=== PATIENT | male | born 1955 | race Caucasian/White ===

== ENCOUNTER 2019-08-29 14:07 | Emergency (ER) | payer MEDICARE, SELFPAY | END 2019-08-29 14:18 | disposition left against medical advice (07) | LOC: EXPBETH 14:12 | PROVIDERS: Emergency Provider Nurse Practitioner Family; PCP Family Medicine | DX: Z53.21 Procedure and treatment not carried out due to patient leaving prior to being seen by health care provider (principal) | CPT/HCPCS: 99199 ==

== ENCOUNTER 2020-09-26 12:33 | Outpatient (CLI) | payer MEDICARE, SELFPAY ==
--- NOTE | ~2020-09-26 | MR_ITS ---
EXAMINATION: MR brain/brain stem wo con DATE: 09/26/2020 15:22 INDICATION: Other amnesia. TECHNIQUE: Magnetic resonance imaging (MRI) of the brain and brainstem was performed without intraven ous contrast. Sequences included sagittal and axial T1-weighted FSE, axial diffusion-weighted FS EPI, axial T2*-weighted GRE, axial T2-weighted FLAIR Propeller, and axial T2-weighted Propeller. Apparent diffusion coefficient (ADC) maps were created. COMPARISON: None. FINDINGS: There is no intracranial hemorrhage, acute infarction, or abnormal intracranial mass lesion . The ventricles are normal in size. There is mucosal thickening in the paranasal sinuses. The orbits are normal. The mastoid air cells are normal. IMPRESSION: 1. Normal brain. Reviewed, dictated and finalized at location A. IMPRESSION: 1. Normal brain.
[2020-09-26 13:03] LABS: Hematocrit 42.1 % (42.0-52.0); Hemoglobin 14.2 g/dL (14.0-18.0); Mean Corpuscular HGB Conc 33.7 g/dl (32-36); Mean Corpuscular Volume 91.9 fl (80-100); Mean Platelet Volume 10.2 fl (7.4-10.4); Platelet Count Result 163 k/mm3 (150-375); Red Blood Count 4.58 M/mm3 (4.6-6.20); Red Cell Distribution Width 12.4 % (11.5-14.5); White Blood Count 4.7 K/mm3 (4.5-10.0)
[2020-09-26 13:21] LABS: Alanine Aminotransferase 25 U/L (4-50); Albumin Level 4.5 g/dL (3.5-5.1); Alkaline Phosphatase 80 U/L (38-126); Anion Gap 5 mmol/L (8-16); Aspartate Amino Transferase 34 U/L (17-59); Bilirubin,Total 0.8 mg/dL (0.2-1.3); Blood Urea Nitrogen 31 mg/dL (9-20); Calcium 9.9 mg/dL (8.4-10.2); Carbon Dioxide 36 mmol/L (22-30); Chloride 99 mmol/L (98-107); Estimated Glomerular Filt Rate > 60; Glucose 157 mg/dL (75-110); Potassium 4.2 mmol/L (3.4-5.0); Sodium 140 mmol/L (137-145)
--- NOTE | 2020-09-28 11:35 | WPDNEUROLOGY ---
Neurology EEG Report General Information Date of Study: 09/26/20 TEST EEG DIAGNOSIS memory loss CONDITION OF RECORDING awake drowsy and sleep EEG NUMBER [id number] CLINICAL HISTORY patient reported he has noted a decline in his memory for the last several months and seems to be getting worse. There is strong family history of dementia EEG DESCRIPTION basic resting occipital frequency consists of large amount of well-organized low voltage 11 to 13 hertz per 2nd alpha admixed with low-voltage 15 to 18 hertz per 2nd beta intermittent regular EKG artifact seen during wakefulness drowsiness and sleep. Low-voltage beta activity seen diffusely admixed with waxing and waning posterior alpha rhythm during drowsiness. Bilateral symmetrical sleep activity seen during sleep. Hyperventilation not done. Photic stimulation produced poor drive. Non paroxysmal. Nonfocal. Nonlateralizing. IMPRESSION No significant abnormalities noted
[2020-10-01 21:24] LABS: Albumin 4.1 g/dL (3.8-4.8); Alpha 1 Globulin 0.3 g/dL (0.2-0.3); Alpha 2 Globulin 0.8 g/dL (0.5-0.9); Beta 1 Globulin 0.4 g/dL (0.4-0.6); Gamma Globulin 0.8 g/dL (0.8-1.7); Protein, Total 6.8 g/dL (6.1-8.1)
== END 2020-09-26 12:34 | disposition home or self-care (01) ==
PROVIDERS: PCP Family Medicine; Visit Provider Psychiatry & Neurology Neurology
DX: R41.3 Other amnesia (principal); F03.90 Unspecified dementia, unspecified severity, without behavioral disturbance, psychotic disturbance, mood disturbance, and anxiety
CPT/HCPCS: 36415; 70551; 80053; 82607; 84155; 84165; 85027; 95816

== ENCOUNTER 2021-04-10 16:50 | Emergency (ER) | payer MEDICARE, SELFPAY ==
[2021-04-10 16:57] VITALS: BP 175/90; PULSE 65; RESP 18; TEMP 36.1; O2SAT 98
[2021-04-10 17:09] VITALS: BP 175/90; PULSE 65; RESP 18; TEMP 36.1; O2SAT 98
--- NOTE | 2021-04-10 17:18 | ED.EAR ---
HPI - Ear Problem General Chief complaint: Ear Stated complaint: tip of hearing aid in ear Time Seen by Provider: 04/10/21 17:04 Source: patient and RN notes reviewed Mode of arrival: ambulatory Limitations: no limitations History of Present Illness HPI Narrative: Patient presents today complaining that a piece of his hearing aid is caught in his right ear canal for the past 5 days. He has been flushing it with water and hydrogen peroxide and has not been able to get it out. He is able to visualize it with an instrument that he cleans his ears out with. Denies any current pain MD Complaint: foreign body Related Data Home Medications Medication Instructions Recorded Confirmed atorvastatin 80 mg tablet 80 mg PO DAILY 05/02/19 04/10/21 carvedilol 25 mg tablet 25 mg PO .daily with food tablet 05/02/19 04/10/21 isosorbide mononitrate 30 mg 30 mg PO DAILY 05/02/19 04/10/21 tablet,extended release 24 hr metformin 500 mg tablet 500 mg PO BID 05/02/19 04/10/21 losartan 25 mg tablet 25 mg PO DAILY 05/10/19 04/10/21 aspirin 81 mg tablet,delayed 81 mg PO DAILY 08/10/19 04/10/21 release ezetimibe 10 mg tablet 10 mg PO DAILY 07/15/20 04/10/21 ferrous sulfate 325 mg (65 mg 325 mg PO DAILY 07/15/20 04/10/21 iron) tablet Allergies Allergy/AdvReac Type Severity Reaction Status Date / Time No Known Allergies Allergy Verified 04/10/21 16:58 Review of Systems Review of Systems: CONSTITUTIONAL: Denies body aches, fever, chills, or sweats. EYES: Denies visual changes, redness, or discharge. ENT: Denies rhinorrhea, congestion, sore throat, or otalgia.+ Foreign body to right ear CARDIOVASCULAR: Denies chest pain, palpitations, or edema. RESPIRATORY: Denies cough or dyspnea. GASTROINTESTINAL: Denies abdominal pain, nausea, vomiting, or diarrhea. GENITOURINARY: Denies dysuria or hematuria. SKIN: Denies rash, itching, or wounds. MUSCULOSKELETAL: Denies back pain, joint pain, or myalgia. NEUROLOGIC: Denies headache, numbness, tingling, or weakness. PSYCH: Denies depression or anxiety. [facility] Past Medical History Medical History CAD (coronary artery disease) Chronic insomnia Essential hypertension Hypogonadism Obstructive sleep apnea syndrome in adult Surgical History Surgical History History of knee replacement S/P triple vessel bypass Family History Family History Father Family history of cardiovascular disease Mother Family history of cardiovascular disease Social History Social History Social History: former smoker Smoking packs per day: 1 Smoking cigarettes per day: 20.0 Years smoked: 10 Smoking pack-years: 10.00 Smoking status: Former smoker Tobacco type: cigarettes Second hand tobacco smoke exposure: No Smoking end date: 05/24/83 Alcohol intake: current Drinks per week: 5 Comments At time of signature, I have reviewed and agree with nursing past medical, surgical, social and family history unless otherwise noted. Please see nursing chart for further information. There is no relevant family history pertinent to the presenting complaint Exam Narrative: GENERAL: Well-appearing, well-nourished, and in no acute distress. HEAD: Normocephalic, atraumatic. EYES: EOMI. No redness or drainage. Conjunctivae normal. ENT: Mucous membranes pink and moist. Right ear: Black plastic foreign body completely occludes ear canal. It is deep in the ear canal, likely very close to the TM. NECK: Normal AROM. CHEST: No respiratory distress. EXTREMITIES: Normal range of motion. No edema. SKIN: Warm, dry, no rash. Capillary refill normal. Normal skin turgor. NEURO: No focal deficits. Alert and oriented x3. Gait steady. PSYCH: Normal affect. No signs of depress
== END 2021-04-10 17:25 | disposition home or self-care (01) ==
PROVIDERS: Emergency Provider Nurse Practitioner; PCP Family Medicine
DX: T16.1XXA Foreign body in right ear, initial encounter (principal); X58.XXXA Exposure to other specified factors, initial encounter; I25.10 Atherosclerotic heart disease of native coronary artery without angina pectoris; I10 Essential (primary) hypertension; G47.33 Obstructive sleep apnea (adult) (pediatric); Z79.82 Long term (current) use of aspirin; Z87.891 Personal history of nicotine dependence
CPT/HCPCS: 69200; 99212; G0463

== ENCOUNTER 2022-02-24 15:20 | Emergency (ER) | payer MEDICARE, SELFPAY ==
--- NOTE | ~2022-02-24 | XR_ITS ---
EXAMINATION: XR foot LT min 3V DATE: 02/24/2022 15:47 INDICATION: Left foot injury and pain. TECHNIQUE: 4 views of left foot were obtained. COMPARISON: None. FINDINGS: Bone alignment is normal. There is fusion of fifth middle and distal phalanges. There is a stellate fracture of the fusion mass. There is a nondisplaced stellate fracture of head and neck of f ifth proximal phalanx. There is severe osteoarthritis of first metatarsophalangeal joint and mild ost eoarthritis of talonavicular joint and some of the interphalangeal joints. There are enthesophytes at the posterior and plantar aspects of calcaneal tuberosity. IMPRESSION: 1. Nondisplaced stellate fractures of the fifth digit phalanges. 2. Polyarticular osteoarthritis. Reviewed, dictated and finalized at location A.
[2022-02-24 15:26] VITALS: BP 114/58; PULSE 64; RESP 14; TEMP 36.4; O2SAT 98
--- NOTE | 2022-02-24 15:37 | ED.LOWEXIN ---
HPI - Extremity Injury (Lower) General Chief Complaint: Extremity Injury, Lower Stated Complaint: Injury to left pinky toe Time Seen by Provider: 02/24/22 15:37 Source: patient Mode of arrival: ambulatory Limitations: no limitations History of Present Illness HPI Narrative: 66 y/o male presented for c/o left little toe pain after injury 3 days ago. States he dropped a piece of steel equipment on the toe. Endorses swelling and bruising to the site, and the pain now radiates across the top of the foot. Has not taken anything for pain. Denies numbness or tingling to the toe. Related Data Home Medications Medication Instructions Recorded Confirmed ferrous sulfate 325 mg (65 mg 325 mg PO DAILY 07/15/20 09/11/21 iron) tablet (Feosol) Allergies Allergy/AdvReac Type Severity Reaction Status Date / Time No Known Allergies Allergy Verified 02/24/22 15:36 Review of Systems Review of Systems: CONSTITUTIONAL: Denies body aches, fever, chills CARDIOVASCULAR: Denies chest pain, palpitations, or edema. RESPIRATORY: Denies cough or dyspnea. SKIN: Denies rash or wounds. MUSCULOSKELETAL: Reports left toe pain NEUROLOGIC: Denies headache, numbness, tingling, or weakness. All systems reviewed & are unremarkable except as noted in HPI and below PMFSH Past Medical History Medical History CAD (coronary artery disease) Chronic insomnia Essential hypertension Hypogonadism Obstructive sleep apnea syndrome in adult Surgical History Surgical History History of knee replacement S/P triple vessel bypass Family History Family History Father Family history of cardiovascular disease Mother Family history of cardiovascular disease Social History Social History Social History: former smoker Smoking packs per day: 1 Smoking cigarettes per day: 20.0 Years smoked: 10 Smoking pack-years: 10.00 Smoking status: Former smoker Tobacco type: cigarettes Second hand tobacco smoke exposure: No Smoking end date: 05/24/83 Alcohol intake: current Drinks per week: 5 Comments At time of signature, I have reviewed and agree with nursing past medical, surgical, social and family history unless otherwise noted. Please see nursing chart for further information. There is no relevant family history pertinent to the presenting complaint Exam Narrative: GENERAL: Well-appearing CHEST: Speaks in full sentences. No respiratory distress. HEART: Regular rate and rhythm. Normal and equal peripheral pulses. EXTREMITIES: Left 5th toe with moderate swelling and bruising; tenderness to palpation lateral aspect of proximal phalanx; no obvious deformity; foot has normal strength, sensation, and normal range of motion with subjective 5th toe pain with movement. Bruising noted across 2nd-5th toes at MTP sites. No open wounds or obvious deformity; pulse palpable and equal bilaterally, skin warm, dry, pink. Capillary refill less than 3 seconds. SKIN: Warm, dry, no rash. NEURO: Alert and oriented x3. PSYCH: Normal mood and affect Course Course Emergency Course: Patient is aware of diagnosis, understands and agrees to treatment plan. Anticipatory guidance given. Patient agrees to follow-up as directed and is aware of reasons to seek care at the emergency department. Portions of this record may have been created with voice recognition software Level of Care: Express Care Visit Vital Signs Vital signs: Vital Signs Temperature 97.6 F 02/24/22 15:26 Pulse Rate 64 02/24/22 15:26 Respiratory Rate 14 02/24/22 15:26 Blood Pressure 114/58 L 02/24/22 15:26 Pulse Oximetry 98 02/24/22 15:26 Oxygen Delivery Room Air 02/24/22 15:26 Temperature 97.6 F 02/24/22 15:38 Pulse Rate 64
[2022-02-24 15:38] VITALS: BP 114/58; PULSE 64; RESP 14; TEMP 36.4; O2SAT 98
== END 2022-02-24 16:18 | disposition home or self-care (01) ==
PROVIDERS: Emergency Provider Nurse Practitioner Family; PCP Family Medicine
DX: S92.515A Nondisplaced fracture of proximal phalanx of left lesser toe(s), initial encounter for closed fracture (principal); W20.8XXA Other cause of strike by thrown, projected or falling object, initial encounter; I25.10 Atherosclerotic heart disease of native coronary artery without angina pectoris; I10 Essential (primary) hypertension; G47.33 Obstructive sleep apnea (adult) (pediatric); Z87.891 Personal history of nicotine dependence
CPT/HCPCS: 73630; 99214; G0463

== ENCOUNTER 2023-12-13 08:08 | Outpatient (CLI) | payer OTHER, SELFPAY ==
[2023-12-13 18:47] LABS: Hematocrit 45.2 % (42.0-52.0); Hemoglobin 14.5 g/dL (14.0-18.0); Mean Corpuscular HGB Conc 32.1 g/dl (32-36); Mean Corpuscular Hemoglobin 29.9 pg (26-34); Mean Corpuscular Volume 93.2 fl (80-100); Mean Platelet Volume 10.6 fl (7.4-10.4); Platelet Count Result 199 k/mm3 (150-375); Red Blood Count 4.85 M/mm3 (4.6-6.20); Red Cell Distribution Width 14.5 % (11.5-14.5); White Blood Count 3.2 K/mm3 (4.5-10.0)
[2023-12-13 19:03] LABS: Alanine Aminotransferase 22 U/L (6-50); Alkaline Phosphatase 79 U/L (38-126); Anion Gap 9 mmol/L (4-12); Aspartate Amino Transferase 48 U/L (17-59); Bilirubin,Total 0.7 mg/dL (0.2-1.3); Blood Urea Nitrogen 25 mg/dL (9-20); Calcium 9.1 mg/dL (8.4-10.2); Carbon Dioxide 30 mmol/L (22-30); Chloride 98 mmol/L (98-107); Cholesterol 206 mg/dL (0-200); Estimated Glomerular Filt Rate > 60; Glucose 122 mg/dL (65-110); HDL Direct 39 mg/dL; Sodium 137 mmol/L (137-145); Triglycerides 171 mg/dL (<150)
[2023-12-13 19:14] LABS: LDL Cholesterol Direct 138 mg/dL
[2023-12-13 19:18] LABS: Hemoglobin A1C 7.1 % (<5.7)
[2023-12-13 19:31] LABS: Creatinine Urine 110.7 mg/dL
[2023-12-13 19:34] LABS: Prostate Specific Antigen 3.1 ng/mL (< OR = 4.0)
[2023-12-13 19:40] LABS: MALB Creatinine Ratio 112.3 mg/g (0-30); Microalbumin Urine Random 124.3 mg/L (0-16.7)
[2023-12-17 18:14] LABS: Testosterone Free 27.6 pg/mL (35.0-155.0); Testosterone Total 210 ng/dL (250-1100)
== END 2023-12-13 08:09 | disposition home or self-care (01) ==
PROVIDERS: PCP Nurse Practitioner Adult Health; Visit Provider Family Medicine
DX: Z12.5 Encounter for screening for malignant neoplasm of prostate (principal); I10 Essential (primary) hypertension; E11.9 Type 2 diabetes mellitus without complications; E29.1 Testicular hypofunction
CPT/HCPCS: 36415; 80053; 80061; 82043; 82565; 83036; 84153; 84402; 84403; 85027; G0103

== ENCOUNTER 2024-01-19 08:48 | Outpatient (CLI) | payer OTHER, SELFPAY ==
[2024-01-19 20:23] LABS: Albumin Level 4.2 g/dL (3.5-5.1); Anion Gap 9 mmol/L (4-12); Blood Urea Nitrogen 19 mg/dL (9-20); Calcium 9.1 mg/dL (8.4-10.2); Carbon Dioxide 32 mmol/L (22-30); Chloride 96 mmol/L (98-107); Estimated Glomerular Filt Rate 60; Glucose 112 mg/dL (65-110); Phosphorus 3.4 mg/dL (2.5-4.5); Potassium 4.2 mmol/L (3.4-5.0); Sodium 137 mmol/L (137-145)
== END 2024-01-19 08:49 | disposition home or self-care (01) ==
PROVIDERS: PCP Nurse Practitioner Adult Health; Visit Provider Nurse Practitioner Adult Health
DX: N28.9 Disorder of kidney and ureter, unspecified (principal)
CPT/HCPCS: 36415; 80069

== ENCOUNTER 2024-03-23 08:28 | Outpatient (CLI) | payer OTHER, SELFPAY ==
[2024-03-23 19:03] LABS: Alanine Aminotransferase 28 U/L (6-50); Albumin Level 4.5 g/dL (3.5-5.1); Alkaline Phosphatase 77 U/L (38-126); Anion Gap 10 mmol/L (4-12); Aspartate Amino Transferase 82 U/L (17-59); Bilirubin,Total 0.7 mg/dL (0.2-1.3); Blood Urea Nitrogen 21 mg/dL (9-20); Calcium 9.6 mg/dL (8.4-10.2); Carbon Dioxide 32 mmol/L (22-30); Chloride 100 mmol/L (98-107); Cholesterol 99 mg/dL (0-200); Estimated Glomerular Filt Rate > 60; Glucose 96 mg/dL (65-110); HDL Direct 34 mg/dL; Potassium 4.3 mmol/L (3.4-5.0); Sodium 142 mmol/L (137-145); Triglycerides 74 mg/dL (<150)
[2024-03-23 19:14] LABS: LDL Cholesterol Direct 45 mg/dL
[2024-03-23 19:26] LABS: Creatinine Urine 81.9 mg/dL
[2024-03-23 19:34] LABS: Prostate Specific Antigen 2.1 ng/mL (< OR = 4.0)
[2024-03-23 19:44] LABS: MALB Creatinine Ratio 293.8 mg/g (0-30); Microalbumin Urine Random 240.6 mg/L (0-16.7)
[2024-03-23 22:46] LABS: Hemoglobin A1C 6.1 % (<5.7)
[2024-03-30 19:38] LABS: Testosterone Free 146.3 pg/mL (35.0-155.0); Testosterone Total 986 ng/dL (250-1100)
== END 2024-03-23 08:29 | disposition home or self-care (01) ==
PROVIDERS: PCP Nurse Practitioner Adult Health; Visit Provider Nurse Practitioner Adult Health
DX: E11.9 Type 2 diabetes mellitus without complications (principal); R79.89 Other specified abnormal findings of blood chemistry; R41.3 Other amnesia; Z12.5 Encounter for screening for malignant neoplasm of prostate
CPT/HCPCS: 36415; 80053; 80061; 82043; 82565; 82607; 83036; 84153; 84402; 84403; G0103

== ENCOUNTER 2024-09-07 10:21 | Outpatient (CLI) | payer OTHER, SELFPAY ==
--- OUTSIDE RECORDS SUMMARY | 2024-09-07 11:16 | XMS_ITS | Clinical Summary ---
Author Organization [facility] Medical Office Building B Address [address] [place] [address] Care Team Providers Care Weigher Production Name Role Phone Dimitri Keith MD Primary Care Provider [phone] Caleb Mazariegos NP Unavailable [phone] Antwan Monroy MD Unavailable [phone] Allergies No known active allergies Medications omeprazole (PriLOSEC) 20 mg capsule Take 1 capsule (20 mg total) by mouth daily 7 Active ferrous sulfate 325 mg (65 mg of elemental iron) tablet Take 1 tablet (325 mg total) by mouth daily with breakfast 8 Active donepeziL (ARICEPT) 10 mg tablet Take 1 tablet (10 mg total) by mouth nightly Active doxepin (SINEquan) 10 mg capsule Take 1 capsule (10 mg total) by mouth Active memantine (NAMENDA) 10 mg tabletIndication s:Moderate to Severe Alzheimer's Type Dementia Take 1 tablet (10 mg total) by mouth 2 (two) times a day Active isosorbide mononitrate ER (IMDUR) 30 mg 24 hr tablet Take 1 tablet (30 mg total) by mouth daily Active aspirin 81 mg enteric coated tabletIndication s:prevention of thrombosis Take 1 tablet (81 mg total) by mouth 2 (two) times a day 60 tablet 4 Active Additional Information Patient taking differently:81 mg oralDaily, Indications: prevention of thrombosis, Reported on 01/12/2024 ascorbic acid (VITAMIN C) 500 mg tablet,chewable Take 1 tablet/chew tab (500 mg total) by mouth 2 (two) times a day 60 tablet/chew tab 4 Active Nexlizet 180-10 mg tablet Take 1 tablet by mouth daily 4 Active ergocalciferol (VITAMIN D) 50,000 unit capsule Take 1 capsule (50,000 Units total) by mouth once a week 4 Active clopidogreL (PLAVIX) 75 mg tablet Take 1 tablet (75 mg total) by mouth daily 4 Active ezetimibe (ZETIA) 10 mg tablet Take 1 tablet (10 mg total) by mouth daily 4 Active polyethylene glycol (MIRALAX) 17 gram/dose bulk powderIndication s:constipation Take 17 g by mouth daily as needed (constipation) 238 g 4 Active buPROPion XL (WELLBUTRIN XL) 150 mg 24 hr tablet Take 1 tablet (150 mg total) by mouth daily 4 Active tirzepatide (Mounjaro) 2.5 mg/0.5 mL pen injector Inject 0.5 mL (2.5 mg total) under the skin once a week Start Mounjaro 2.5mg weekly for 4 weeks, then increase to 5.0 mg weekly for 4 weeks it tolerated 2 mL 6 4 Active blood glucose diagnostic (glucose blood) strip Check blood sugar daily 100 each 5 4 Active methylPREDNISolo ne (Medrol, Noe,) 4 mg Dosepack Take as directed on package 1 packet 4 Active amLODIPine (NORVASC) 10 mg tablet Take 1 tablet (10 mg total) by mouth daily 4 Active atorvastatin (LIPITOR) 80 mg tablet Take 1 tablet (80 mg total) by mouth daily 4 Active citalopram (CeleXA) 40 mg tablet Take 1 tablet (40 mg total) by mouth daily 4 Active Multaq 400 mg tablet Multaq 400 mg tablet 4 Active testosterone 20.25 mg/1.25 gram (1.62 %) gel in metered-dose pump 20.25 MG TOPICALLY DAILY APPLY 1 PUMP AMOUNT OVER MAX AREA OF ONE UPPER ARM AND SHOULDER 5 Active eszopiclone (LUNESTA) 3 mg tablet TAKE 1 TABLET BY MOUTH EVERY DAY AT BEDTIME NEEDED FOR INSOMNIA 5 Active losartan (COZAAR) 50 mg tablet Take 1 tablet (50 mg total) by mouth 2 (two) times a day 5 Active metFORMIN (GLUCOPHAGE) 500 mg tablet TAKE 1 TABLET BY MOUTH TWICE A DAY WITH MORNING AND EVENING MEAL 4 Active Jardiance 25 mg tablet Take 1 tablet (25 mg total) by mouth daily 30 tablet 5 5 Active Hospital, Clinic, or Other Facility Administered Medication Ordered Dose Route Frequency Start Date End Date Status lidocaine (XYLOCAINE) 20 mg/mL (2 %) injection 3 mLIndications:Admi nistration of Local Anesthesia 3 mL One-Time Injection 08/16/2024 08/16/2024 Ended lidocaine (XYLOCAINE) 20 mg/mL (2 %) injection 3 mLIndications:Admi nistration of Local Anesthesia 3 mL One-Time Injection 08/16/2024 08/16/2024 Ended methylPREDNISolone acetate (DEPO-medrol) injection 80 mgIndications:Oste oarthritis of bilateral glenohumeral joints,Osteoarthri tis of AC (acromioclavicular ) joints, bilateral 80 mg intra-artic One-Time Injection 08/16/2024 08/16/2024 Ended methylPREDNISolone acetate (DEPO-medrol) injection 80 mgIndications:Oste oarthritis of bilateral glenohumeral joints,Osteoarthri tis of AC (acromioclavicular ) joints, bilateral 80 mg intra-artic One-Time Injection 08/16/2024 08/16/2024 Ended Active Problems Problem Noted Date Diagnosed Date Dyslipidemia 01/13/2024 Chest pain 01/12/2024 Elevated troponin 01/12/2024 S/P coronary artery stent placement 01/12/2024 Hx of CABG 01/12/2024 Increase in serum creatinine from prior measurem ent 01/12/2024 Primary osteoarthritis of right knee 08/05/2023 Personal history of colonic polyps 09/17/2022 Encounter for screening colonoscopy 09/17/2022 Foreign body of right ear 04/28/2021 Assessment & Plan (04/28/2021 8:47 AM DRY COLOR MIXER): Avoid ear cleaning techniques Avoid water to ears Continue Hearing aids Sensorineural hearing loss (SNHL) of both ears 1 06/29/2020 Assessment & Plan (04/28/2021 8:47 AM DRY COLOR MIXER): Continue Hearing aids Impotence due to erectile dysfunction 02/11/2016 Left shoulder pain 10/03/2015 History of sleeve gastrectomy 07/02/2015 Chronic coronary artery disease 04/30/2015 Sensorineural hearing loss 09/10/2014 Corneal abrasion 03/23/2014 Ptosis of eyelid 03/23/2013 Blurred vision 02/22/2013 Dermatochalasis 02/22/2013 Trace cataracts 02/22/2013 Obesity surgery status 04/29/2012 Achilles tendinitis of right lower extremity 06/2011 Type 2 diabetes mellitus 11/24/2011 Impingement syndrome of shoulder 12/03/2009 Depression 07/30/2009 LEA (obstructive sleep apnea) 07/30/2009 Obesity 07/25/2009 GERD (gastroesophageal reflux disease) 8 Hypertension 03/29/2008 CAD (coronary artery disease) 01/19/2008 Overview (05/28/2017): Overview: ? 2vd in 2000 on cath at [facility]. Normal stress echo 2008 CABG 03/2015 - scanned report in chart PCI SENIOR ACCOUNT CLERK to RCA 11/11/2015 Hyperlipemia 01/19/2008 Testicular hypogonadism 01/19/2008 Encounters Date Type Department Care Team Description 08/16/2024 8:30 AM CDT Office Visit [facility] Orthopedics and Sports Medicine [address] [place] [address] [address], [place] [address] Sukhjinder Kaufman PA Osteoarthritis of bilateral glenohumeral joints (Primary Dx); Osteoarthritis of AC (acromioclavicular) joints, bilateral 08/16/2024 7:52 AM CDT - 08/16/2024 11:59 PM CDT Hospital Encounter [facility] Orthopedics and Sports Medicine [address] [place] [address] [address] [place] [address] Discharge Disposition: Discharge to home or self care 08/14/2024 Telephone [facility] Orthopedics and Sports Medicine [address] [facility] [address] [place] [address] Kenyon Ayon MD 06/20/2024 10:30 AM DRY COLOR MIXER Office Visit [facility] Diabetes Endocrine Care at [address] [place] [address] Oren Peguero, DO Type 2 diabetes mellitus with other specified complication, without long-term current use of insulin (HCC) (Primary Dx); Hypertension associated with diabetes (HCC); Hyperlipidemia associated with type 2 diabetes mellitus (HCC) from Last 3 Months Surgical History Surgery Date Site/Laterality Comments CARDIAC SURGERY CORONARY ARTERY BYPASS GRAFT 2014 3 vessels JOINT REPLACEMENT Left TKA KNEE SURGERY 05/11/2017 left knee CARDIAC STENT PLACEMENT 3 stents Medical History Medical History Date Comments Hiatal hernia GERD (gastroesophageal reflux disease) Hypertension Hypercholesteremia Diabetes mellitus (HCC) Type 2 diabetes mellitus (HCC) Sleep apnea Family History Medical History Relation Name Comments Gout Other Heart disease Other Hypertension Other Relation Name Status Comments Other Social History Tobacco Use Types Packs/Day Years Used Date Smoking Tobacco: Former Cigarettes Q uit: 1967 Smokeless Tobacco: Never Tobacco Cessation:Counseling Given: Not Answered Alcohol Use Standard Drinks/Week Comments Yes 0 (1 standard drink = 0.6 oz pur e alcohol) OCCASIONAL [employer] Utilities Answer Date Recorded In the past 12 months has e electric, gas, oil, or water company threatened to shut off services in your home? No 01/13/2024 Social Connection and Isolat ion Panel [NHANES] Answer Date Recorded In a typical week, how many times do you talk on the phone with family, friends, or neighbors? More than three times a week 01/13/2024 How often do you get togethe r with friends or relatives? More than three times a week 01/13/2024 How often do you attend chur ch or amish services? More than 4 times per year 01/13/2024 Do you belong to any clubs o r organizations such as gnosticism groups, unions, fraternal or athletic groups, or school groups? Yes 01/13/2024 How often do you attend meet ings of the clubs or organizations you belong to? More than 4 times per year 01/13/2024 Are you , , di vorced, , never , or living with a partner? 01/13/2024 AUDIT-C Answer Date Recorded Q1: How often do you have a drink containing alc ohol? 2-3 times a week 08/10/2023 Q2: How many drinks containi ng alcohol do you have on a typical day when you are drinking? 1 or 2 08/10/2023 Q3: How often do you have si x or more drinks on one occasion? Never 08/10/2023 Overall Financial Resource Strain (CARDIA) Answe r Date Recorded How hard is it for you to pa y for the very basics like food, housing, medical care, and heating? Not hard at all 01/13/2024 Hunger Vital Sign Answer Date Recorded Within the past 12 months, y ou worried that your food would run out before you got the money to buy more. Never true 01/13/20 24 Within the past 12 months, t he food you bought just didn't last and you didn't have money to get more. Never true 01/13/2024 PRAPARE - Transportation Answer Date Re corded In the past 12 months, has l ack of transportation kept you from medical appointments or from getting medications? No 12/23 In the past 12 months, has l ack of transportation kept you from meetings, work, or from getting things needed for daily living? No 01/13/2024 Housing Stability Vital Sign Answer Martin e Recorded In the last 12 months, was t here a time when you were not able to pay the mortgage or rent on time? No 01/13/2024 In the past 12 months, how m any times have you moved where you were living? 0 01/13/2024 At any time in the past 12 m [facility], were you homeless or living in a senior care (including now)? No 01/13/2024 Personal Safety Answer Date Recorded Have you ever been in or are you currently in a harmful physical or emotional relationship or is someone making you feel afraid or unsafe? Denies 01/11/2024 Sex and Gender Information Value Date Recorded Sex Assigned at Not on file Legal Sex Male 4:37 PM DRY COLOR MIXER Gender Identity Not on file Sexual Orientation Straight 04/21/2021 7: 57 AM DRY COLOR MIXER Obstetrics History Last Filed Vital Signs Vital Sign Reading Time Taken Comments Blood Pressure 151/79 08/16/2024 8:34 AM CDT Pulse 64 08/16/2024 8:34 AM CDT Temperature 36.9 C (98.5 F) 01/14/2024 11:24 AM CDT Respiratory Rate 15 01/14/2024 3:00 PM CDT Oxygen Saturation 92% 01/14/2024 3:00 PM CDT Inhaled Oxygen Concentration - - Weight 96.6 kg (213 lb) 08/16/2024 8:34 AM CDT Height 175.3 cm (5' 9 ) 08/16/2024 8:34 AM CDT Body Mass Index 31.45 08/16/2024 8:34 AM CDT Plan of Treatment Health Maintenance Due Date Last Done Comments Depression Screening 1955 Hepatitis C Screening 1955 Hepatitis B Screening 1972 Well Visit 65+ 08/18/2019 Zoster Vaccine (2 of 3) 04/14/2021 02/17/2021, 03/20 Pneumococcal vaccine 65+ (2 of 2 - PCV) 02/17/2022 02/17/2021, 02/11/2011 Covid-19 Vaccine (2 - 2023-2 5 season) 2024 12/04/2020 Influenza Vaccine (#1) 2024 3, 02/23/2012, 02/11/2011 Dilated Eye Exam 06/23/2024 06/23/2023 Hemoglobin A1C 12/18/2024 06/20/2024, 082 07/2023, 05/03/2017 Lipid Panel 01/11/2025 01/12/2024, 07/3 05/2023, 07/05/2015, Additional history exists Fall Risk Assessment 01/13/2025 01/14/2024 Foot Exam 03/14/2025 03/14/2024 Albumin Creatinine Ratio, Urine 05/09/2025 , 12/22/2023 eGFR 05/09/2025 05/09/2024, 12/23, 01/13/2024, Additional history exists DTaP/Tdap/Td Vaccine (2 - Td or Tdap) 10/14/2025 10/15/2015, 10/22/2005 Colon Cancer Screening-Colonoscopy 09/25/2032 09/25/2022 Abdominal Aortic Aneurysm (A AA) Screen Completed 08/29/2019, 04/05/2014 Colon Cancer Screening-CT Colonography Discontinued 09/25/2022 Colon Cancer Screening-DNA Stool Discontinued 09/26/19 Colon Cancer Screening-FIT Discontinued 09/25/2022 Colon Cancer Screening-Sigmoidoscopy Discontinued 09/25/2022 Medical Devices Implanted Type Area Vacuum Tester Cans Device Identifier Shelf Expiration Date Model / Serial / Lot Cement Bone Smartset Gentamicin 40 Gm High Viscosity - [id number] Implanted:Qty: 1 on 05/11/2017 by Kenyon Ayon MD at [facility] Left: Knee [employer] 09/20/2018 [id number] / / [id number] Cement Bone Smartset Gentamicin 40 Gm High Viscosity - [id number] Implanted:Qty: 1 on 05/11/2017 by Kenyon Ayon MD at [facility] Left: Knee [employer] 10/21/2018 [id number] / / [id number] Stem Femoral Attune L50 Mm Od14 Mm Knee Cemented Revision Sterile - [id number] Implanted:Qty: 1 on 05/11/2017 by Kenyon Ayon MD at [facility] Left: Knee [employer] 03/23/2027 [id number] / / [id number] Bsplt Tibial Attune 7 Rev Cmnt Fix Brng Strl Knee System - [id number] Implanted:Qty: 1 on 05/11/2017 by Kenyon Ayon MD at [facility] Left: Knee [employer] 11/20/2026 [id number] / / [id number] Component Femoral Attune 7 Knee Left Cemented Posterior Stabilize Sterile - [id number] Implanted:Qty: 1 on 05/11/2017 by Kenyon Ayon MD at [facility] Left: Knee [employer] 01/21/2027 [id number] / / [id number] Dome Patellar Attune Aox H41 Mm Knee Cemented Medialize Sterile - [id number] Implanted:Qty: 1 on 05/11/2017 by Kenyon Ayon MD at [facility] Left: Knee [employer] 01/21/2022 [id number] / / [id number] Insert Tibial Attune Aox 7 H6 Mm Knee Posterior Stabilize Fix Bearing Sterile - [id number] Implanted:Qty: 1 on 05/11/2017 by Kenyon Ayon MD at [facility] Left: Knee [employer] 01/21/2022 [id number] / / [id number] [employer] Attune Fb Tib Base Sz 7 Por [id number] - [id number] Implanted:Qty: 1 on 08/10/2023 by Kenyon Ayon MD at [facility] Right: Knee [employer] [id number] 06/23/2033 [id number] / / [id number] [employer] Attune Cruciate Retain Cementless Knee Right 7 Component Femoral [id number] - [id number] Implanted:Qty: 1 on 08/10/2023 by Kenyon Ayon MD at [facility] Right: Knee [employer] [id number] 06/23/2033 [id number] / / [id number] [employer] Insert Tibial Knee Fixed Rm Posterior Stabilized Attune 6mm Size 7 Polyethylene [id number] - [id number] Implanted:Qty: 1 on 08/10/2023 by Kenyon Ayon MD at [facility] Right: Knee [employer] [id number] 12/21/2030 [id number] / / [id number] Medtronic Card Vasc Surgery 2.50 X 15mm Rios [employer] Rx Coronary Stent [id number] - [id number] Implanted:Qty: 1 on 01/13/2024 by Liam Mack MD at [facility] [employer] Card Vasc Surgery 10/07/2026 [id number] / / [id number] Procedures Procedure Name Priority Date/Time Associated Diagnosis Comments MT ARTHROCENTESIS ASPIR&/INJ MAJOR JT/BURSA W/O US Routine 08/16/2024 8:30 AM CDT 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, bilateral XR SHOULDER BILATERAL 2+ VIEWS Routine 08/16/2024 8:26 AM CDT Osteoarthritis of bilateral glenohumeral joints POCT HEMOGLOBIN A1C Routine 06/20/2024 1 0:30 AM DRY COLOR MIXER Type 2 diabetes mellitus with other specified complication, without long-term current use of insulin (HCC) EGFR Routine 05/09/2024 10:40 AM DRY COLOR MIXER ALBUMIN CREATININE RATIO, URINE Routine 05/09/2024 10:40 AM DRY COLOR MIXER LIPID PANEL Routine 01/12/2024 4:48 AM CDT DIABETIC EYE EXAM Routine 06/23/2023 COLONOSCOPY 09/25/2022 8:[address] CHEST ABDOMEN PELVIS W CONTRAST ED 08/29/2019 5:21 PM CDT from Last 3 Months or Most Recently Relevant to Health Maintenance Results * MT ARTHROCENTESIS ASPIR&/INJ MAJOR JT/BURSA W/O US (08/16/2024 8:30 AM CDT) Narrative Sukhjinder Kaufman PA - 08/16/2024 8:30 AM CDT Sukhjinder Kaufman PA 08/16/2024 9:33 AM Large Joint (Hip, Knee, Shoulder) Injection: bilateral glenohumeral Performed by: Sukhjinder Kaufman PA Authorized by: Sukhjinder Kaufman PA Large Joint Injection/Aspiration: Consent Given by: Patient Site marked: the procedure site was marked Timeout: prior to procedure the correct patient, procedure, and site was verified Verbal consent obtained: Yes Supporting Documentation: Indications: Pain Procedure Details: Location: Shoulder Site: Bilateral glenohumeral Prep: patient was prepped using a clean technique Needle Size: 22 G Approach: Posterior Ultrasound guided: No Fluroscopic guidance: No Medications Right Large Joint Injection: 80 mg methylPREDNISolone acetate 80 mg/mL; 3 mL lidocaine 20 mg/mL (2 %) Medications Left Large Joint Injection: 80 mg methylPREDNISolone acetate 80 mg/mL; 3 mL lidocaine 20 mg/mL (2 %) Patient tolerance: Patient tolerated the procedure well with no immediate complications Sukhjinder ESCOBAR IN CLINIC/BEDSIDE [facility] Final Result * XR Shoulder Bilateral 2 or More Views (08/16/2024 8:26 AM CDT) Anatomical Region Laterality Modality Upper Extremities, Shoulder Digi gracie Radiography Narrative 08/16/2024 9:28 AM CDT Views of the bilateral shoulders reviewed interpreted today. No evidence of fracture dislocation. Advanced osteoarthritic changes noted at bilateral glenohumeral joints with keli-eg-sbwf changes, subchondral sclerosis, osteophyte formation. Sukhjinder ESCOBAR IMG XR PROCEDURES Gertrude l Result * POCT hemoglobin A1c (06/20/2024 10:30 AM DRY COLOR MIXER) Hemoglobin A1C, POC 6.9 4.0 - 5.6 % Blood 06/20/2024 10:3 0 AM DRY COLOR MIXER Oren Peguero DO POINT OF CARE TEST ORDERABL ES Final Result * (ABNORMAL) eGFR (05/09/2024 10:40 AM DRY COLOR MIXER) eGFR 53(L) >=60 mL/min/1. 73 m2 Comment: Interpretive Data Reference Interval Normal >/= 90 mL/min/1.73m2 Mildly decreased* 60 - 89 mL/min/1.73m2 Mildly to moderately decreased 45 - 59 mL/min/1.73m2 Moderately to severely decreased 30 - 44 mL/min/1.73m2 Severely decreased 15 - 29 mL/min/1.73m2 Kidney Failure < 15 mL/min/1.73m2 *Relative to young adult level Estimated glomerular filtration rate is determined by the 2020 CKD-EPI equation recommended by the National Kidney Foundation (A Unifying Approach to GFR Estimation: Recommendations of the NKF-ASK Task Force on Reassessing the Inclusion of Race in Diagnosing Kidney Disease, JASN 2020). The CKD-EPI equation should not be used for patients with unstable renal function and has not been validated in children and those over 70. Current interpretive data was last reviewed 2021. Blood 05/09/2024 10:4 0 AM DRY COLOR MIXER 05/09/2024 9:03 PM DRY COLOR MIXER us Antwan Monroy MD LAB BLOOD ORDERABLES Final Resu lt Performing Organization Address [facility] de Phone Number STAN [address] [address] [facility] [place] [address] * (ABNORMAL) Albumin Creatinine Ratio, Urine (05/09/2024 10:40 AM DRY COLOR MIXER) Albumin Ur 130.3 mg/L Comment: Interpretive Data No reference range established. Current interpretive data was last revised 2018. Creatinine Ur 108.3 mg/dL STAN Comment: Interpretive Data No reference range established. Current interpretive data was last revised 2018. Albumin Creatinine Ratio, Ur 120(H) 1 - 29 mg/g STAN Urine 05/09/2024 10:4 0 AM DRY COLOR MIXER 05/09/2024 8:58 PM DRY COLOR MIXER us Antwan Monroy MD LAB URINE ORDERABLES Final Resu lt Performing Organization Address [facility] de Phone Number [facility] [address] [facility] [place] [address] * (ABNORMAL) Lipid panel (01/12/2024 4:48 AM CDT) Cholesterol 164 30 - 199 mg/dL Comment: Interpretive Data Ages < or = 19 years Acceptable: <170 mg/dL Borderline high: 170-199 mg/dL High: >or= 200 mg/dL Ages > or = 20 years Desirable: <200 mg/dL Borderline high: 200-239 mg/dL High: >or= 240 mg/dL Literature References: 1. Expert Panel on Integrated Guidelines for Cardiovascular Health and Risk Reduction in Children and Adolescents. Pediatrics 2011;128:S213 2. NCEP Expert Panel. Circulation 2004;110:227 Current Interpretive Data was last revised on 2018. Triglycerides 175(H) <=149 mg/dL STAN PATINO Comment: Interpretive Data Ages < or = 9 years Acceptable: <75 mg/dL Borderline high: 75-99 mg/dL High: >or= 100 mg/dL Ages 10 to 20 years Acceptable: <90 mg/dL Borderline high: 90-129 mg/dL High: >or= 130 mg/dL Ages > or = 20 years Desirable: <150 mg/dL Borderline high: 150-199 mg/dL High: 200-499 mg/dL Very high: >or= 499 mg/dL Literature References: 1. Expert Panel on Integrated Guidelines for Cardiovascular Health and Risk Reduction in Children and Adolescents. Pediatrics 2011;128:S213 2. NCEP Expert Panel. Circulation 2003;110:227 Current Interpretive Data was last revised on 2018. HDL 37(L) >=40 mg/dL STAN PATINO Comment: Interpretive Data Ages < or = 19 years Acceptable: >45 mg/dL Borderline low: 40-45 mg/dL Low: <40 mg/dL Ages > or = 20 years Desirable: >or= 60 mg/dL Low: <40 mg/dL Literature References: 1. Expert Panel on Integrated Guidelines for Cardiovascular Health and Risk Reduction in Children and Adolescents. Pediatrics 2011;128:S213 2. NCEP Expert Panel. Circulation 2004;110:227 Current Interpretive Data was last revised on 2018. LDL, calculated 92 <=129 mg/dL STAN PATINO Comment: Interpretive Data Ages < or = 19 years Acceptable: <110 mg/dL Borderline high: 110-129 mg/dL High: >or= 130 mg/dL Ages > or = 20 years Optimal: <100 mg/dL Near optimal: 100-129 mg/dL Borderline high: 130-159 mg/dL High: >160 mg/dL Literature References: 1. Expert Panel on Integrated Guidelines for Cardiovascular Health and Risk Reduction in Children and Adolescents. Pediatrics 2011;128:S213 2. NCEP Expert Panel. Circulation 2004;110:227 Current Interpretive Data was last revised on 2018. Non-HDL Cholesterol 127 mg/dL STAN PATINO Comment: Interpretive Data Ages < or = 19 years Acceptable: <120 mg/dL Borderline high: 120-144 mg/dL High: >145 mg/dL Ages > or = 20 years When triglycerides are >200 mg/dL, Non-HDL cholesterol is a secondary target of therapy with treatment goals that are 30 mg/dL greater than the LDL cholesterol target. Literature References: 1. Expert Panel on Integrated Guidelines for Cardiovascular Health and Risk Reduction in Children and Adolescents. Pediatrics 2011;128:S213 2. NCEP Expert Panel. Circulation 2004;110:227 Current Interpretive Data was last revised on 2018. Chol/HDL ratio 4 CERNER Blood 01/12/2024 4:48 AM CDT 01/12/2024 6:53 AM CDT Elliott Helton MD LAB BLOOD ORDERABLES F inal Result STAN [address] [facility] Department [place] [address] * Diabetic Eye Exam (06/23/2023) us Historical Provider HEALTH MAINTENANCE Final Result * COLONOSCOPY (09/25/2022 8:52 AM CDT) Anatomical Region Laterality Modality Other Narrative Procedure Note Deep Dawson MD - 09/25/2022 8:52 AM CDT [facility] Patient Name: Henrique Murray Procedure Date: 09/25/2022 8:52 AM Date of : 1955 Admit Type: Outpatient Age: 67 Gender: Male Attending MD: Deep Dawson M.D. Room: [facility] ENDOSCOPY ROOM 2 Note Status: Finalized Patient Profile: Refer to note in patient chart for documentation of history and physical. Procedure: Colonoscopy Indications: Screening for colorectal malignant neoplasm, Last colonoscopy: 2015 Referring MD: Dimitri Keith M.D. Providers: Deep Dawson M.D. Impression: - Hemorrhoids found on perianal exam. - Diverticulosis in the sigmoid colon. - The examination was otherwise normal. - No specimens collected. Recommendation: - Discharge patient to home. - Resume previous diet. - Continue present medications. - Repeat colonoscopy in 10 years for screening purposes. - Return to primary care physician as previously scheduled. Medicines: Propofol per Anesthesia Complications: No immediate complications. Estimated Blood Loss: Estimated blood loss: none. Procedure: Pre-Anesthesia Assessment: - This assessment was completed [Time ofAssessment] prior to the administration of sedation. The benefits, risks and alternatives of theprocedure and sedation were discussed and informed consentwas obtained. All questions were answered. Please referto the signed informed consent document in the medical record. The bowel preparation used was Miralax via split dose instruction. The bowel preparation usedwas bisacodyl tablets via split dose instruction. The scope was passed under direct vision. TheColonoscope [id number] was introduced through the anus and advanced to the the cecum, identified by appendiceal orifice and ileocecal valve. The colonoscopy was performed without difficulty. The patient tolerated the procedure well. The qualityof the bowel preparation was adequate to identifypolyps 6 mm and larger in size. The ileocecal valve, appendiceal orifice, and rectum werephotographed. Findings: Hemorrhoids were found on perianal exam. Multiple small and large-mouthed diverticula were found in thesigmoid colon. The exam was otherwise without abnormality. Electronically signed by Deep Dawson M.D. Deep Dawson M.D. 09/25/2022 9:41:44 AM Number of Addenda: 0 Note Initiated On: 09/25/2022 8:52 AM Procedure Code(s): --- Professional --- G0121, Colorectal cancer screening; colonoscopy on individual not meeting criteria for high risk --- Technical --- G0121, Colorectal cancer screening; colonoscopy on individual not meeting criteria for high risk Diagnosis Code(s): --- Professional --- K57.30, Diverticulosis of large intestine without perforation orabscess without bleeding K64.9, Unspecified hemorrhoids Z12.11, Encounter for screening for malignant neoplasm of colon --- Technical --- K57.30, Diverticulosis of large intestine without perforation orabscess without bleeding K64.9, Unspecified hemorrhoids Z12.11, Encounter for screening for malignant neoplasm of colon CPT copyright 2020 [employer]. All rights reserved. The codes documented in this report are preliminary and upon manufacturing engineering intern reviewmay be revised to meet current compliance requirements. Recognized by the [employer] for promoting quality in endoscopy Deep Dawson MD ENDOSCOPY PROCEDURES Final Re sult * CT Chest Abdomen Pelvis W Contrast (08/29/2019 5:21 PM CDT) Anatomical Region Laterality Modality Body N/A Computed Tomogra phy 08/29/2019 5:04 PM CDT Narrative 08/29/2019 6:23 PM CDT [facility] Imaging Result Name: HENRIQUE MURRAY Ordering Phys: CALEB JOHANNA Age: 64 Date of : 1955 Accession Number: [id number] Date of Service: 08/29/2019 Gender: M EXAM DESCRIPTION: CT CHEST ABDOMEN PELVIS W CONTRAST REASON FOR STUDY: Fell off ladder today approx 8 foot, right sided abd pain. Pain with deep inspirationDuration: today TECHNIQUE: CT scan of the chest, abdomen, and pelvis performed with intravenous and without oral contrast using helical scanning technique with dynamic intravenous contrast injection. Reconstructed coronal and sagittal MPR images reviewed. All images stored on PACS. Automated exposure control was used as a dose optimization technique for this examination. CONTRAST TYPE/DOSE: 100 of optiray 320 injected via rt hand IV COMPARISON: Chest CT 07/04/2015. No comparison abdomen pelvis CT. CHEST LUNGS: No suspicious pulmonary nodule. No consolidation. Trace areas of atelectasis. No pulmonary contusion or pulmonary laceration identified. PLEURA: No effusion. No pneumothorax. MEDIASTINUM/ACOSTA: Small hiatal hernia. Visualized portions of thyroid gland are unremarkable in appearance. No enlarged lymph nodes identified within the imaged supraclavicular regions. No mediastinal or hilar lymphadenopathy. HEART: Postsurgical changes of coronary artery bypass grafting noted. There is calcification of the coronary arteries. Heart size is normal. No pericardial effusion. VASCULATURE CHEST: There is calcified atherosclerosis of the thoracic aorta. No evidence of traumatic aortic injury on this exam. Mild calcified atherosclerosis of the thoracic aorta. Normal caliber main pulmonary artery. AXILLA: No adenopathy. CHEST WALL: Trace bilateral gynecomastia. No chest wall mass identified. HARDWARE/LINES/TUBES: Median sternotomy wires are noted. There is some residual incomplete midline fusion along the manubrium. Sternum appears healed. No compression deformity identified within the thoracic spine. There is multilevel degenerative disc disease with anterior osteophytes MUSCULOSKELETAL CHEST: Acute minimally displaced fracture posterior right 11th rib. Acute nondisplaced fracture posterior right 12th rib. ABDOMEN/PELVIS LIVER: Normal size. No suspicious lesion. No evidence of a traumatic liver injury. GALLBLADDER: There is cholelithiasis without CT evidence of acute cholecystitis. BILE DUCTS: No intrahepatic or extrahepatic ductal dilatation. SPLEEN: Small splenule in the left upper quadrant. No evidence of traumatic splenic injury. PANCREAS: No identified cystic or solid masses. No significant calcifications. No adjacent inflammation or peripancreatic fluid collections. Pancreatic duct not dilated. ADRENALS: Normal. KIDNEYS/URINARY TRACT: Moderate bilateral nonspecific perinephric stranding. No perinephric fluid collection or perinephric hematoma identified. These findings are symmetric. 6 cm left renal hilar cyst versus extrarenal pelvis. No caliectasis or hydroureter. Urinary bladder is decompressed limiting assessment. The prostate is moderately enlarged impressing upon the base of the urinary bladder. GI: Postsurgical changes are noted along the greater curvature of the stomach. Correlate with surgical history. No abnormal bowel wall thickening or evidence of a bowel obstruction. No evidence of pneumatosis. Normal appendix. There is colonic diverticulosis without evidence of acute diverticulitis. No abnormal colonic wall thickening identified. PERITONEUM: No free air identified. No free fluid. No lymphadenopathy. No mesenteric hematoma identified. No evidence of active vascular extravasation. RETROPERITONEUM: No mass or adenopathy. VASCULATURE ABDOMEN: No abdominal aortic aneurysm. There is calcified atherosclerosis of the abdominal aorta and common iliac arteries. No evidence of a traumatic vascular injury. MUSCULOSKELETAL ABDOMEN PELVIS: There is facet osteoarthritis in the lower lumbar spine with multilevel degenerative disc disease. No sacroiliac joint widening. No fracture identified within the lumbar spine. Small amount of subcutaneous swelling/stranding lateral to the right hip. Small linear lucency along the posterior right acetabulum is age indeterminate. Portions of this appear well corticated while the coronal images this is not definitely corticated along the medial margin as seen on image 70. The surrounding fascial planes do not demonstrate stranding or hematoma. There is bilateral at least mild hip osteoarthritis. IMPRESSION: 1. Minimally displaced acute fracture posterior right 11th rib. Nondisplaced acute fracture posterior right 12th rib. 2. Subtle linear lucency lateral aspect of the posterior right acetabulum, possible age-indeterminate nondisplaced fracture. This could be related to prior trauma. Please correlate with patient symptoms/point tenderness. If acute trauma clinically suspected or patient is symptomatic in this location, MRI is an option to further assess. 3. Left renal hilar cyst versus peripelvic cyst. This measures 6 cm. Nonspecific low-density perinephric stranding without perinephric hematoma identified. 4. Cholelithiasis. 5. Colonic diverticulosis without evidence of acute diverticulitis. 6. Moderate enlargement of the prostate gland. Correlate with PSA. 7. Small hiatal hernia. These findings were discussed with Dr. Caleb Herman by Dr. Abreu At 6:16 pm central standard time on 08/29/2019. THIS IS AN ELECTRONICALLY VERIFIED FINAL REPORT 08/29/2019 6:19 PM - Electronically signed by Shane Abreu : Report ID: [id number] Reading Location: [id number] Procedure Note Shane Abreu MD - 08/29/2019 [facility] Imaging Result Name: HENRIQUE MURRAY Ordering Phys: CALEB HERMAN Age: 64 Date of : 1955 Accession Number: [id number] Date of Service: 08/29/2019 Gender: M EXAM DESCRIPTION: CT CHEST ABDOMEN PELVIS W CONTRAST REASON FOR STUDY: Fell off ladder today approx 8 foot, right sided abdpain. Pain with deep inspirationDuration: today TECHNIQUE: CT scan of the chest, abdomen, and pelvis performed with intravenous and without oral contrast using helical scanning techniquewith dynamic intravenous contrast injection. Reconstructed coronal and sagittalMPR images reviewed. All images stored on PACS. Automated exposure control was used as a dose optimization technique forthis examination. CONTRAST TYPE/DOSE: 100 of optiray 320 injected via rt hand IV COMPARISON: Chest CT 07/04/2015. No comparison abdomen pelvis CT. CHEST LUNGS: No suspicious pulmonary nodule. No consolidation. Trace areasof atelectasis. No pulmonary contusion or pulmonary laceration identified. PLEURA: No effusion. No pneumothorax. MEDIASTINUM/ACOSTA: Small hiatal hernia. Visualized portions of thyroidgland are unremarkable in appearance. No enlarged lymph nodes identified withinthe imaged supraclavicular regions. No mediastinal or hilarlymphadenopathy. HEART: Postsurgical changes of coronary artery bypass grafting noted.There is calcification of the coronary arteries. Heart size is normal. No pericardial effusion. VASCULATURE CHEST: There is calcified atherosclerosis of the thoracicaorta. No evidence of traumatic aortic injury on this exam. Mild calcified atherosclerosis of the thoracic aorta. Normal caliber main pulmonaryartery. AXILLA: No adenopathy. CHEST WALL: Trace bilateral gynecomastia. No chest wall massidentified. HARDWARE/LINES/TUBES: Median sternotomy wires are noted. There is some residual incomplete midline fusion along the manubrium. Sternum appears healed. No compression deformity identified within the thoracic spine. There is multilevel degenerative disc disease with anterior osteophytes MUSCULOSKELETAL CHEST: Acute minimally displaced fracture posterior [id number] rib. Acute nondisplaced fracture posterior right 12th rib. ABDOMEN/PELVIS LIVER: Normal size. No suspicious lesion. No evidence of a traumaticliver injury. GALLBLADDER: There is cholelithiasis without CT evidence of acute cholecystitis. BILE DUCTS: No intrahepatic or extrahepatic ductal dilatation. SPLEEN: Small splenule in the left upper quadrant. No evidence oftraumatic splenic injury. PANCREAS: No identified cystic or solid masses. No significantcalcifications. No adjacent inflammation or peripancreatic fluid collections. Pancreaticduct not dilated. ADRENALS: Normal. KIDNEYS/URINARY TRACT: Moderate bilateral nonspecific perinephricstranding. No perinephric fluid collection or perinephric hematoma identified.These findings are symmetric. 6 cm left renal hilar cyst versus extrarenalpelvis. No caliectasis or hydroureter. Urinary bladder is decompressed limiting assessment. The prostate is moderately enlarged impressing upon the baseof the urinary bladder. GI: Postsurgical changes are noted along the greater curvature of thestomach. Correlate with surgical history. No abnormal bowel wall thickening or evidence of a bowel obstruction. No evidence of pneumatosis. Normal appendix. There is colonic diverticulosis without evidence of acute diverticulitis. No abnormal colonic wall thickening identified. PERITONEUM: No free air identified. No free fluid. No lymphadenopathy.No mesenteric hematoma identified. No evidence of active vascularextravasation. RETROPERITONEUM: No mass or adenopathy. VASCULATURE ABDOMEN: No abdominal aortic aneurysm. There is calcified atherosclerosis of the abdominal aorta and common iliac arteries. Noevidence of a traumatic vascular injury. MUSCULOSKELETAL ABDOMEN PELVIS: There is facet osteoarthritis in thelower lumbar spine with multilevel degenerative disc disease. No sacroiliacjoint widening. No fracture identified within the lumbar spine. Small amountof subcutaneous swelling/stranding lateral to the right hip. Small linear lucency along the posterior right acetabulum is age indeterminate.Portions of this appear well corticated while the coronal images this is notdefinitely corticated along the medial margin as seen on image 70. The surrounding fascial planes do not demonstrate stranding or hematoma. There isbilateral at least mild hip osteoarthritis. IMPRESSION: 1. Minimally displaced acute fracture posterior right 11th rib.Nondisplaced acute fracture posterior right 12th rib. 2. Subtle linear lucency lateral aspect of the posterior rightacetabulum, possible age-indeterminate nondisplaced fracture. This could be relatedto prior trauma. Please correlate with patient symptoms/point tenderness.If acute trauma clinically suspected or patient is symptomatic in thislocation, MRI is an option to further assess. 3. Left renal hilar cyst versus peripelvic cyst. This measures 6 cm. Nonspecific low-density perinephric stranding without perinephrichematoma identified. 4. Cholelithiasis. 5. Colonic diverticulosis without evidence of acute diverticulitis. 6. Moderate enlargement of the prostate gland. Correlate with PSA. 7. Small hiatal hernia. These findings were discussed with Dr. Caleb Herman by Dr. Abreu At6:16 pm central standard time on 08/29/2019. THIS IS AN ELECTRONICALLY VERIFIED FINAL REPORT 08/29/2019 6:19 PM - Electronically signed by Shane Abreu : Report ID: [id number] Reading Location: [id number] Caleb Herman MD IMG CT PROCEDURES Final Result from Last 3 Months or Most Recently Relevant to Health Maintenance Insurance [facility] Member Subscriber Plan / Payer (Ef fective 2022-Present) Name:Henrique Murray Relation to Subscriber:Self Name:Henrique Murray Payer ID:[id number] (NAIC) Type:MEDICARE RISK OTHER Address: [address] [facility] Advance Directives For more information, please contact: [phone] * Full Code (Latest Code Status on File) Date Activated Date Inactivated Comments 01/12/2024 1:23 AM 01/14/2024 7:31 PM * Full Code Date Activated Date Inactivated Comments 08/10/2023 5:53 PM 08/11/2023 5:20 PM * Full Code Date Activated Date Inactivated Comments 09/25/2022 8:52 AM 09/25/2022 2:25 PM * Full Code Date Activated Date Inactivated Comments 09/25/2022 8:52 AM 09/25/2022 8:52 AM * Full Code Date Activated Date Inactivated Comments 05/11/2017 5:03 PM 05/13/2017 8:01 PM Care Teams [employer] Relationship Specialty Start Date End Date Dimitri Keith MD PCP - General Family Practice 04/28/21 Caleb Mazariegos NP [address] [place] [address] [place] [address] Nurse Practitioner Orthopedic Surgery 08/11/23 Antwan Monroy MD [address] [place] [address] Consulting Physician Cardiology 01/14/24
--- OUTSIDE RECORDS SUMMARY | 2024-09-07 11:16 | XMS_ITS | Referral Summary ---
Author Organization [facility] Medical Office Building B Address [address] [place] [address] Care Team Providers Care Call Center Analyst Name Role Phone Dimitri Keith MD Primary Care Provider [phone] Caleb Mazariegos NP Unavailable [phone] Antwan Monroy MD Unavailable [phone] Encounters Date Type Department Care Team Description 08/16/2024 7:52 AM CDT - 08/16/2024 11:59 PM CDT Hospital Encounter [facility] Medical [facility] Orthopedics and Sports Medicine [address] [place] [address] [address], [place] [address] Discharge Disposition: Discharge to home or self care 08/16/2024 8:30 AM CDT Office Visit [facility] Orthopedics and Sports Medicine [address] [place] [address] [address], [place] [id number] Sukhjinder Kaufman PA Osteoarthritis of bilateral glenohumeral joints (Primary Dx); Osteoarthritis of AC (acromioclavicular) joints, bilateral 08/14/2024 Telephone [facility] Orthopedics and Sports Medicine [address] [place] [address] [address], [place] [address] Kenyon Ayon MD 06/20/2024 10:30 AM KILN CHARGER Office Visit [facility] Medical [facility] Diabetes Endocrine Care at [address] [place] [address] Oren Peguero, Type 2 diabetes mellitus with other specified complication, without long-term current use of insulin (HCC) (Primary Dx); Hypertension associated with diabetes (HCC); Hyperlipidemia associated with type 2 diabetes mellitus (HCC) from Last 3 Months Allergies No known active allergies Medications omeprazole [...] 04/28/2021 Assessment & Plan (04/28/2021 8:47 AM KILN CHARGER): Avoid ear cleaning techniques Avoid water to ears Continue Hearing aids Sensorineural hearing loss (SNHL) of both ears 1 06/29/2020 Assessment & Plan (04/28/2021 8:47 AM KILN CHARGER): Continue Hearing aids 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 2vd in 2000 on cath at [facility]. Normal stress echo 2009 CABG 03/2015 - scanned report in chart [facility]ORD[facility] to [facility] 11/11/2015 Hyperlipemia 01/19/2008 Testicular hypogonadism 01/19/2008 Social History Tobacco Use Types Packs/Day Years Used Date Smoking Tobacco: Former Cigarettes Q uit: 1967 Smokeless Tobacco: Never Tobacco Cessation:Counseling Given: Not Answered Alcohol Use Standard Drinks/Week Comments Yes 0 (1 standard drink = 0.6 oz pur e alcohol) OCCASIONAL C Utilities Answer Date Recorded In the past 12 months has [employer], gas, oil, or water [employer] threatened to shut off services in your [...] 01/13/2024 How often do you attend chur or adventism services? More than 4 times per year 01/13/2024 Do you belong to any clubs o r organizations such as voodoo groups, unions, fraternal or athletic groups, or [...] any time in the past 12 m [facility], were you homeless or living in a [place] health care facility (including now)? No 01/13/2024 Personal Safety Answer Date Recorded Have you ever been in or are you currently in a harmful physical or emotional relationship or is someone making you feel afraid or unsafe? Denies 01/11/2024 Sex and Gender Information Value Date Recorded Sex Assigned at Not on file Legal Sex Male 4:37 PM KILN CHARGER Gender Identity Not on file Sexual Orientation Straight 04/21/2021 7: 57 AM KILN CHARGER Last Filed Vital Signs Vital Sign Reading [...] 08/16/2024 8:34 AM CDT Plan of Treatment Not on file Medical Devices Implanted Type Area [facility] Worker Device Identifier Shelf Expiration Date Model / Serial / Lot Cement Bone Smartset Gentamicin 40 Gm High Viscosity - [id number] Implanted:Qty: 1 on 05/11/2017 by Kenyon Ayon MD at [facility] Left: Knee [employer] 09/20/2018 [id number] / / [id number] Cement Bone Smartset Gentamicin 40 Gm High Viscosity - [id number] Implanted:Qty: 1 on 05/11/2017 by Kenyon Ayon MD at [facility] Left: Knee [employer] 10/21/2018 [id number] / / [id number] Stem Femoral Attune L50 Mm Od14 Mm Knee Cemented Revision Sterile - [id number] Implanted:Qty: 1 on 05/11/2017 by Kenyon Ayon MD at [facility] Left: Knee [employer] 03/23/2027 [id number] / / [id number] Bsplt Tibial Attune 7 Rev Cmnt Fix Brng Strl Knee System - [id number] Implanted:Qty: 1 on 05/11/2017 by Kenyon Ayon MD at [facility] Left: Knee [employer] 11/20/2026 [id number] / / [id number] Component Femoral Attune 7 Knee Left Cemented Posterior Stabilize Sterile - [id number] Implanted:Qty: 1 on 05/11/2017 by Kenyon Ayon MD at [facility] Left: Knee [employer] 01/21/2027 [id number] / / [id number] Dome Patellar Attune Aox H41 Mm Knee Cemented Medialize Sterile - [id number] Implanted:Qty: 1 on 05/11/2017 by Kenyon Ayon MD at [facility] Left: Knee [employer] 01/21/2022 [id number] / / [id number] Insert Tibial Attune Aox 7 H6 Mm Knee Posterior Stabilize Fix Bearing Sterile - [id number] Implanted:Qty: 1 on 05/11/2017 by Kenyon Ayon MD at [facility] Left: Knee [employer] 01/21/2022 [id number] / / [id number] [employer] Attune Fb Tib Base Sz 7 Por [id number] - [id number] Implanted:Qty: 1 on 08/10/2023 by Kenyon Ayon MD at [facility] Right: Knee [employer] [id number] 06/23/2033 [id number] / / [id number] [employer] Attune Cruciate Retain Cementless Knee Right 7 Component Femoral [id number] - [id number] Implanted:Qty: 1 on 08/10/2023 by Kenyon Ayon MD at [facility] Right: Knee [employer] [id number] 06/23/2033 [id number] / / [id number] [employer] Insert Tibial Knee Fixed Rm Posterior Stabilized Attune 6mm Size 7 Polyethylene [id number] - [id number] Implanted:Qty: 1 on 08/10/2023 by Kenyon Ayon MD at [facility] Right: Knee [employer] [id number] 12/21/2030 [id number] / / [id number] Med[employer]onic Card Vasc Surgery 2.50 X 15mm [place] Rx Coronary Stent [id number] - [id number] Implanted:Qty: 1 on 01/13/2024 by Liam Mack MD at [facility] [employer] Card Vasc Surgery 10/07/2026 [id number] / / [id number] Procedures Procedure Name Priority Date/Time Associated Diagnosis Comments FL ARTHROCENTESIS ASPIR&/INJ MAJOR JT/BURSA W/O US Routine 08/16/2024 8:30 AM CDT 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, bilateral XR SHOULDER BILATERAL 2+ VIEWS Routine 08/16/2024 8:26 AM CDT Osteoarthritis of bilateral glenohumeral joints POCT HEMOGLOBIN A1C Routine 06/20/2024 1 0:30 AM KILN CHARGER Type 2 diabetes mellitus with other specified complication, without long-term current use of insulin (HCC) EGFR Routine 05/09/2024 10:40 AM KILN CHARGER ALBUMIN CREATININE RATIO, URINE Routine 05/09/2024 10:40 AM KILN CHARGER LIPID PANEL Routine 01/12/2024 4:48 AM CDT DIABETIC EYE EXAM Routine 06/23/2023 COLONOSCOPY 09/25/2022 8:[address] CHEST ABDOMEN PELVIS W CONTRAST ED 08/29/2019 5:21 PM CDT from Last 3 Months or Most Recently Relevant to Health Maintenance Results * FL ARTHROCENTESIS ASPIR&/INJ MAJOR JT/BURSA W/O US (08/16/2024 [...] changes noted at bilateral glenohumeral joints with byse-xm-zauq changes, subchondral sclerosis, osteophyte formation. Sukhjinder ESCOBAR IMG XR PROCEDURES Gertrude l Result * POCT hemoglobin A1c (06/20/2024 10:30 AM KILN CHARGER) Hemoglobin A1C, POC 6.9 4.0 - 5.6 % Blood 06/20/2024 10:3 0 AM KILN CHARGER Oren Peguero DO POINT OF CARE TEST ORDERABL ES Final Result * (ABNORMAL) eGFR (05/09/2024 10:40 AM KILN CHARGER) eGFR 53(L) >=60 mL/min/1. 73 m2 Comment: [...] reviewed 2021. Blood 05/09/2024 10:4 0 AM KILN CHARGER 05/09/2024 9:03 PM KILN CHARGER Antwan Monroy MD LAB BLOOD ORDERABLES Final Resu lt Performing Organization Address [facility] de Phone Number [facility] [address] [place] [address] * (ABNORMAL) Albumin Creatinine Ratio, Urine (05/09/2024 10:40 AM KILN CHARGER) Albumin Ur 130.3 mg/L Comment: Interpretive Data No reference range established. Current interpretive data was last revised 2018. Creatinine Ur 108.3 mg/dL [facility] Comment: Interpretive Data No reference range established. Current interpretive data was last revised 2018. Albumin Creatinine Ratio, Ur 120(H) 1 - 29 mg/g [facility] Urine 05/09/2024 10:4 0 AM KILN CHARGER 05/09/2024 8:58 PM KILN CHARGER Antwan Monroy MD LAB URINE ORDERABLES Final Resu lt Performing Organization Address [facility] de Phone Number [facility] [address] [address] [facility] [place] [address] * (ABNORMAL) Lipid panel (01/12/2024 4:48 AM [...] 2018. LDL, calculated 92 <=129 mg/dL [facility] Comment: Interpretive Data Ages < or = [...] last revised on 2018. Chol/HDL ratio 4 [facility] PATINO Blood 01/12/2024 4:48 AM CDT 01/12/2024 6:53 AM CDT Elliott Helton MD LAB BLOOD ORDERABLES F inal Result [facility] [address] [place] [address] * Diabetic Eye Exam (06/23/2023) Historical Provider HEALTH MAINTENANCE Final Result * COLONOSCOPY (09/25/2022 8:52 AM CDT) Anatomical Region Laterality Modality Other Narrative Procedure Note Deep Dawson MD - 09/25/2022 8:52 AM CDT [facility] Patient Name: Henrique Murray Procedure Date: 09/25/2022 8:52 AM Date of : 1955 Admit Type: Outpatient Age: 67 Gender: Male Attending MD: Deep Dawson M.D. Room: [facility] ENDOSCOPY ROOM 2 Note Status: Finalized Patient [...] scope was passed under direct vision. TheColonoscope [id number] was introduced through the anus and advanced [...] malignant neoplasm of colon CPT copyright 2020 [employer]. All rights reserved. The codes documented in this report are preliminary and upon certified medical coder reviewmay be revised to meet current compliance requirements. Recognized by the [employer] for promoting quality in endoscopy Deep Dawson MD ENDOSCOPY PROCEDURES Final Re sult * CT Chest Abdomen Pelvis W Contrast (08/29/2019 5:21 PM CDT) Anatomical Region Laterality Modality Body N/A Computed Tomogra phy 08/29/2019 5:04 PM CDT Narrative 08/29/2019 6:23 PM CDT [facility] Imaging Result Name: HENRIQUE MURRAY Ordering Phys: CALEB HERMAN Age: 64 Date of : 1955 Accession Number: [id number] Date of Service: 08/29/2019 Gender: M EXAM [...] signed by Shane Abreu : Report ID: [id number] Reading Location: [id number] Procedure Note Shane Abreu MD - 08/29/2019 [facility] Imaging Result Name: HENRIQUE MURRAY Ordering Phys: CALEB HERMAN Age: 64 Date of : 1955 Accession Number: [id number] Date of Service: 08/29/2019 Gender: M EXAM [...] MUSCULOSKELETAL CHEST: Acute minimally displaced fracture posterior [id number] rib. Acute nondisplaced fracture posterior right 12th [...] signed by Shane Abreu : Report ID: [id number] Reading Location: [place] [address] Caleb Herman MD IMG CT PROCEDURES Final Result from Last 3 Months or Most Recently Relevant to Health Maintenance Insurance [facility] Advance Directives For more information, please contact: [phone] * Full Code (Latest Code Status on [...] 5:03 PM 05/13/2017 8:01 PM Care Teams Call Center Analyst Relationship Specialty Start Date End Date Dimitri Keith MD PCP - General Family Practice 04/28/21 Caleb Mazariegos NP [address] [place] [address] [place] [address] Nurse Practitioner Orthopedic Surgery 08/11/23 Antwan Monroy MD [address] [place] [address] Consulting Physician Cardiology 01/14/24
--- OUTSIDE RECORDS SUMMARY | 2024-09-07 11:16 | XMS_ITS | CONTINUITY OF CARE DOCUMENT ---
Author Name jacqueline, jacqueline Address Unknown Organization [facility] Address [address] [facility] [address] [place] [address] Phone [phone] Care Team Providers Care Waste Minimization Technician Name Role Phone Eliana JEFFERSON, Doyle Unavailable Doyle Monroy MD Unavailable MONICA CAREY MD Unavailable [phone] PROBLEMS Condition Status Date Provider Notes Hypertriglyceridemia active Doyle Santos Tobacco use, quit active Doyle Monroy MD t oo remote to screen Aortic atherosclerosis active Doyle Monroy MD CAD active Doyle Monroy MD CAROTID PLAQUING, coudlnot affr x 2.5, p et neg 25 CABG active Doyle Monroy MD ori, one vein, free radial off vein 2014 Vitamin D deficiency active Doyle Santos Angina pectoris completed - Doyle Monroy MD COPD;MILD active Doyle Monroy MD Myocardial infarction;SEEN O N NUC 19 active Doyle Monroy MD Elevated LFT's and gs active Doyle Monroy MD Pulmonary hypertension active Doyle Monroy MD Tricuspid regurgitation, mild active Doyle Monroy MD Memory impairment active Doyle Monroy MD n eg b12 Enlarged prostate active Doyle Monroy MD Renal cyst active Doyle Monroy MD Hiatal hernia active Doyle Monroy MD Diverticulosis, colon active Doyle Monroy MD Gallstones completed - Doyle Monroy MD covid 19;2020;HAD VACCINE active Doyle kelly MD ARTHRITIS active Doyle Monroy MD Renal disease, chronic, mild active Doyle Monroy MD Microalbuminuria active Doyle Monroy MD HYPOGONADISM active Doyle Monroy MD Erectile dysfunction active Doyle Santos IRON DEFICIENCY;anemai active Doyle Monroy MD nml FOLAte and b12 Screening active Doyle Monroy MD Tachy waldo syndrome with AFIB ;nml tsh active Doyle Monroy MD Diastolic CHF active Doyle Monroy MD canno tg aford entresto Carotid artery disease completed 9 - Doyle Monroy MD Pericardial effusion;RESPLVE D 19 active Doyle Monroy MD NML TSH SLEEP APNEA; active Doyle Monroy MD ObesityLHAD SLEAVE active Doyle Monroy MD FAMILY HISTORY OF HEART DISEASE active Doyle Monroy MD Hyperlipidemia;lpa 193 and nml crp active Doyle Monroy MD Anxiety disorder active Doyle Monroy MD HTN essential active Doyle Monroy MD Diabetes mellitus active Doyle AVERY Family History of Hypertension: completed - Doyle Monroy MD ENCOUNTERS Date Type Provider Location Encounter Diag nosis - In-person encounter Office Visit Doyle [facility] MD [facility] Diabetes mellitusDiastolic CHFIRON DEFICIENCY;anemaiMicroalbumin uriaRenal disease, chronic, mildMemory impairmentTricuspid regurgitation, mildPulmonary hypertension - In-person encounter Office Visit Doyle Monroy MD [facility] Tachy waldo syndrome with AFIB ;nml tshGallstonesElevated LFT's and gs - In-person encounter Office Visit Doyle Monroy MD [facility] - In-person encounter Office Visit Doyle Monroy MD [facility] - In-person encounter Office Visit Doyle Monroy MD [facility] Diastolic CHF - In-person encounter Office Visit Doyle Monroy MD [facility] CADDiabetes mellitusDiastolic CHF - In-person encounter Office Visit Doyle Monroy MD [facility] - In-person encounter Office Visit Doyle Monroy MD [facility] CADcovid ;HAD VACCINEDiverticulosis, colonHiatal herniaRenal cystEnlarged prostate - In-person encounter Office Visit Doyle Monroy MD [facility] - In-person encounter Office Visit Doyle Monroy MD [facility] covid ;HAD VACCINE - In-person encounter Office Visit Doyle Monroy MD [facility] Pericardial effusion;RESPLVED 19Renal disease, chronic, mildCOPD;MILDARTHRITISMyocard ial infarction;SEEN ON NUC 19 - In-person encounter Office Visit Doyle Monroy MD [facility] Tachy waldo syndrome with AFIB ;nml tshIRON DEFICIENCY;anemai - In-person encounter Office Visit Doyle Monroy MD [facility] CADFamily History of Hypertension:ObesityLHAD SLEAVEPericardial effusion;RESPLVED 19Carotid artery diseaseDiastolic CHFAngina pectorisTachy waldo syndrome with AFIB ;nml tshScreeningIRON DEFICIENCY;anemaiErectile dysfunctionHYPOGONADISM - In-person encounter Office Visit Doyle Monroy MD [facility] Pericardial effusion;RESPLVED 19Vitamin D deficiencyDiastolic CHF - In-person encounter Office Visit Doyle Monroy MD [facility] Diabetes mellitusHTN essentialAnxiety disorderHyperlipidemia;lpa 193 and nml crpFAMILY HISTORY OF HEART DISEASECABGObesityLHAD SLEAVESLEEP APNEA; VITAL SIGNS Date Observation Value Provider Body Mass Index (Ratio) 32.57 kg/m2 Terry Monroy MD blood pressure, diastolic 69 mm[Hg] Ky khalida Tam blood pressure, systolic 133 mm[Hg] Kyl ia Tam respiratory rate E&M 12 /min K[facility]ia [facility] pulse rate 81 /min Kylia Tam oxygen saturation, oximetry 95 % Kya Tam weight E&M 220.6 [lb_av] Kylia Tam blood pressure, cuff size regular Ky khalida Tam height E&M 69 [in_i] Kylia Tam Body Mass Index (Ratio) 32.07 kg/m2 Terry Monroy MD blood pressure, diastolic 96 mm[Hg] Ky khalida Tam blood pressure, systolic 180 mm[Hg] Kyl ia Tam oxygen saturation, oximetry 100 % Kylia Tam pulse rate 68 /min Kylia Tam respiratory rate E&M 14 /min Kylia G raham weight E&M 217.2 [lb_av] Kylia Tam blood pressure, cuff size regular Ky khalida Tam height E&M 69 [in_i] Kylia Tam Body Mass Index (Ratio) 33.08 kg/m2 Terry Monroy MD blood pressure, diastolic 82 mm[Hg] Ka yla Ruple blood pressure, systolic 161 mm[Hg] Mecca la Ruанна oxygen saturation, oximetry 98 % [facility] 72 /min Rayne Ruанна weight E&M 224 [lb_av] [facility] height E&M 69 [in_i] [facility] Body Mass Index (Ratio) 33.22 kg/m2 Terry Monroy MD blood pressure, cuff size regular Ta bitrosibel [place] blood pressure, diastolic 82 mm[Hg] Ta bitha [place] blood pressure, systolic 130 mm[Hg] Tab itha [place] pulse rate 95 /min Melba [place] oxygen saturation, oximetry 98 % Melba Jordan weight E&M 225 [lb_av] Melba Jordan respiratory rate E&M 12 /min Melba Jordan height E&M 69 [in_i] Melba [place] Body Mass Index (Ratio) 33.52 kg/m2 Terry Monroy MD blood pressure, cuff size regular Ke rri Yoavuenenfeldjose martin blood pressure, diastolic 90 mm[Hg] Ke rri Gruenenfeld blood pressure, systolic 140 mm[Hg] Ker ri Yoavuenenfeldjose martin oxygen saturation, oximetry 96 % Ange Shardanenfleo respiratory rate E&M 12 /min Ange G ruenenfelder pulse rate 75 /min Ange Gruenenfe lder weight E&M 227 [lb_av] Ange Gruenenfe lder height E&M 69 [in_i] Ange Gruenenfe ld Body Mass Index (Ratio) 35.29 kg/m2 Terry Mnoroy MD pulse rate 56 /min Elena Mina blood pressure, diastolic 108 mm[Hg] An perfecto Enriquez blood pressure, systolic 199 mm[Hg] Any a oxygen saturation, oximetry 97 % Elena weight E&M 239 [lb_av] Elena blood pressure, cuff size large An perfecto height E&M 69 [in_i] Elena Body Mass Index (Ratio) 33.96 kg/m2 Terry Monroy MD blood pressure, diastolic 104 mm[Hg] Eloisa grove blood pressure, systolic 174 mm[Hg] Any a oxygen saturation, oximetry 97 % Elena pulse rate 79 /min Elena weight E&M 230 [lb_av] Elena blood pressure, cuff size large An perfecto height E&M 69 [in_i] Elena Mina Body Mass Index (Ratio) 34.11 kg/m2 Terry Monroy MD blood pressure, diastolic 85 mm[Hg] Li nkLogfatmata blood pressure, systolic 156 mm[Hg] Krystina kLogfatmata blood pressure, diastolic 85 mm[Hg] Sara maximino Lim blood pressure, systolic 156 mm[Hg] Ed shekhar Lim blood pressure, cuff size large Sara Lim oxygen saturation, oximetry 97 % Shannan Lim pulse rate 66 /min Shannan santos weight E&M 231 [lb_av] Shannan santos respiratory rate E&M 16 /min Maggie Lim height E&M 69 [in_i] Shannan santos Body Mass Index (Ratio) 33.96 kg/m2 Terry Monroy MD blood pressure, cuff size large Adam Swanson blood pressure, diastolic 80 mm[Hg] Adam Swanson blood pressure, systolic 140 mm[Hg] Try dungt Sky oxygen saturation, oximetry 97 % Jose Swanson respiratory rate E&M 18 /min Trykarthik Swanson pulse rate 64 /min Trykarthik Swanson weight E&M 230 [lb_av] Trykarthik Swanson height E&M 69 [in_i] Jose Swanson Body Mass Index (Ratio) 32.63 kg/m2 Terry Monroy MD pulse rate 80 /min [facility] blood pressure, diastolic 80 mm[Hg] Br ittany Block blood pressure, systolic 136 mm[Hg] Jeny ttany [facility] oxygen saturation, oximetry 98 % [facility] weight E&M 221 [lb_av] [facility] blood pressure, resting Yes [facility] respiratory rate E&M 16 /min [facility] height E&M 69 [in_i] [facility] Body Mass Index (Ratio) 33.08 kg/m2 Terry Monroy MD pulse rate 73 /min Betsy motta oxygen saturation, oximetry 98 % Betsy [place] respiratory rate E&M 16 /min Betsy [place] blood pressure, cuff size regular Cy gabino [place] blood pressure, diastolic 70 mm[Hg] Cy gabino [place] blood pressure, systolic 122 mm[Hg] Nazia martínez [place] weight E&M 224 [lb_av] Betsy Campbel l height E&M 69 [in_i] Betsy Campbel l Body Mass Index (Ratio) 34.70 kg/m2 Terry Monroy MD blood pressure, diastolic 70 mm[Hg] Ki lupe Dillon blood pressure, systolic 110 mm[Hg] Jose Dillon oxygen saturation, oximetry 98 % Livia Dillon respiratory rate E&M 16 /min [place] pulse rate 78 /min Livia weight E&M 235 [lb_av] [place] height E&M 69 [in_i] Livia Dillon Body Mass Index (Ratio) 35.29 kg/m2 Terry Monroy MD blood pressure, diastolic 68 mm[Hg] Er ica CarreonMeredith blood pressure, systolic 120 mm[Hg] Ana Maria ehsan Valorie blood pressure, resting Yes Dillon thibodeaux Valorie oxygen saturation, oximetry 99 % Cary Valorie pulse rate 59 /min Cary Danny Flores weight E&M 239 [lb_av] Cary CarreonShade Flores height E&M 69 [in_i] Cary Danny Flores blood pressure, diastolic 90 mm[Hg] Jose de la torrehenny Hammer blood pressure, systolic 140 mm[Hg] Abril katia Hammer pulse rate 72 /min JoseLuannekatia Hammer oxygen saturation, oximetry 98 % JoseLuannekatia Hammer respiratory rate E&M 18 /min Abrilkatia Hammer Body Mass Index (Ratio) 35.05 kg/m2 Chiara Hammer weight E&M 237.4 [lb_av] JoseLuannekatia Hammer blood pressure, diastolic 86 mm[Hg] Ca sara Luz blood pressure, systolic 146 mm[Hg] Can dace Natty blood pressure, diastolic 88 mm[Hg] Me mark Willie blood pressure, systolic 136 mm[Hg] Mariela kori Willie respiratory rate E&M 16 /min Octavia Willie pulse rate 86 /min Octavia Willie oxygen saturation, oximetry 98 % Octavia Willie Body Mass Index (Ratio) 33.37 kg/m2 Gay Tapia height E&M 69 [in_i] Octavia Tapia weight E&M 226.0 [lb_av] Octavia Tapia ALLERGIES No Known Drug Allergies RESULTS Date Observation Value Provider Reference Range Interpretation Location hepatitis C antibody, serum NON-REAC TIVE [facility] NON-REACTIVE Normal [place] [facility] [place] [address] [facility] [place] [address] Janine Perez MD hepatitis B core antibody, total NON-REAC TIVE [facility] NON-REACTIVE Normal [place] [facility] [place] [address] [address] [facility] [place] [address] Janine Perez MD hepatitis B surface antigen NON-REAC TIVE [facility] NON-REACTIVE Normal [place] [facility] [place] [address] [address] [facility] [address] Janine Perez MD hepatitis B surface antibody NON-REAC TIVE [facility] NON-REACTIVE Normal [place] [facility] [place] [address] [place] [address] Janine Perez MD hepatitis A antibody, total NON-REAC TIVE [facility] NON-REACTIVE Normal [place] [facility] [place] [address] [address] [facility] [address] Janine Perez MD microalbumin/creatin ine ratio, urine 131 ug/mg [facility] 1- High [place] [address] creatinine, random, urine 101.8 mg/dL [place] [address] microalbumin, random, urine 133.6 ug/mL [facility] [address] Estimated Glomerular Filtration Rate (calc) 64 mL/min/{ 1.73_m2} LinkLogic >=60 Normal [place] [address] cholesterol, non-HDL, total 167 mg/dL LinkLogic C, [place] [address] lipoprotein, beta, serum, point, quantitative, calculated 131 mg/dL [facility] <=129 High C, [place] [address] HDL CHOLESTEROL 45 mg/dL [facility]ic >=40 Normal C, [place] [address] triglyceride, serum, fasting 181 mg/dL [facility]ic <=149 High C, [place] [address] cholesterol, serum 212 mg/dL [facility] 30-199 High C, [place] [address] NT-pro BNP 259 LinkLogic <=300 Normal C, [place] [address] calcium, serum 9.8 mg/dL [facility] 8.5-10.3 Normal C, [place] [address] blood glucose, random 150 mg/dL [facility] 70-199 Normal , [place] [address] creatine, serum 1.22 mg/dL [facility] 0.80-1.30 Normal [place] [address] urea nitrogen, blood 25 mg/dL [facility] 6-25 Normal C, [place] [address] anion gap, serum 13 mmol/L [facility] 2-15 Normal C, [place] [address] carbon dioxide, venous blood 26 mmol/L [facility] 22-32 Normal C, [place] [address] chloride, serum 100 mmol/L [facility] 97-110 Normal , [place] [address] potassium, serum 4.7 MMOL/L [facility] 3.3-4.9 Normal C, [place] [address] sodium, serum 139 mmol/L [facility] 135-145 Normal C, [place] [address] international normalized ratio (INR) 1.03 [facility] 0.90-1.20 Normal C, [place] [address] prothrombin time (patient) 11.1 s [facility]Logic 9.7-13.0 Normal C, [place] [address] Absolute Basophils 0.0 K/CUMM [facility]Logic 0.0-0.1 Normal , [place] [address] Absolute Monocytes 0.4 K/CUMM [facility] 0.2-0.8 Normal , [place] [address] Absolute Lymphocytes 1.2 K/CUMM [facility] 0.8-3.3 Normal C, [place] [address] Absolute Neutrophils 2.3 K/CUMM [facility] 1.5-6.5 Normal , [place] [address] nucleated red blood cells as percent of blood leukocytes 0.00 K/CUMM [facility] 0.00-0.01 Normal red blood cell distribution width, size density 44.8 fL [facility] 35.7-48.1 Normal mean corpuscular hemoglobin concentration, RBC 33.4 G/DL [facility] 32.3-35.7 Normal mean corpuscular hemoglobin, RBC 29.9 pg [facility] 27.1-33.3 Normal mean corpuscular volume, RBC 89.5 fL [facility] 81.3-96.4 Normal erythrocyte count, whole blood 4.78 M/CUMM [facility] 4.30-5.80 Normal mean platelet volume 11.2 fL [facility] 9.1-12.3 Normal platelet count 181 10*3/uL [facility] 150-400 Normal hematocrit, blood 42.8 % [facility] 38.9-50.3 Normal hemoglobin, blood 14.3 g/dL [facility] 13.0-17.5 Normal C-reactive protein, by highly sensitive test 1.5 mg/L [facility] Normal NT-pro BNP 453 LinkLogic <125 High microalbumin/creatin ine ratio, urine 121 MCG/MG CREAT [facility] <30 High microalbumin/total urine volume 249 mg/L [facility] Units converted. See lab report for original value. Normal creatinine, random, urine 206 mg/dL [facility]ic 20-320 Normal cholesterol, non-HDL, total 156 MG/DL (CALC) Link[facility]ic <130 High cholesterol/HDL ratio, serum, percent 4.3 (calc) [facility]ic <5.0 Normal LDL cholesterol, serum 127 MG/DL (CALC) LinkLogic High triglyceride, serum, fasting 176 mg/dL [facility] <150 High HDL cholesterol, serum 47 mg/dL LinkLogic > OR = 40 Normal cholesterol, serum 203 mg/dL [facility]ic <200 High calcium, serum 9.3 mg/dL [facility] 8.6-10.3 Normal carbon dioxide, venous blood 28 mmol/L [facility] 20-32 Normal chloride, serum 101 mmol/L [facility] 98-110 Normal potassium, serum 4.4 mmol/L [facility] 3.5-5.3 Normal sodium, serum 140 mmol/L [facility] 135-146 Normal urea nitrogen/creatinine ratio, serum SEE NOTE: (calc) LinkLogic 6-22 creatinine, serum 1.15 mg/dL [facility] 0.70-1.35 Normal urea nitrogen, blood 18 mg/dL [facility] 7-25 Normal blood glucose, random 127 mg/dL [facility] 65-99 High pro brain natriuretic peptide 666 pg/mL Link[facility]ic 0-376 High ferritin, serum 113 ng/mL [facility] 30-400 iron saturation percent, serum 30 % [facility] 15-55 iron, serum 91 ug/dL [facility] 38-169 iron binding capacity, unsaturated 208 ug/dL [facility] [phone]/12/ 08 iron binding capacity, total 299 ug/dL [facility] 382-657 9222/12/ 08 lipoprotein, beta, serum, point, quantitative, calculated 63 mg/dL [facility] 0-99 HDL cholesterol, serum 57 mg/dL [facility] >39 triglyceride, serum, random 135 mg/dL [facility] 0-149 cholesterol, serum 143 mg/dL [facility] 189-397 3027/12/ 08 calcium, serum 10.0 mg/dL [facility] 8.6-10.2 carbon dioxide, venous blood 27 mmol/L [facility] 20-29 chloride, serum 99 mmol/L [facility] 96-106 potassium, serum 4.3 mmol/L [facility] 3.5-5.2 sodium, serum 142 mmol/L [facility] [phone]/12/ 08 urea nitrogen/creatinine ratio, serum 18 Link[facility]ic 10-24 eGFR if 103 mL/min/{ 1.73_m2} Link[facility]ic >59 eGFR if not 89 mL/min/{ 1.73_m2} [facility]ic >59 creatinine, serum 0.90 mg/dL [facility] 0.76-1.27 urea nitrogen, blood 16 mg/dL [facility] 8-27 blood glucose, random 101 mg/dL [facility] 65-99 High basophil count, absolute 0.0 x10E3/uL [facility]ic 0.0-0.2 Eosinophil Absolute Count 0.0 X10E3/UL [facility]ic 0.0-0.4 monocyte count, blood, automated 0.4 X10E3/UL [facility] 0.1-0.9 lymphocyte count, blood, automated 0.9 X10E3/UL [facility] 0.7-3.1 Absolute Neutrophils 2.8 X10E3/UL [facility] 1.4-7.0 basophils as percent of blood leukocytes 1 % [facility]ic Not Estab. eosinophils as percent of blood leukocytes 1 % [facility] Not Estab. monocytes as percent of blood leukocytes 9 % [facility] Not Estab. lymphocytes as percent of blood leukocytes 21 % [facility] Not Estab. neutrophils as percent of blood leukocytes 68 % [facility] Not Estab. platelet count 185 X10E3/UL [facility] [phone]/12/ 08 red blood cell distribution width 11.8 % [facility] 11.6-15.4 mean corpuscular hemoglobin concentration, RBC 34.4 G/DL [facility] 31.5-35.7 mean corpuscular hemoglobin, RBC 30.9 pg [facility] 26.6-33.0 mean corpuscular volume, RBC 90 fL [facility] 79-97 hematocrit, blood 42.5 % [facility] 37.5-51.0 hemoglobin, blood 14.6 g/dL [facility] 13.0-17.7 erythrocyte (RBC) count 4.73 X10E6/UL [facility] 4.14-5.80 leukocyte count, blood 4.1 X10E3/UL [facility] 3.4-10.8 pro brain natriuretic peptide 252 pg/mL [facility] 0-210 High pro brain natriuretic peptide 423 pg/mL [facility] 0-210 High microalbumin/creatin ine ratio, urine 31.0 MG/G CREAT [facility]ic 0.0-30.0 High microalbumin, random, urine 5.47 mg/dL [facility] Units converted. See lab report for original value. creatinine, random, urine 176.3 mg/dL [facility] Not Estab. ferritin, serum 16 ng/mL [facility] 30-400 Low B-12, serum 967 pg/mL [facility]ic 232-1245 folate, serum 16.0 ng/mL [facility] >3.0 iron saturation percent, serum 8 % [facility] 15-55 Critical low iron, serum 40 ug/dL [facility] 38-169 iron binding capacity, unsaturated 445 ug/dL [facility] 111-343 High iron binding capacity, total 485 ug/dL [facility] 250-450 High calcium, serum 9.9 mg/dL [facility] 8.6-10.2 carbon dioxide, venous blood 28 mmol/L [facility] 20-29 chloride, serum 97 mmol/L [facility] 96-106 potassium, serum 4.8 mmol/L [facility] 3.5-5.2 sodium, serum 145 mmol/L [facility] 134-144 High urea nitrogen/creatinine ratio, serum 18 [facility] 10-24 eGFR if 67 mL/min/{ 1.73_m2} [facility] >59 eGFR if not 58 mL/min/{ 1.73_m2} [facility]ic >59 Low creatinine, serum 1.30 mg/dL [facility] 0.76-1.27 High urea nitrogen, blood 24 mg/dL [facility] 8-27 blood glucose, random 156 mg/dL [facility] 65-99 High basophil count, absolute 0.0 x10E3/uL [facility] 0.0-0.2 Eosinophil Absolute Count 0.1 X10E3/UL [facility] 0.0-0.4 monocyte count, blood, automated 0.8 X10E3/UL [facility] 0.1-0.9 lymphocyte count, blood, automated 1.7 X10E3/UL [facility] 0.7-3.1 Absolute Neutrophils 3.3 X10E3/UL [facility] 1.4-7.0 basophils as percent of blood leukocytes 0 % [facility] Not Estab. eosinophils as percent of blood leukocytes 1 % [facility] Not Estab. monocytes as percent of blood leukocytes 13 % [facility] Not Estab. lymphocytes as percent of blood leukocytes 29 % [facility] Not Estab. neutrophils as percent of blood leukocytes 57 % [facility] Not Estab. platelet count 202 X10E3/UL [facility] [phone]/11/ 27 red blood cell distribution width 13.3 % [facility] 12.3-15.4 mean corpuscular hemoglobin concentration, RBC 32.2 G/DL [facility] 31.5-35.7 mean corpuscular hemoglobin, RBC 27.0 pg [facility] 26.6-33.0 mean corpuscular volume, RBC 84 fL [facility] 79-97 hematocrit, blood 42.3 % [facility] 37.5-51.0 hemoglobin, blood 13.6 g/dL [facility] 13.0-17.7 erythrocyte (RBC) count 5.03 X10E6/UL [facility] 4.14-5.80 leukocyte count, blood 5.8 X10E3/UL [facility] 3.4-10.8 troponin I 0.12 ng/mL [facility] < OR = 0.05 High D-dimer quantitative mcg/mL 1.06 MCG/ML FEU Link[facility] <0.50 High free thyroxine index 5.4 ??g/dL [facility] 4.4 - 11.4 triiodothyronine uptake 1.1 TBI [facility] 0.8 - 1.3 thyroxine, serum, total 5.9 ??G/DL [facility] 4.5 - 11.7 thyroid stimulating hormone, serum 1.690 ?IU/M L [facility] 0.270 - 4.200 red blood cell distribution width, size density 42.5 fL [facility] - immature granulocytes, percentage of total cells, blood 0.0 % [facility] nucleated red blood cells as percent of blood leukocytes 0.0 % [facility] - red blood cell (erythrocyte) count, per high power field 0.0 10*3/UL [facility] - eosinophils as percent of blood leukocytes 1.6 % [facility] - neutrophils as percent of blood leukocytes 57.7 % [facility] - Absolute Neutrophils 2.2 CELLS/UL [facility] 1.5 - 7.8 basophils as percent of blood leukocytes 0.5 % [facility] - Absolute Basophils 0.0 CELLS/UL [facility] 0.0 - 0.2 monocytes as percent of blood leukocytes 9.9 % [facility] - Absolute Monocytes 0.4 CELLS/UL [facility] 0.2 - 1.0 lymphocytes as percent of blood leukocytes 30.3 % [facility] Absolute Lymphocytes 1.1 CELLS/UL LinkLogic 0.9 - 3.9 mean platelet volume 11.9 (?) LinkLog - platelet count 185.0 THOUSAND /UL Link[facility] 100.0 - 400.0 mean corpuscular hemoglobin concentration, RBC 31.0 G/DL [facility] 31.0 - 38.0 mean corpuscular hemoglobin, RBC 25.9 pg [facility] 25.0 - 35.0 mean corpuscular volume, RBC 83.6 fL LinkLog 75.0 - 100.0 hematocrit, blood 44.8 % [facility] 35.0 - 55.0 hemoglobin, blood 13.9 g/dL [facility] 11.5 - 16.5 erythrocyte count, whole blood 5.4 MILLION/ UL [facility] 3.5 - 5.5 vitamin b12, serum 625.7 pg/mL [facility] 211.0 - 946.0 anion gap, serum 11.0 [facility] - albumin/globulin ratio, serum 3.2 g/dL [facility] 1.1 - 2.5 High globulin, serum 2.7 [facility] 2.3 - 3.8 urea nitrogen/creatinine ratio, serum 25.0 [facility] - Estimated Glomerular Filtration Rate (calc) 104.8 (?) [facility] 59.0 - chloride, serum 102.0 mmol/L [facility] 98.0 - 107.0 potassium, serum 4.8 mmol/L [facility] 3.5 - 5.1 sodium, serum 145.0 mmol/L [facility] 136.0 - 145.0 creatinine, serum 0.8 mg/dL [facility] 0.7 - 1.2 carbon dioxide, venous blood 32.0 mmol/L [facility] 23.0 - 31.0 High albumin, serum 5.0 g/dL [facility] 3.5 - 5.2 calcium, serum 9.7 mg/dL [facility] 8.6 - 10.2 aspartate aminotransferase (SGOT), serum 17.0 1/L [facility] 0.0 - 40.0 alkaline phosphatase, serum 72.0 1/L [facility] 40.0 - 130.0 alanine aminotransferase (SGPT), serum 10.0 1/L [facility] 0.0 - 41.0 protein, total, serum 7.7 g/dL [facility] 6.6 - 8.7 bilirubin, serum, total 0.4 mg/dL [facility] 0.0 - 1.2 urea nitrogen, blood 20.0 mg/dL [facility] 6.0 - 20.0 blood glucose, random 106.0 mg/dL LinkLog 74.0 - 99.0 High pro brain natriuretic peptide 886.9 pg/mL [facility] 0.0 - 125.0 High red blood cell distribution width, size density 38.0 fL [facility] - immature granulocytes, percentage of total cells, blood 0.2 % [facility] - nucleated red blood cells as percent of blood leukocytes 0.0 % [facility] - red blood cell (erythrocyte) count, per high power field 0.0 10*3/UL [facility] - eosinophils as percent of blood leukocytes 2.5 % [facility] - neutrophils as percent of blood leukocytes 59.1 % [facility] - Absolute Neutrophils 2.9 CELLS/UL [facility] 1.5 - 7.8 basophils as percent of blood leukocytes 0.6 % [facility] - Absolute Basophils 0.0 CELLS/UL [facility] 0.0 - 0.2 monocytes as percent of blood leukocytes 8.7 % [facility] - Absolute Monocytes 0.4 CELLS/UL [facility] 0.2 - 1.0 lymphocytes as percent of blood leukocytes 28.9 % [facility] - Absolute Lymphocytes 1.4 CELLS/UL [facility] 0.9 - 3.9 mean platelet volume 10.8 (?) [facility] - platelet count 378.0 THOUSAND /UL [facility] 100.0 - 400.0 mean corpuscular hemoglobin concentration, RBC 31.9 G/DL LinkLog 31.0 - 38.0 mean corpuscular hemoglobin, RBC 27.6 pg LinkLog 25.0 - 35.0 mean corpuscular volume, RBC 86.8 fL LinkLog 75.0 - 100.0 hematocrit, blood 36.1 % LinkLog 35.0 - 55.0 hemoglobin, blood 11.5 g/dL LinkLog 11.5 - 16.5 erythrocyte count, whole blood 4.2 MILLION/ UL [facility] 3.5 - 5.5 iron binding capacity, unsaturated 274.0 ??G/DL [facility] 112.0 - 347.0 ferritin, serum 311.1 ng/mL [facility] 30.0 - 400.0 iron binding capacity, total 307.0 (?) LinkLogic - iron, serum 33.0 ug/dL [facility] 31.0 - 144.0 HISTORY OF MEDICATION USE Medication Status Instructions Dates Provider Indications Com ments Jardiance 25 mg tablet active Doyle Monroy MD amlodipine 10 mg tablet completed - 08/18 Doyle Monroy MD Norvasc 10 mg tablet completed TAKE 1 TABLET BY MOUTH DAILY 06/29 - 08/18 Doyle Monroy MD Multaq 400 mg tablet active TAKE 1 TABLET BY MOUTH TWICE DAILY WITH THE MORNING AND EVENING MEAL 06/29 Doyle Monroy MD clopidogrel 75 mg tablet active Doyle Monroy MD omeprazole 20 mg capsule,delayed release(DR/EC) active Doyle Monroy MD citalopram 40 mg tablet active 05/25 Doyle Monroy MD losartan 100 mg tablet active TAKE 1 TABLET BY MOUTH DAILY Susanne Robbins NP memantine 10 mg tablet active 1 tablet by mouth twice a day Sushila Silva NP bupropion HCl 150 mg tablet sustained-releas e 12 hr completed 1 tablet by mouth once a day - 06/29 Doyle Monroy MD Plavix 75 mg tablet completed Take 1 tablet by mouth once daily 01/10 - 06/29 Doyle Monroy MD Nexlizet 180-10 mg tablet active Take 1 tablet by mouth once a day 12/21 Doyle Monroy MD losartan 50 mg tablet completed TAKE 1 TABLET BY MOUTH DAILY 09/08 - Susanne Robbins NP ergocalciferol (vitamin D2) 1,250 mcg (50,000 unit) capsule active TAKE 1 CAPSULE BY MOUTH ONCE PER WEEK 07/25 Damari Orozco donepezil 10 mg tablet active 1 tablet by mouth once a day Sushila Silva NP doxepin 10 mg/mL concentrate active Doyle Monroy MD losartan 100 mg tablet completed Take 1 tablet by mouth once a day 07/25 - 09/08 Elena Enriquez eszopiclone 3 mg tablet active Doyle Monroy MD Jardiance 10 mg tablet completed Take 1 tablet by mouth once a day 05/29 - 07/25 Doyle Monroy MD Kerendia 20 mg tablet completed 1 tablet by mouth once a day 05/29 - 07/25 Doyle Monroy MD Entresto 97-103 mg tablet completed TAKE 1 TABLET TWICE A DAY DIRECTED 05/29 - 07/25 Doyle Monroy MD ferrous sulfate 325 mg (65 mg iron) tablet active TAKE 1 TABLET BY MOUTH EVERY DAY Damari Orozco ergocalciferol (vitamin D2) unspecified unspecified completed - 07/25 Doyle Monroy MD cyanocobalamin (vitamin B-12) unspecified unspecified completed - 07/25 Doyle Monroy MD atorvastatin 80 mg tablet active TAKE 1 TABLET BY MOUTH EVERY DAY Doyle Monroy MD ezetimibe 10 mg tablet completed - 01/18 Sushila Silva NP testosterone 20.25 mg/1.25 gram (1.62 %) gel in metered-dose pump active Doyle Monroy MD FeroSul 325 mg (65 mg iron) tablet completed Take 1 tablet by mouth once a day 09/18 - Krystyna Robbins aspirin 81 mg tablet,delayed release (DR/EC) active TAKE 1 TABLET BY MOUTH EVERY DAY 08/19 Azar Cristina atorvastatin 80 mg tablet completed TAKE 1 TABLET BY MOUTH EVERY DAY - 08/08 Yodit Verdugo omeprazole 20 mg capsule,delayed release(DR/EC) completed Take 1 capsule by mouth once a day TAKE 1 CAPSULE BY MOUTH EVERY DAY - 08/03 Yodit Verdugo losartan 25 mg tablet completed TAKE 1 TABLET BY MOUTH EVERY DAY 07/02 - 05/29 Doyle Monroy MD Farxiga 10 mg tablet completed TAKE 1 TABLET BY MOUTH DAILY, REDUCES CARDIOVASCULAR AND HEART FAILURE HOSPITALIZATIONS 06/04 - 05/30 Rayne Fiore NP ferrous sulfate 325 mg (65 mg iron) tablet completed Take 1 tablet by mouth once a day 05/30 - 07/29 Ange Lopez metformin 500 mg tablet active TAKE 1 TABLET BY MOUTH TWICE A DAY 12/12 Ange Lopez Farxiga 10 mg tablet completed 1 tablet by mouth once a day 06/30 - 06/04 Doyle Monroy MD omeprazole 20 mg capsule,delayed release(DR/EC) completed Take 1 capsule by mouth once a day 02/18 - 07/29 Ange Lopez #90, 90 days supply, Prescribed by SINTIA SANDY, Filled 02/19/2020 citalopram 40 mg tablet completed Take 1 tablet by mouth once a day 02/20 - 01/18 Sushila Silva SERVICE SUPERINTENDENT #90, 90 days supply, Prescribed by SINTIA SANDY, Filled 02/21/2020 atorvastatin 80 mg tablet completed Take 1 tablet by mouth once a day 11/22 - 07/29 Ange Lopez #90, 90 days supply, Prescribed by DOYLE MONROY, Filled 02/22/2020 clonazepam 2 mg tablet completed Take 1 tablet by mouth every night as needed - 06/04 Rayne Fiore SERVICE SUPERINTENDENT #90, 90 days supply, Prescribed by SINTIA SANDY, Filled 03/19/2020 TRAZODONE HCL 50 MG TABS completed Take 1 tablet by mouth every night - 01/02 Doyle Monroy MD #30, 30 days supply, Prescribed by SINTIA SANDY, Filled 04/08/2020 losartan 25 mg tablet completed Take 1 tablet by mouth once a day 11/26 - 06/27 Freddy Villagran RN TESTOSTERONE CREAM completed - 01/02 Doyle Monroy MD aspirin 81 mg tablet,delayed release (DR/EC) completed 1 tablet by mouth once a day - 07/29 Ange Lopez CELEXA 20 MG ORAL TABLET completed DAILY - 06/30 Doyle Monroy MD Zetia 10 mg tablet completed 1 tablet once a day 02/20 - 01/02 Doyle Monroy MD AMBIEN 10 MG ORAL TABLET completed 2 at a time as needced for sleep 09/28 - 06/30 Yodit Gandhi ADIPEX-P 37.5 MG ORAL TABLET completed one tab by mouth daily 09/28 - Doyle Monroy MD XARELTO 2.5 MG TABLET completed TAKE ONE TABLET BY MOUTH TWICE A DAY 10/16 - 06/30 Yodit Gandhi isosorbide mononitrate 30 mg tablet extended release 24 hr completed Take 1 tablet by mouth once a day 08/14 - Susanne Robbins NP #90, 90 days supply, Prescribed by SINTIA SANDY, Filled 08/19/2018 NORTRIPTYLINE HCL 25 MG ORAL CAPSULE completed Take 1 tab daily 08/18 - Doyle Monroy MD #30, 30 days supply, Prescribed by SINTIA SANDY, Filled 09/10/2018 REVATIO 20 MG ORAL TABLET completed UP TO 5 AT A TIME FOR ED DO NOT TAKE WITH IN 3 DAYS OF ISOSORBIDE 06/18 - 09/28 Livia Dillon NALTREXONE HCL 50 MG ORAL TABLET completed ONE A DAY 06/18 - 09/28 Livia Dillon COZAAR 25 MG ORAL TABLET completed ONE TAB. DAILY 06/18 - 06/30 Doyle Monroy MD TESTOSTERONE CYPIONATE 100 MG/ML INTRAMUSCULAR SOLUTION completed 1ml weekly 06/18 - Doyle Monroy MD CITALOPRAM HYDROBROMIDE 40 MG ORAL TABLET completed ONE A DAY 06/18 - 09/28 Livia Dillon LIPITOR 80 MG ORAL TABLET completed ONE TAB. DAILY 06/18 - 06/30 Doyle Monroy MD NORVASC 10 MG ORAL TABLET completed ONE TAB. DAILY 06/18 - Doyle Monroy MD hydrochlorothiaz amandeep 25 mg tablet completed Take 1 tablet by mouth once a day 08/24 - 01/02 Doyle Monroy MD RANEXA 500 MG ORAL TABLET EXTENDED RELEASE 12 HOUR completed ONE TAB. TWICE DAILY for chronic angina 07/02 - 06/18 Cary Eugene QSYMIA 7.5-46 MG ORAL CAPSULE EXTENDED RELEASE 24 HOUR completed one tablet daily 07/02 - 06/18 Cary Eugene QSYMIA 3.75-23 MG ORAL CAPSULE EXTENDED RELEASE 24 HOUR completed one tablet daily 07/02 - 06/18 Cary Eugene VITAMIN D3 53005 UNIT ORAL TABLET completed TAKE ONE TAB BY MOUTH WEEKLY 06/17 - 06/30 Doyle Monroy MD ALTACE 10 MG ORAL CAPSULE completed ONE TAB. DAILY 06/15 - 06/18 Cary Eugene [facility] OMEPRAZOLE 20 MG ORAL TABLET DELAYED RELEASE completed once daily - 06/30 Doyle Monroy MD metformin 500 mg tablet completed TAKE ONE TABLET BY MOUTH TWICE A DAY 08/24 - 12/12 Cary Cole MENS MULTIVITAMIN PLUS ORAL TABLET completed once a day - 01/02 Doyle Monroy MD PRAVACHOL 40 MG ORAL TABLET completed once daily - 06/18 Cary Eugene OXYCODONE-ACETAM INOPHEN 5-325 MG ORAL TABLET completed one tablet four times a day - 12/12 Sophia Hammer ASPIR-81 81 MG ORAL TABLET DELAYED RELEASE completed once daily - Doyle SARAVIA TICAGRELOR 90MG BID/PLACEBO completed 06/11 - 06/18 Cary Eugene SOCIAL HISTORY Date Observation Value Provider personal history of marijuana use no Doyle Monroy MD drug use no Doyle Santos alcohol use, average drinks per day social Doyle Monroy MD alcohol use yes Doyle Conteha Corrina Santos smoking, year quit 1977 Doyle skinner MD number of years as a smoker 1979 a Doyle Monroy MD smoking, date started 1974 Doyle Monroy MD smoking history, tot al pack/year 3 Doyle Monroy MD smoking history, tot al pack/day 1 Doyle Monroy MD cigarette use yes Doyle Monroy MD smoking status Former smoker Doyle thibodeaux MD personal history of marijuana use no Doyle Monroy MD drug use no Doyle Serota Corrina Santos alcohol use, average drinks per day social Doyle Monroy MD alcohol use yes Doyle Santos smoking, year quit 1977 Doyle skinner MD number of years as a smoker 1979 a Doyle Monroy MD smoking, date started 1974 Doyle Monroy MD smoking history, tot al pack/year 3 Doyle Monroy MD smoking history, tot al pack/day 1 Doyle Monroy MD cigarette use yes Doyle Monroy MD smoking status Former smoker Doyle thibodeaux MD quit smoking, stage quit Doyle oh MD personal history of marijuana use no Susanne Nalluri SERVICE SUPERINTENDENT drug use no Susanne Nalluri SERVICE SUPERINTENDENT alcohol use, average drinks per day social Susanne Nalluri SERVICE SUPERINTENDENT alcohol use yes Susanne Nalluri SERVICE SUPERINTENDENT smoking, year quit 1977 Susanne N alluri SERVICE SUPERINTENDENT number of years as a smoker 1980 a Susanne Nalluri SERVICE SUPERINTENDENT smoking, date started 1974 Neelim a Nalluri SERVICE SUPERINTENDENT smoking history, tot al pack/year 3 Susanne Nalluri SERVICE SUPERINTENDENT smoking history, tot al pack/day 1 Susanne Nalluri SERVICE SUPERINTENDENT cigarette use yes Susanne Nallur i SERVICE SUPERINTENDENT smoking status Former smoker Susanne Maldonado uri SERVICE SUPERINTENDENT personal history of marijuana use no Sushila Kirklandri SERVICE SUPERINTENDENT drug use no Sushila Beattyreri SERVICE SUPERINTENDENT alcohol use, average drinks per day social Sushila Beattyreri SERVICE SUPERINTENDENT alcohol use yes Sushila Beattyreri SERVICE SUPERINTENDENT smoking, year quit 1977 Sushila Priest areri SERVICE SUPERINTENDENT smoking history, tot al pack/year 3 Sushila Beattyreri SERVICE SUPERINTENDENT smoking history, tot al pack/day 1 Sushila Beattyreri SERVICE SUPERINTENDENT cigarette use yes Sushila Beattyreri SERVICE SUPERINTENDENT smoking status Former smoker Sushila Kirkland ri SERVICE SUPERINTENDENT number of years as a smoker 1980 a Elena Mina smoking, date started 1974 Elena W haim smoking history, tot al pack/year 41 Elena Mina smoking history, tot al pack/day 1 Elenacarlos eduardo Enriquez cigarette use yes Elenacarlos eduardo Enriquez smoking status Former smoker Elenacarlos eduardo pollock social history E&M S moking History: Jaclyn beavers is a former smoker. oDyle Monroy MD social history reviewed E&M revi ewed - no changes required Doyle Monroy MD number of years as a smoker 1980 a Elena Mina smoking, date started 1974 Elena W illiams smoking history, tot al pack/year 41 Elenacarlos eduardo Enriquez smoking history, tot al pack/day 1 Elena Mina cigarette use yes Elena Mina smoking status Former smoker Elenacarlos eduardo pollock quit smoking, stage quit Doyle oh MD social history E&M S moking History: Jaclyn beavers is a former smoker. Doyle Monroy MD social history reviewed E&M revi ewed - no changes required Doyle Monroy MD number of years as a smoker 1980 a Shannan Lim smoking, date started 1975 Kang Mustafa smoking history, tot al pack/year 41 Shannan Lim smoking history, tot al pack/day 1 Shannan Lim cigarette use yes Shannan Reeedr nd smoking status Former smoker Shannan staton social history reviewed E&M revi ewed - no changes required Rayne Fiore SERVICE SUPERINTENDENT cigarette use yes Jose Edward s smoking status Former smoker Jose Radfordwa rds social history E&M S moking History: P atient is a former smoker. Doyle Monroy MD social history reviewed E&M revi ewed - no changes required Doyle Monroy MD number of years as a smoker 1980 a Yodit Block smoking, date started 1974 Lily segura Block smoking history, tot al pack/year 41 Yodit Block smoking history, tot al pack/day 1 Yodit Block cigarette use yes Yodit Block smoking status Former smoker Yodit Bruno ck social history E&M S moking History: P atient is a former smoker. Doyle Monroy MD social history reviewed E&M revi ewed - no changes required Doyle Monroy MD number of years as a smoker 1980 a Betsy Kent smoking, date started 1975 Raffy Kent smoking history, tot al pack/year 41 Betsy Kent smoking history, tot al pack/day 1 Betsy Kent cigarette use yes Betsy augustine smoking status Former smoker Betsy gibbons social history E&M S moking History: P atient is a former smoker. Doyle Monroy MD social history reviewed E&M revi ewed - no changes required Doyle Monroy MD number of grandchildren Doyle Monroy MD Livia Dillon number of years as a smoker 1980 a Livia Dillon smoking, date started 1974 Killmigdalia n Dillon smoking history, tot al pack/year 41 Livia Dillon smoking history, tot al pack/day 1 Livia Dillon cigarette use yes Livia Dillon smoking status Former smoker Livia Jackson am social history E&M S moking History: Jaclyn beavers is a former smoker. Doyle Monroy MD number of years as a smoker 1980 a Cary Carreon-Mark smoking, date started 1974 Cary Carreon-Makr smoking history, tot al pack/year 41 Cary Carreon-Mark smoking history, tot al pack/day 1 Cary Carreon-Mark cigarette use yes Cary Carreon -Mark smoking status Former smoker Cary Zaragoza on-Mark social history reviewed E&M revi ewed - no changes required Cary Carreon-Mark smoking history, tot al pack/year 41 Bipin Caraballo smoking history, tot al pack/year 41 Madelaine Machado RN social history reviewed E&M revi ewed - no changes required Doyle Monroy MD smoking status Former smoker Cecelia bruno smoking history, tot al pack/year 40 Madelaine Machado RN social history reviewed E&M revi ewed - no changes required Doyle Monroy MD number of years as a smoker 1980 a Octavia Willie smoking, date started 1974 Melboo a Willie smoking history, tot al pack/day 1 Octavia Willie cigarette use yes Octavia Willie smoking status Former smoker Octavia Tapia FUNCTIONAL STATUS Date Observation Value Provider HRA, CV Assess/Plan, Angina (inactive) Management Plan continue current therapy Doyle Monroy MD HRA, CV Assess/Plan, Angina (inactive) Management Plan continue current therapy Doyle Monroy MD HRA, CV Assess/Plan, Angina (inactive) Management Plan continue current therapy Susannezabrina Talaverakirstenri SERVICE SUPERINTENDENT HRA, CV Assess/Plan, Angina (inactive) Management Plan continue current therapy Sushila Beattyclariri SERVICE SUPERINTENDENT HRA, CV Assess/Plan, Angina (inactive) Management Plan schedule PCI Rayne Dobsonamaris SERVICE SUPERINTENDENT HRA, CV Assess/Plan, Angina (inactive) Management Plan continue current therapy Doyle Monroy MD HRA, CV Assess/Plan, Angina (inactive) Management Plan continue current therapy Doyle Monroy MD HRA, CV Assess/Plan, Angina (inactive) Management Plan continue current therapy Rayne Fiore SERVICE SUPERINTENDENT HRA, CV Assess/Plan, Angina (inactive) Management Plan continue current therapy Doyle Monroy MD HRA, CV Assess/Plan, Angina (inactive) Management Plan continue current therapy Doyle Monroy MD HRA, CV Assess/Plan, Angina (inactive) Management Plan continue current therapy Doyle Monroy MD HRA, CV Assess/Plan, Angina (inactive) Management Plan continue current therapy Doyle Monroy MD periodic limb movement index absent (0) Cecelia Luz FAMILY HISTORY Family Member Condition Father Family History of Co ronary Artery Disease: Father Family History of Hy pertension: Mother Family History of Co ronary Artery Disease: Mother Family History of Hy pertension: INSURANCE PROVIDERS Payer name Policy type / Coverage type [employer] party ID ESSENCE O Other [id number] ADVANCE DIRECTIVES Name Date DISCUSSED - NO DECISION MADE TREATMENT PLAN Date Name Performer [id number],S, Doyle thibodeaux MD [id number],S, N o angina. MOSTLY FIXED DEFECT WITH SOME REVERABILIYY nuc stress 2018. l eft main with nml lv, had cabg 2014, HAD STENTS AT [facility] AFTER, Doyle Monroy MD [id number],C, 6 Doyle Monroy MD [id number],B, Doyle thibodeaux MD [id number],S, Doyle thibodeaux MD [id number],S, 1 21 Doyle Monroy MD [id number],S, e f 55, pro 453 Doyle Monroy MD [id number],S,C HOL: 203 (02/26/2023) LDL: 127 MG/DL (CALC) (02/26/2023) HDL: 47 (02/26/2023) T (02/26/2023) C RP: 1.5 mg/L (02/26/2023) H is updated medication list for this problem includes: Atorvastatin 80 Mg Tablet (Atorvastatin) Ezetimibe 10 Mg Tablet (Ezetimibe) Doyle Monroy MD [id number],C, H is updated medication list for this problem includes: Atorvastatin 80 Mg Tablet (Atorvastatin) Ezetimibe 10 Mg Tablet (Ezetimibe) C HOL: 203 (02/26/2023) LDL: 127 MG/DL (CALC) (02/26/2023) HDL: 47 (02/26/2023) T (02/26/2023) C RP: 1.5 mg/L (02/26/2023) Doyle Monroy MD [id number],C,121 Doyle skinner MD [id number],C,ef 55, pro 45 3 Doyle Monroy MD [id number],C,480, ef 54 Zapata diogenes Monroy MD [id number],S,neg psa Miryam Monroy MD [id number],S, Doyle thibodeaux MD [id number],C,e fgr 69 n eg psa N EG VD WITH HIGH DD AND TSH neg ct pe Doyle Monroy MD [id number],S,6 Doyle grove MD [id number],B, Doyle thibodeaux MD [id number],B, u pt toda te on colon iron corrected Doyle Monroy MD [id number],B, Doyle thibodeaux MD [id number],S,4 80 p roBNP 666 Doyle Monroy MD [id number],S, m ild mr and tr Doyle Monroy MD [id number],S, Doyle thibodeaux MD [id number],C,2015 Rayne Fiore NP [id number],C,p roBNP 666 S tart farxiga. Rayne Fiore NP [id number],C, H is updated medication list for this problem includes: Atorvastatin 80 Mg Tablet (Atorvastatin) ..... Take 1 tablet by mouth once a day Zetia 10 Mg Tablet (Ezetimibe) ..... 1 tablet once a day Rayne Fiore NP [id number],C,N o angina. Start MOSTLY FIXED DEFECT WITH SOME REVERABILIYY nuc stress 2018. l eft main with nml lv, had cabg 2014, HAD STENTS AT [facility] AFTER, Rayne Fiore NP [id number],C, H is updated medication list for this problem includes: Aspirin 81 Mg Tablet,delayed Release (dr/ec) (Aspirin) ..... 1 tablet by mouth once a day Losartan 25 Mg Tablet (Losartan) ..... Take 1 tablet by mouth once a day Coreg 25 Mg Tablet (Carvedilol) ..... Once a day Hydrochlorothiazide 25 Mg Tablet (Hydrochlorothiazide) ..... Take 1 tablet by mouth once a day BP today: 140/80 P rior BP: 136/80 (04/29/2020) Rayne Fiore SERVICE SUPERINTENDENT [id number],C,No angina Mecca Cervantes SERVICE SUPERINTENDENT [id number],S, Rayne glez SERVICE SUPERINTENDENT [id number],C, m ild mr and tr Rayne Wong Macarena SERVICE SUPERINTENDENT Cardiology:120 2 93 Doyle Monroy MD Cardiology Doyle Monroy MD Cardiology: L VEP 17 pro 1200 e f 55 and pro 259 Doyle Monroy MD Cardiology:33 Doyle Monroy MD Cardiology Doyle Monroy MD Cardiology: 2 93 Doyle Monroy MD Cardiology:53 Doyle Monroy MD Cardiology: n eg psa N EG VD WITH HIGH DD neg ct pe Doyle Monroy MD Cardiology: n eg ct and neg hep panle Doyle Monroy MD Cardiology: I MA TO LAD SVG TO RCA AND RADIAL OFF SVG ALL OPEEN 24 2 015 Doyle Monroy MD Cardiology Doyle Monroy MD Cardiology: n eg psa Doyle Monroy MD Cardiology Doyle Monroy MD Cardiology Doyle Monroy MD Cardiology: 6 .1 Doyle Monroy MD Cardiology: A LL COMPLTE NOW he is s/p stenting of mid LAD with reduction of stenosis from 90% to less than 10% with a 2.5 x 22mm [employer] stent. The first diagonal branch was angioplastied with a 2.0 balloon due to stent usp. Successful angioplasty of the ostium of the left circumflex with reduction of stenosis from 80% down to less than 20%. Both these interventions were done under intravascular ultrasound guidance. R CA STENTED EARLYE THIS YEAR Doyle Monroy MD Cardiology:afib not showign up on kardiomole Doyle Mnoroy MD :neg ct and neg hep panle Doyle Monroy MD Cardiology Doyle Monroy MD Cardiology Doyle Monroy MD Cardiology:ORI TO LA D SVG TO RCA AND RADIAL OFF SVG ALL OPEEN 24 2 015 Doyle Monroy MD Cardiology: n eg psa N EG VD WITH HIGH DD neg ct pe Doyle Monroy MD Cardiology:neg lliver ct Doyle Monroy MD Cardiology:LVEP 17 p ro 1200 e f 55 and pro 259 His updated medication list for this problem includes: Plavix 75 Mg Tablet (Clopidogrel) ..... Take 1 tablet by mouth once daily Losartan 50 Mg Tablet (Losartan) ..... Take 1 tablet by mouth daily Aspirin 81 Mg Tablet,delayed Release (dr/ec) (Aspirin) ..... Take 1 tablet by mouth every day Coreg 25 Mg Tablet (Carvedilol) ..... Once a day Isosorbide Mononitrate 30 Mg Tablet Extended Release 24 Hr (Isosorbide mononitrate) ..... Take 1 tablet by mouth once a day Doyle Monroy MD Cardiology:ALL COMPL TE NOW he is s/p stenting of mid LAD with reduction of stenosis from 90% to less than 10% with a 2.5 x 22mm [employer] stent. The first diagonal branch was angioplastied with a 2.0 balloon due to stent usp. Successful angioplasty of the ostium of the left circumflex with reduction of stenosis from 80% down to less than 20%. Both these interventions were done under intravascular ultrasound guidance. R CA STENTED EARLYE THIS YEAR Doyle Monroy MD Cardiology: 6 .1 Doyle Monroy MD Cardiology: 2 93 Doyle Monroy MD Cardiology:SLOW DOWN TO 38, FAST 145 5 BEAT VT VS ARIB WITH ABERANCE Doyle Monroy MD Cardiology Doyle Monroy MD :6.1 Doyle Monroy MD :293 Doyle Monroy MD : c /o frequent lightheadedness. will get 30 days telesentry Susanne Talaveraluri SERVICE SUPERINTENDENT : 1 31 Susanne Talaveraluri SERVICE SUPERINTENDENT : e f 55 and pro 259 His updated medication list for this problem includes: Plavix 75 Mg Tablet (Clopidogrel) ..... Take 1 tablet by mouth once daily Losartan 50 Mg Tablet (Losartan) ..... Take 1 tablet by mouth daily Aspirin 81 Mg Tablet,delayed Release (dr/ec) (Aspirin) ..... Take 1 tablet by mouth every day Coreg 25 Mg Tablet (Carvedilol) ..... Once a day Isosorbide Mononitrate 30 Mg Tablet Extended Release 24 Hr (Isosorbide mononitrate) ..... Take 1 tablet by mouth once a day Susanne Talaveraluri SERVICE SUPERINTENDENT :On rx Susanne Talaveraluri SERVICE SUPERINTENDENT : T he patient is using CPAP on a regular basis. The patient has been benefiting from therapy and should continue use. Susannezabrina Talaveraluri SERVICE SUPERINTENDENT : H is updated medication list for this problem includes: Atorvastatin 80 Mg Tablet (Atorvastatin) ..... Take 1 tablet by mouth every day Nexlizet 180-10 Mg Tablet (Bempedoic acid-ezetimibe) ..... Take 1 tablet by mouth once a day Susanne Sadafluri SERVICE SUPERINTENDENT : B P today: 161/82 P rior BP: 130/82 (01/19/2024) Prior 10 Yr Risk Heart Disease: N/A (05/06/2015) Labs Reviewed: C reat: 1.15 (02/25/2023) C hol: 212 (12/22/2023) HDL: 47 (02/26/2023) LDL: 131 (12/22/2023) T (12/22/2023) Susanne Nalluri SERVICE SUPERINTENDENT :A1c 6.9 His updated medication list for this problem includes: Losartan 50 Mg Tablet (Losartan) ..... Take 1 tablet by mouth daily Aspirin 81 Mg Tablet,delayed Release (dr/ec) (Aspirin) ..... Take 1 tablet by mouth every day Metformin 500 Mg Tablet (Metformin) ..... Take 1 tablet by mouth twice a day Susanne Sadafmariana BOATENG : he is s/p stenting of mid LAD with reduction of stenosis from 90% to less than 10% with a 2.5 x 22mm [employer] stent. The first diagonal branch was angioplastied with a 2.0 balloon due to stent usp. Successful angioplasty of the ostium of the left circumflex with reduction of stenosis from 80% down to less than 20%. Both these interventions were done under intravascular ultrasound guidance. Susanne Robbins NP : H is updated medication list for this problem includes: Atorvastatin 80 Mg Tablet (Atorvastatin) ..... Take 1 tablet by mouth every day Nexlizet 180-10 Mg Tablet (Bempedoic acid-ezetimibe) ..... Take 1 tablet by mouth once a day Susanne Robbins NP Cardiology: c /o frequent lightheadedness. will get 30 days telesentry Sushila Silva NP Cardiology: a 1c 7.1 in 12/14 His updated medication list for this problem includes: Losartan 50 Mg Tablet (Losartan) ..... Take 1 tablet by mouth daily Aspirin 81 Mg Tablet,delayed Release (dr/ec) (Aspirin) ..... Take 1 tablet by mouth every day Metformin 500 Mg Tablet (Metformin) ..... Take 1 tablet by mouth twice a day Sushila Silva NP Cardiology: 2 015 Sushila Silva NP Cardiology: s /p PTCA of posterolateral branch of the right coronary artery done with to 0 and 2 5 balloon. Two 5 x 15 on extent deployed across the lesion which was reduced to less than 10%. I FR of distal right coronary artery is 0.99 A bout 80% stenosis noted in the mid LAD proximal to SMYTH insertion 6 0-70% stenosis noted in the ostium of the circumflex less severe than noted on diagnostic angiogram B ecause of renal insufficiency will undergo PCI of the LAD and circumflex on 02/01/[address] Jayme Silva NP Cardiology: B P today: 130/82 P rior BP: 140/90 (12/21/2023) His updated medication list for this problem includes: Losartan 50 Mg Tablet (Losartan) ..... Take 1 tablet by mouth daily Aspirin 81 Mg Tablet,delayed Release (dr/ec) (Aspirin) ..... Take 1 tablet by mouth every day Coreg 25 Mg Tablet (Carvedilol) ..... Once a day Sushila Silva NP Cardiology: e f 55 and pro 259 His updated medication list for this problem includes: Plavix 75 Mg Tablet (Clopidogrel) ..... Take 1 tablet by mouth once daily Losartan 50 Mg Tablet (Losartan) ..... Take 1 tablet by mouth daily Aspirin 81 Mg Tablet,delayed Release (dr/ec) (Aspirin) ..... Take 1 tablet by mouth every day Coreg 25 Mg Tablet (Carvedilol) ..... Once a day Isosorbide Mononitrate 30 Mg Tablet Extended Release 24 Hr (Isosorbide mononitrate) ..... Take 1 tablet by mouth once a day Sushila Silva NP :80% rplv and 80% os teal cx and 85% , mild lad needs stent to gvie comple p os nuc and angion Doyle Monroy MD :ef 55 and pro 259 Doyle Monroy MD :131 Doyle Monroy MD Cardiology radial of f svg pulis ori, no root or rneanl: a 1c 7.1 in 12/14 Rayne Fiore NP Cardiology radial of f svg pulis ori, no root or rneanl:Today 140/90 P rior BP: 199/108 (07/26/2023) Prior 10 Yr Risk Heart Disease: N/A (05/06/2015) Labs Reviewed: C reat: 1.15 (02/25/2023) C hol: 203 (02/26/2023) HDL: 47 (02/26/2023) LDL: 127 MG/DL (CALC) (02/26/2023) T (02/26/2023) His updated medication list for this problem includes: Losartan 50 Mg Tablet (Losartan) ..... Take 1 tablet by mouth daily Aspirin 81 Mg Tablet,delayed Release (dr/ec) (Aspirin) ..... Take 1 tablet by mouth every day Coreg 25 Mg Tablet (Carvedilol) ..... Once a day Rayne Fiore SERVICE SUPERINTENDENT Cardiology radial of f svg pulis ori, no root or rneanl: J moncho 2023 R eturns for complaints pain in chest, tightness in throat and jaw with radiation to left arm. reports symptoms similar to right before his bypass. Pain relieved after chewing up aspirin. He is scheduled for lab work and cardiac cath next week. Echo 02/13 lvef 55%, mod lvh, diastolic dysfunction, mild lae, S tress pet 06/16 Global left ventricular function is normal Left Ventricular Ejection Fraction at stress is 52 %. Left Ventricular Ejection Fraction at rest is 44 %. TID: 1.19.Abnormal imaging in the apical region with a mild perfusion defect, which is small in size and appears fixed, with some reversibility. L abs 12/13/23 cbc ok, uacr 112, Cr. 1.10, K 5.0, lfts ok, testosterone low, ldl 138, a1c 7.1 Rayne Fiore NP Cardiology Doyle Monroy MD Cardiology: H is updated medication list for this problem includes: Losartan 100 Mg Tablet (Losartan) ..... Take 1 tablet by mouth once a day Aspirin 81 Mg Tablet,delayed Release (dr/ec) (Aspirin) ..... Take 1 tablet by mouth every day Coreg 25 Mg Tablet (Carvedilol) ..... Once a day BP today: 199/108 P rior BP: 174/104 (03/29/2023) Prior 10 Yr Risk Heart Disease: N/A (05/06/2015) Labs Reviewed: C reat: 1.15 (02/25/2023) C hol: 203 (02/26/2023) HDL: 47 (02/26/2023) LDL: 127 MG/DL (CALC) (02/26/2023) T (02/26/2023) Doyle Monroy MD Cardiology Doyle Monroy MD Cardiology Doyle Monroy MD Cardiology Doyle Monroy MD Cardiology Doyle Monroy MD Cardiology Doyle Monroy MD Cardiology Doyle Monroy MD Cardiology: e f 55, pro 453 Doyle Monroy MD Cardiology: 6 Doyle Monroy MD Cardiology:small fix ed defect with some reversigliety h ad [facility] bypaa Doyle Monroy MD Cardiology: 2 015 Doyle Monroy MD Cardiology Doyle Monroy MD Cardiology: N o angina. MOSTLY FIXED DEFECT WITH SOME REVERABILIYY nuc stress 2018. l eft main with nml lv, had cabg 2014, HAD STENTS AT [facility] AFTER, Doyle Monroy MD Cardiology: 6 Doyle Monroy MD Cardiology Doyle Monroy MD Cardiology Doyle Monroy MD Cardiology: 1 21 Doyle Monroy MD Cardiology: e f 55, pro 453 Doyle Monroy MD Cardiology:CHOL: 203 (02/26/2023) LDL: 127 MG/DL (CALC) (02/26/2023) HDL: 47 (02/26/2023) T (02/26/2023) C RP: 1.5 mg/L (02/26/2023) H is updated medication list for this problem includes: Atorvastatin 80 Mg Tablet (Atorvastatin) Ezetimibe 10 Mg Tablet (Ezetimibe) Doyle Monroy MD Cardiology: H is updated medication list for this problem includes: Atorvastatin 80 Mg Tablet (Atorvastatin) Ezetimibe 10 Mg Tablet (Ezetimibe) C HOL: 203 (02/26/2023) LDL: 127 MG/DL (CALC) (02/26/2023) HDL: 47 (02/26/2023) T (02/26/2023) C RP: 1.5 mg/L (02/26/2023) Doyle Monroy MD :121 Doyle Monroy MD :ef 55, pro 453 Doyle Monroy MD :480, ef 55 Doyle Monroy MD Cardiology:neg psa Doyle Monroy MD Cardiology Doyle Monroy MD Cardiology:efgr 70 n eg psa N EG VD WITH HIGH DD AND TSH neg ct pe Doyle Monroy MD Cardiology:6 Doyle Monroy MD Cardiology Doyle Monroy MD Cardiology: u pt toda te on colon iron corrected Doyle Monroy MD Cardiology Doyle Monroy MD Cardiology:480 p roBNP 666 Doyle Monroy MD Cardiology: m ild mr and tr Doyle Monroy MD Cardiology Doyle Monroy MD Cardiology-seen with SERVICE SUPERINTENDENT:2014 Mecca Cervantes NP Cardiology-seen with SERVICE SUPERINTENDENT:proBNP 666 S tart farxiga. Rayne Fiore NP Cardiology-seen with SERVICE SUPERINTENDENT: H is updated medication list for this problem includes: Atorvastatin 80 Mg Tablet (Atorvastatin) ..... Take 1 tablet by mouth once a day Zetia 10 Mg Tablet (Ezetimibe) ..... 1 tablet once a day Rayne Fiore NP Cardiology-seen with SERVICE SUPERINTENDENT:No angina. Start farxi MOSTLY FIXED DEFECT WITH SOME REVERABILIYY nuc stress 2018. l eft main with nml lv, had cabg 2014, HAD STENTS AT [facility] AFTER, Rayne Fiore NP Cardiology-seen with SERVICE SUPERINTENDENT: H is updated medication list for this problem includes: Aspirin 81 Mg Tablet,delayed Release (dr/ec) (Aspirin) ..... 1 tablet by mouth once a day Losartan 25 Mg Tablet (Losartan) ..... Take 1 tablet by mouth once a day Coreg 25 Mg Tablet (Carvedilol) ..... Once a day Hydrochlorothiazide 25 Mg Tablet (Hydrochlorothiazide) ..... Take 1 tablet by mouth once a day BP today: 140/80 P rior BP: 136/80 (04/29/2020) Rayne Wong Macarena SERVICE SUPERINTENDENT Cardiology-seen with SERVICE SUPERINTENDENT:No wesley thibodeaux Rayne Wong Macarena SERVICE SUPERINTENDENT Cardiology-seen with SERVICE SUPERINTENDENT Rayne C Macarena SERVICE SUPERINTENDENT Cardiology-seen with SERVICE SUPERINTENDENT: m ild mr and tr Rayne Fiore SERVICE SUPERINTENDENT :mild mr and tr Doyle Monroy MD :640 Doyle Monroy MD :upt toda te on colon iron corre cted Doyle Monroy MD Doyle Monroy MD Cardiology;fpt pendi ng: H is updated medication list for this problem includes: Losartan Potassium 25 Mg Tab (Losartan potassium) ..... Take 1 tablet by mouth every day Aspirin Adult Low Dose 81 Mg Oral Tablet Delayed Release (Aspirin) ..... One tab by mouth daily Cozaar 25 Mg Oral Tablet (Losartan potassium) ..... One tab. daily Hydrochlorothiazide 25 Mg Tab (Hydrochlorothiazide) ..... Take one tablet by mouth once daily Coreg 25 Mg Oral Tablet (Carvedilol) ..... One a day BP today: 136/80 P rior BP: 122/70 (05/23/2019) Prior 10 Yr Risk Heart Disease: N/A (05/06/2015) Labs Reviewed: C reat: 1.30 (04/19/2018) Doyle Monroy MD Cardiology;fpt pending Doyle skinner MD Cardiology;fpt pending Doyle skinner MD Cardiology;fpt pending Doyle skinner MD Cardiology;fpt pendi ng: u pt tod date oon colon, cannot afford infusins Doyle Monroy MD Cardiology;fpt pendi ng: M OSTL FIXED DEFECT WITH SOME REVERABILIYY l eft main with nml lv, had cabg, HAD STENTS AT [facility] AFTER, Doyle Monroy MD Cardiology;fpt pendin.1 Miryam Monroy MD Cardiology;fpt pending Doyle skinner MD Cardiology;fpt pending Doyle skinner MD Cardiology;fpt pending:slowest 4 4 an dhighes 114 Doyle Monroy MD Cardiology follow up Doyle grove MD Cardiology follow up : u pt tod date oon colon, cannot afford infusins Doyle Monroy MD Cardiology follow up Doyle grove MD Cardiology follow up :DEOS NOT W ANT MEDS Doyle Monroy MD Cardiology follow up :MILD MR AN D TR Doyle Monroy MD Cardiology follow up :MOSTL FIXED DEFECT WITH SOME REVERABILIYY l eft main with nml lv, had cabg, HAD STENTS AT [facility] AFTER, Doyle Monroy MD Cardiology follow up Doyle grove MD Cardiology follow up Doyle grove MD Cardiology follow up Doyle grove MD Cardiology follow up :7.3 Doyle Monroy MD Cardiology follow up Doyle grove MD Cardiology:naltrexone did not wo rk Doyle Monroy MD Cardiology:neg psa N EG VD WITH HIGH DD AND NML B12 AND TSH Doyle Monroy MD Cardiology:The patie nt is using CPAP on a regular basis. The patient has been benefiting from therapy and should continue use. Doyle Monroy MD Cardiology: l eft main with nml lv, had cabg, HAD STENTS AT [facility] AFTER, Doyle Monroy MD Cardiology:upt tod d ate oon colon, cannot afford infusins Doyle Monroy MD Cardiology:31 Doyle Monroy MD Cardiology Doyle Monroy MD Cardiology:4xx Doyle Monroy MD Cardiology: H is updated medication list for this problem includes: Isosorbide Mononitrate Er 30 Mg Oral Tablet Extended Release 24 Hour (Isosorbide mononitrate) ..... Take 1 tab once daiky Norvasc 10 Mg Oral Tablet (Amlodipine besylate) ..... One tab. daily Coreg 25 Mg Oral Tablet (Carvedilol) ..... One tab. twice daily Aspir-81 81 Mg Oral Tablet Delayed Release (Aspirin) ..... Once daily Doyle Monroy MD Cardiology:mod in 16 Doyle grove MD Cardiology Doyle Monroy MD Cardiology: T he following medications were removed from the medication list: Ranexa 500 Mg Oral Tablet Extended Release 12 Hour (Ranolazine) ..... One tab. twice daily for chronic angina Altace 10 Mg Oral Capsule (Ramipril) ..... One tab. daily His updated medication list for this problem includes: Norvasc 10 Mg Oral Tablet (Amlodipine besylate) ..... One tab. daily Coreg 25 Mg Oral Tablet (Carvedilol) ..... One tab. twice daily Aspir-81 81 Mg Oral Tablet Delayed Release (Aspirin) ..... Once daily H gb: 13.9 (07/02/2015) HCT: 44.8 (07/02/2015) Platelets: 185.0 THOUSAND/UL (07/02/2015) B UN: 20.0 (07/02/2015) Creat: 0.8 (07/02/2015) Na+: 145.0 (07/02/2015) K+: 4.8 (07/02/2015) Cl: 102.0 (07/02/2015) Anion Gap: 11.0 (07/02/2015) Calcium: 9.7 (07/02/2015) TSH: 1.690 ?IU/ML (07/02/2015) T4 (total): 5.9 ??G/DL (07/02/2015) Doyle Monroy MD Cardiology: T he following medications were removed from the medication list: Ranexa 500 Mg Oral Tablet Extended Release 12 Hour (Ranolazine) ..... One tab. twice daily for chronic angina Altace 10 Mg Oral Capsule (Ramipril) ..... One tab. daily His updated medication list for this problem includes: Cozaar 25 Mg Oral Tablet (Losartan potassium) ..... One tab. daily Norvasc 10 Mg Oral Tablet (Amlodipine besylate) ..... One tab. daily Hydrochlorothiazide 25 Mg Oral Tablet (Hydrochlorothiazide) ..... Take one tab daily Coreg 25 Mg Oral Tablet (Carvedilol) ..... One tab. twice daily Aspir-81 81 Mg Oral Tablet Delayed Release (Aspirin) ..... Once daily Doyle Monroy MD Cardiology:will rx Doyle Monroy MD Cardiology:a1c in 6s Doyle grove MD Cardiology Doyle Monroy MD Cardiology:NEG VD WITH HIGH DD A ND NML B12 AND TSH Doyle Monroy MD Cardiology: l eft main with nml lv, had cabg, HAD STENTS AT [facility] AFTER, 4 MONTSH AFTER NEG NUC Doyle Monroy MD Cardiology: T he following medications were removed from the medication list: Altace 10 Mg Oral Capsule (Ramipril) ..... One tab. daily His updated medication list for this problem includes: Cozaar 25 Mg Oral Tablet (Losartan potassium) ..... One tab. daily Norvasc 10 Mg Oral Tablet (Amlodipine besylate) ..... One tab. daily Hydrochlorothiazide 25 Mg Oral Tablet (Hydrochlorothiazide) ..... Take one tab daily Coreg 25 Mg Oral Tablet (Carvedilol) ..... One tab. twice daily Aspir-81 81 Mg Oral Tablet Delayed Release (Aspirin) ..... Once daily BP today: 120/68 P rior BP: 140/90 (07/02/2015) Prior 10 Yr Risk Heart Disease: N/A (05/06/2015) Labs Reviewed: C reat: 0.8 (07/02/2015) Doyle Monroy MD Cardiology: T he following medications were removed from the medication list: Pravachol 40 Mg Oral Tablet (Pravastatin sodium) ..... Once daily His updated medication list for this problem includes: Lipitor 80 Mg Oral Tablet (Atorvastatin calcium) ..... One tab. daily Doyle Monroy MD Cardiology: o n rx H INSOMNIA TOO Doyle Monroy MD Cardiology:WILL TRY RANEXA AND T HEN ECP Doyle Monroy MD Cardiology:WILL SNELL MAY JUST BE D ECONSTONING Doyle Monroy MD Cardiology:WILL TRY DIET PILL Zapata diogenes Monroy MD Cardiology:NO TIME FOR REHAB Tony Monroy MD Cardiology:140/90 will increase rx Doyle Monroy MD Cardiology:Conclusio ns: 1 . Mild plaque with less than 50% stenosis of the internal carotid arteries bilaterally. 2 . Vertebral flow is antegrade bilaterally. Doyle Monroy MD Cardiology:Conclusio ns: 1 . Moderate pericardial effusion. Effusion is located : anteriorly. 2 . There is non-specific thickening of the mitral valve leaflets. Mild mitral valve regurgitation. 3. There is non-specific thickening of the tricuspid valve. There is mild tricuspid regurgitation. IVC is n ormal in size with normal respiratory response. Unable to adequately assess the RVSP. 4. Normal left ventricular systolic function. Normal left ventricular size. Normal left ventricular wall t hickness. There is E to A wave reversal consistent with impaired LV relaxation. Left ventricular e jection fraction is estimated at 60 %. 5 . Normal right ventricular size. Normal right ventricular systolic function. 6 . There is mild enlargement of the left atrium. Doyle Monroy MD Cardiology:will try diet pill la Buchanan MD Cardiology:on rx Doyle Santos Cardiology:left main with nml lv , had cabg Doyle Monroy MD Cardiology:ldl 90 on rx Doyle oh MD Cardiology Doyle Monroy MD Cardiology:6.2, will strat arline H boaz Monroy MD Date Name myocardial blood valery w (PET) Stress Cardiac PET-C T CXR- PA/Lat Kidney Ultrasound BASIC METABOLIC PANE L W/EGFR PROBNP, N TERMINAL RPR (MONITOR) W/REFL TITER Renal Artery Duplex Complete Echo Monitor - Telemetry (Mobile Cardiac) HEPATITIS PANEL Renal Artery Duplex Monitor - Telemetry (Mobile Cardiac) Complete Echo HEPATITIS PANEL Monitor - Telemetry (Mobile Cardiac) PROBNP, N TERMINAL Microalb/Creatinine Urine, Random PROTHROMBIN TIME WIT H INR LIPID PANEL CBC (INCLUDES DIFF/P LT) BASIC METABOLIC PANE L W/EGFR PROTHROMBIN TIME WIT H INR LIPID PANEL CBC (INCLUDES DIFF/P LT) BASIC METABOLIC PANE L W/EGFR PROBNP, N TERMINAL Microalb/Creatinine Urine, Random Holter Monitor 24 Hr Complete Echo Stress Cardiac PET-C T ZOLL HFMS (HrtFailrM ngmtSys) Microalb/Creatinine Urine, Random LIPID PANEL Lipoprotein (a) CRP, high sensitivit y PROBNP, N TERMINAL BASIC METABOLIC PANE L W/EGFR BASIC METABOLIC PANE L W/EGFR PROBNP, N TERMINAL Stress Cardiac PET-C T CRP, high sensitivit y LIPID PANEL Lipoprotein (a) Microalb/Creatinine Urine, Random Complete Echo Holter Monitor 24 Hr PROBNP, N TERMINAL Complete Echo BASIC METABOLIC PANE L W/EGFR IRON AND TOTAL IRON BINDING CAPACITY FERRITIN CBC (INCLUDES DIFF/P LT) Vitamin D, 25-Hydrox y COVID19 High Affinit y Antibodies (LC) LIPID PANEL Holter Monitor 24 Hr DLCO - 54978 FRC - 59500 FVC - 18215 HEMOGLOBIN A1c PROBNP, N TERMINAL Stress Regadenoson HEMOGLOBIN A1c PROBNP, N TERMINAL Complete Echo DLCO - 41362 FRC - 39617 FVC - 80641 Holter Monitor 24 Hr Sleep Study Home URINALYSIS, RANDOM, MICROALB/CREATININE Holter Monitor 24 Hr FOLATE, SERUM VITAMIN B12 IRON AND TOTAL IRON BINDING CAPACITY FERRITIN CBC (INCLUDES DIFF/P LT) Complete Echo Vitamin D, 25-Hydrox y DLCO - 92093 FRC - 19643 FVC - 27578 PROBNP, N TERMINAL BASIC METABOLIC PANE L W/EGFR D-DIMER, QUANTITATIV E STR - Nuclear TROPONIN I VITAMIN B12 CBC (INCLUDES DIFF/P LT) COMPREHENSIVE METABO LIC PANEL W/EGFR PROBNP, N TERMINAL DLCO - 87237 FRC - 96240 FVC - 50656 X-Ray, Chest, PA & L ateral THYROID PANEL WITH T SH, 3RD GENERATION STR - Routine CBC (INCLUDES DIFF/P LT) FERRITIN IRON AND TOTAL IRON BINDING CAPACITY Complete Echo Carotid Duplex Bilat eral VITAMIN D, 25-HYDROX Y, LC/MS/MS HISTORY OF PROCEDURES Procedure Date Procedure Name Provider Procedure Notes S tatus Complex e/m visit add on Doyle Monroy MD [08/25/2024 - sarah beth] APPROVED completed Complex e/m visit add on Doyle Monroy MD completed EKG Doyle Monroy MD complete d Holter, 24 or 48 Doyle Monroy MD co mpleted FVC / MVV with bronchodilator - 33506 Doyle Monroy MD completed FRC - 69045 Doyle Monroy MD complet ed SpO2 w/o 6min walk/titration Doyle Monroy MD completed DLCO - 12521 Doyle Monroy MD comple paola EKG Doyle Monroy MD complete d Regadenoson, 4 units Doyle Monroy MD completed Cardiolite, 2 units Doyle Monroy MD completed SPECT Images Doyle Monroy MD comple paola Stress EKG Doyle Monroy MD complete d FVC / MVV with bronchodilator - 49825 Doyle Monroy MD completed FRC - 04578 Doyle Monroy MD complet ed SpO2 w/o 6min walk/titration Doyle Monroy MD completed DLCO - 03761 Doyle Monroy MD comple paola EKG Doyle Monroy MD complete d Stress EKG Igor Ruiz MD complet ed Regadenoson, 4 units Igor Ruiz MD completed Cardiolite, 2 units Igor Ruiz MD completed SPECT Images Igor Ruiz MD compl eted EKG Doyle Monroy MD complete d SNOMED-CT: [id number] Current Medications Documented Doyle Monroy MD completed Stress EKG Igor Ruiz MD complet ed SNOMED-CT: [id number] Physical Exam, Performed: Pulse Exam of Foot Doyle Monroy MD completed SNOMED-CT: [id number] Current Medications Documented Doyle Monroy MD completed
--- OUTSIDE RECORDS SUMMARY | 2024-09-07 11:16 | XMS_ITS | Continuity of Care Document ---
Author Organization [facility]. If a dditional information is needed, contact Health Information Management at [phone] Address [address] [place] [address] Phone Care Team Providers Care Cryptozoologist Name Role Phone Unavailable Unavailable Unavailable Unavailable Unavailable Unavailable Problems Pain of knee region Onset:28-Jun-2023 Mina Wong MD Allergies and Adverse Reactions No Known Drug Allergies(Frederic rgy) Onset: 28-Jun-2023 Social History Smoking Status Never smoked tobacco Recorded: 28-Jun-2023
--- OUTSIDE RECORDS SUMMARY | 2024-09-07 11:16 | XMS_ITS | Clinical Summary ---
Author Organization [facility] Address [address] [place] [address] Care Team Providers Care Heating Technician Name Role Phone Abdullahi Wilson MD Primary Care Provider [phone] Source Comments [facility],non-owned Affiliates and Associated Physician Practices is amultiple site organization consisting of ambulatory clinics and hospital sitesin [place], [place], [place] and [place]. This disclosure is being madepursuant to the Care Everywhere program and may not contain all information available regarding this patient. Last updated 18.[facility] Allergies No known active allergies Medications * This document contains information received from the source organization and may not represent a complete record from that organization. * Be aware that medications may not be up to date on this document. Alwaysverify current medications with the patient. aspirin (ASPIRIN) 81 MG tablet Take 81 mg by mouth every morning Active carvedilol (COREG) 25 MG tablet Take 12.5 mg by mouth 2 times daily with morning and evening meal 7 Active citalopram (CELEXA) 40 MG tablet Take 40 mg by mouth once daily 7 Active hydroCHLOROthiaz amandeep (HYDRODIURIL) 25 MG tablet Take 25 mg by mouth once daily Active traZODone (DESYREL) 50 MG tablet Take 0.5-2 tablets by mouth nightly as needed for Insomnia 60 tablet 1 8 Active metFORMIN (GLUCOPHAGE) 1000 MG tablet Take 1 tablet by mouth 2 times daily with morning and evening meal 180 tablet 8 Active atorvastatin (LIPITOR) 80 MG tablet Take 1 tablet by mouth at bedtime 90 tablet 8 Active omeprazole (PRILOSEC) 20 MG capsule Take 1 capsule by mouth once daily 90 capsule 8 Active amLODIPine (NORVASC) 5 MG tablet Take 1 tablet by mouth once daily 90 tablet 3 8 Active isosorbide mononitrate CR 24hr (IMDUR) 30 MG tablet Take 1 tablet by mouth once daily 90 tablet 3 8 Active polyethylene glycol (GOLYTELY) 236 G solution Drink 1/2 of prep at 6pm the night before test. Finish the prep 6 hours before test. 1 bottles 8 Active Social History Tobacco Use Types Packs/Day Years Used Date Smoking Tobacco: Never Assessed Sex and Gender Information Value Date Recorded Sex Assigned at Not on file Legal Sex Male 6:03 AM MOVING PICTURE PRODUCER Gender Identity Not on file Sexual Orientation Not on file Last Filed Vital Signs Vital Sign Reading Time Taken Comments Blood Pressure 134/76 05/25/2017 3:25 PM MOVING PICTURE PRODUCER Pulse 75 05/25/2017 3:25 PM MOVING PICTURE PRODUCER Temperature 36.5 C (97.7 F) 05/25/2017 3:25 PM MOVING PICTURE [employer]ODUCER Respiratory Rate 24 07/24/2016 11:36 AM MOVING PICTURE PRODUCER Oxygen Saturation 96% 05/25/2017 3:25 PM MOVING PICTURE PRODUCER Inhaled Oxygen Concentration - - Weight 99.2 kg (218 lb 9.6 oz) 05/25/2017 3:25 P M [employer]OVING [employer]URE [employer]UCER Height 175.3 cm (5' 9 ) 05/03/2017 1:17 PM MOVING PICTURE [employer]ODUCER Body Mass Index 32.28 05/03/2017 1:17 PM MOVING PICTURE PRODUCER Plan of Treatment Health Maintenance Due Date Last Done Comments COLOGUARD (AGES 45-75) - COLON CA SCREENING 1954 COLON MONITORING 1954 COLONOSCOPY - COLON CA SCREENING 1954 CT COLONOGRAPHY - COLON CA SCREENING 1954 Colorectal Cancer Screening 1954 FIT - COLON CA SCREENING 1954 FLEX SIG - COLON CA SCREENING 1954 DTAP/TDAP/TD VACCINES (1 - Tdap) 1973 PNEUMOCOCCAL VACCINE 50+ (1 of 1 - PCV) 2004 ZOSTER VACCINE (1 of 2) 2004 DIABETES-SERUM CREATININE 07/24/20172016, 07/23/2016, 07/22/2016, Additional history exists DIABETES-FOOT EXAM WITH MONOFILAMENT 08/23/2017 DIABETES-HGB A1C 08/23/2017 07/22/2016, 02/2016, 10/15/2015, Additional history exists COVID-19 VACCINE (2023- season) 2024 DEPRESSION SCREENING 05/24/2024 DIABETES - URINE PROTEIN SCREENING 05/24/2024 11/02/2013 INFLUENZA VACCINE (Season Ended) 2025 02/21/2013, 02/23/2012 Respiratory Syncytial Virus (RSV) Vaccine Pt: or over 60 yrs (1 - 1-dose 75+ series) 2029 HEPATITIS C SCREENING Completed 09/15/2011 HEPATITIS B VACCINE Aged Out No longe r eligible based on patient's age to complete this topic HIB VACCINE Aged Out No longer eligi ble based on patient's age to complete this topic HPV VACCINE Aged Out No longer eligi ble based on patient's age to complete this topic MENINGOCOCCAL (Group B) VACCINE SHARED DECISION-MAKING Aged Out No longer eligible based on patient's age to complete this topic MENINGOCOCCAL GROUPS A/C/Y/W VACCINE Aged Out No longer eligible based on patient's age to complete this topic Procedures Procedure Name Priority Date/Time Associated Diagnosis Comments BASIC METABOLIC PANEL (CALCIUM TOTAL) Routine 07/24/2016 6:19 AM MOVING PICTURE PRODUCER HEMOGLOBIN A1C Routine 07/22/2016 8:54 PM MOVING PICTURE PRODUCER MICROALB/CREAT RATIO URINE RANDOM PANEL Timed 11/02/2013 8:17 AM CDT HEPATITIS SCREEN ACUTE Routine 09/15/2011 7:54 AM CDT from Last 3 Months or Most Recently Relevant to Health Maintenance Results * (ABNORMAL) BASIC METABOLIC PANEL (CALCIUM TOTAL) (07/24/2016 6:19 AM MOVING PICTURE PRODUCER) BUN 15 7 - 26 mg/dL [facility] Creatinine 1.1 0.6 - 1.2 mg/dL [facility] Sodium 139 136 - 145 mmol/L [facility] Potassium 4.5 3.5 - 4.5 mmol/L [facility] Chloride 98 98 - 107 mmol/L [facility] CO2 28 22 - 29 mmol/L [facility] Glucose 141(H) 70 - 115 mg/dL [facility] Calcium 9.2 8.4 - 10.2 mg/dL [facility] Anion Gap 18 8 - 18 [facility] BUN/Creatinine Ratio 14 7 - 23 [facility] Osmolality Calculated 291 270 - 300 mOsm/kg [facility] eGFR >60 >60 mL/min/1.7 3 m2 [facility] Blood specimen (specimen) BLOOD SPECIMEN / Unknown 07/24/2016 6:19 AM MOVING PICTURE [employer]ODUCER 07/24/2016 6:46 AM MOVING PICTURE PRODUCER us Historical Provider LAB - CHEMISTRY ORDERABLE S Final Result Performing Organization Address City/State/[facility] Co de Phone Number [address] [phone] * (ABNORMAL) HEMOGLOBIN A1C (07/22/2016 8:54 PM MOVING PICTURE PRODUCER) Hemoglobin A1c 7.0(H) 4.4 - 6.3 % [facility] Estimated Average Glucose 154 mg/dL [facility] Comment: HbA1c Interpretation: Treatment target values recommended by ADA and other clinical organizations should be used to evaluate metabolic control in patients. Treatment Target Values: Normal : < 5.7% Pre-diabetes: 5.7-6.4% Diabetes: Equal to or greater than 6.5% Reference: [place] [employer] Standards of Care in Diabetes -2014 In patients 70 years and older consider HbA1c target range of 7.0-7.5% Reference: Diabetes Mellitus in Older People: Position Statement on behalf of the International Association of Gerontology and Geriatrics (IAGG), the Diabetes Working Alliance Party for Older People (EDWPOP), and the International Task Force of Experts in Diabetes. Juan Ness et al. J [place] [employer]. 2012 Test results diagnostic of diabetes should be repeated for confirmation. The Tosoh G8 assay for the measurement of HbA1c is a National Glycohemoglobin Standardization Program (NGSP)certified method. Results for patients with HbE disease should be interpreted with caution as this hemoglobinopathy has been shown to interfere with the Tosoh G8 assay. Blood specimen (specimen) BLOOD SPECIMEN / Unknown 07/22/2016 8:54 PM MOVING PICTURE PRODUCER 07/22/2016 8:59 PM MOVING PICTURE PRODUCER Radha Parkinson MD LAB - CHEMISTRY ORDERABLE S Final Result [address] [phone] * MICROALB/CREAT RATIO URINE RANDOM PANEL (11/02/2013 8:17 AM CDT) Pathologist [facility] Albumin Random Urine 22.0 Not Established mcg/mL [facility] Creatinine Urine 167 Not Established mg/dL [facility] Urine Albumin/Creati nine Ratio 13 <30 mg/g [facility] Urine specimen (specimen) URINE / Unknown 11/02/2013 8:17 AM CDT 11/02/2013 9:46 AM CDT Abdullahi Wilson MD LAB - URINE CHEMISTRY ORDERA BLES Final Result Performing Organization Address City/[facility] Co de Phone Number [address] [phone] * HEPATITIS SCREEN ACUTE (09/15/2011 7:54 AM CDT) Pathologist [facility] Hepatitis A Virus Antibody IgM NEGATIVE NEGATIVE [facility] Hepatitis C Antibody NEGATIVE NEGATIVE [facility] Comment: Anti-HCV screen indicates no serologic evidence of past or current infection with Hepatitis C Virus. Patients with unexplained liver disease who are immunocompromised or suspected of having acute Hepatitis C infection may benefit from Nucleic Acid Test (EDGARD) for Hepatitis C Viral RNA to confirm Hepatitis C status. Hepatitis B Virus Surface Antigen NONREACTIVE NONREACTIVE [facility] Hepatitis B Core Virus Antibody IgM NEGATIVE NEGATIVE [facility] 09/15/2011 7:54 AM CDT 09/15/2011 9:24 AM CDT us Historical Provider LAB - CHEMISTRY ORDERABLE S Final Result [facility] [address] [place] [address] from Last 3 Months or Most Recently Relevant to Health Maintenance Insurance [employer] Care Teams Heating Technician Relationship Specialty Start Date End Date Abdullahi Wilson MD PCP - General 10/25/17
[2024-09-07 19:10] LABS: Anion Gap 9 mmol/L (4-12); Blood Urea Nitrogen 22 mg/dL (9-20); Calcium 9.3 mg/dL (8.4-10.2); Carbon Dioxide 29 mmol/L (22-30); Chloride 101 mmol/L (98-107); Estimated Glomerular Filt Rate > 60; Glucose 133 mg/dL (65-110); Sodium 139 mmol/L (137-145)
[2024-09-07 19:15] LABS: NT Pro B Type Natriuretic Pept 625 pg/mL (19.9-100)
[2024-09-07 20:55] LABS: Syphilis IgG/IgM Antibody Negative (Negative)
== END 2024-09-07 10:22 | disposition home or self-care (01) ==
PROVIDERS: PCP Nurse Practitioner Adult Health; Visit Provider Internal Medicine Cardiovascular Disease
DX: D64.9 Anemia, unspecified (principal); E78.1 Pure hyperglyceridemia; J11.1 Influenza due to unidentified influenza virus with other respiratory manifestations; K44.9 Diaphragmatic hernia without obstruction or gangrene; K57.30 Diverticulosis of large intestine without perforation or abscess without bleeding; N18.2 Chronic kidney disease, stage 2 (mild); N28.1 Cyst of kidney, acquired; N40.0 Benign prostatic hyperplasia without lower urinary tract symptoms; R41.3 Other amnesia; R79.89 Other specified abnormal findings of blood chemistry; I50.32 Chronic diastolic (congestive) heart failure; Z11.3 Encounter for screening for infections with a predominantly sexual mode of transmission
CPT/HCPCS: 36415; 80048; 83880; 86593

== ENCOUNTER 2025-03-14 10:59 | Outpatient (CLI) | payer OTHER, SELFPAY ==
[2025-03-14 18:38] LABS: Iron 87 ug/dL (49-181)
[2025-03-14 18:49] LABS: Percent Iron Saturation 28 % (20-50)
[2025-03-14 19:05] LABS: Add Urine Microscopic? YES; Appearance Urine Clear (Clear); Glucose Urine UA 3+ mg/dL (Negative); Leukocyte Esterase Ur Negative LEU/UL (Negative); Nitrate Urine Negative (Negative); Non Pathogenic Casts 0-2; Specific Grav Ur 1.029 (1.001-1.035)
[2025-03-14 19:09] LABS: Prostate Specific Antigen 2.4 ng/mL (< OR = 4.0)
[2025-03-14 19:14] LABS: Ferritin 61.50 ng/mL (11.1-264)
== END 2025-03-14 11:00 | disposition home or self-care (01) ==
LOC: ANHBWCLAB 11:01
PROVIDERS: PCP Nurse Practitioner Adult Health; Visit Provider Physician Assistant
DX: Z12.5 Encounter for screening for malignant neoplasm of prostate (principal); R39.9 Unspecified symptoms and signs involving the genitourinary system; D64.9 Anemia, unspecified
CPT/HCPCS: 36415; 81001; 82728; 83540; 83550; 84153; G0103

== ENCOUNTER 2025-04-04 09:28 | Outpatient (CLI) | payer OTHER, SELFPAY ==
--- OUTSIDE RECORDS SUMMARY | 2025-04-04 10:26 | XMS_ITS | Clinical Summary ---
Author Organization [facility] Medical Office Building B Address [address] [place] [address] Care Team Providers Care Changeover Operator Name Role Phone Dimitri Keith MD Primary Care Provider [phone] Caleb Mazariegos NP Unavailable [phone] Antwan Monroy MD Unavailable [phone] Allergies No known active allergies Medications [...] by mouth Active memantine (NAMENDA) 10 mg tabletIndicatio ns:Moderate to Severe Alzheimer's Type Dementia Take 1 tablet (10 mg total) by mouth 2 (two) times a day Active aspirin 81 mg enteric coated tabletIndicatio ns:prevention of thrombosis Take 1 tablet (81 mg total) by mouth 2 (two) times a day 60 tablet 4 Active ascorbic acid (VITAMIN C) 500 mg tablet,chewable [...] Active polyethylene glycol (MIRALAX) 17 gram/dose bulk powderIndicatio ns:constipation Take 17 g by mouth daily as needed (constipation) 238 g 4 Active blood glucose diagnostic (glucose blood) strip Check blood sugar daily 100 each 5 4 Active atorvastatin (LIPITOR) 80 mg tablet [...] 2 (two) times a day 5 Active naltrexone (DEPADE) 50 mg tablet Take 1 tablet (50 mg total) by mouth daily Active semaglutide (OZEMPIC) 0.25 mg or 0.5 mg (2 mg/3 mL) pen injector injection Inject 0.25 mg under the skin once a week 3 mL 4 5 Active Jardiance 25 mg tablet TAKE 1 TABLET (25 MG TOTAL) BY MOUTH DAILY. 30 tablet 5 5 Active citalopram (CeleXA) 40 mg tablet 1 tablet (40 mg total) daily 2 Active rOPINIRole (REQUIP) 1 mg tablet Take 1 tablet (1 mg total) by mouth nightly 5 Active Active Problems Problem Noted Date Diagnosed Date Dyslipidemia 01/13/2024 Chest pain 01/12/2024 Elevated troponin 01/12/2024 S/P coronary artery stent placement 01/12/2024 Hx of CABG 01/12/2024 Increase in serum creatinine from prior measurem ent 01/12/2024 Primary osteoarthritis of right knee 08/05/2023 Personal history of colonic polyps 09/17/2022 Encounter for screening colonoscopy 09/17/2022 Foreign body of right ear 04/28/2021 Assessment & Plan (04/28/2021 8:47 AM PRACTICE MANAGEMENT CONSULTANT): Avoid ear cleaning techniques Avoid water to ears Continue Hearing aids Sensorineural hearing loss (SNHL) of both ears 1 06/29/2020 Assessment & Plan (04/28/2021 8:47 AM PRACTICE MANAGEMENT CONSULTANT): Continue Hearing aids 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 2vd in 2000 on cath at [facility]. Normal stress echo 2009 CABG 03/2015 - scanned report in chart PCI FURNACE COMBUSTION ANALYST to RCA 11/11/2015 Hyperlipemia 01/19/2008 Testicular hypogonadism 01/19/2008 Encounters Date Type Department Care Team Description 03/07/2025 2:25 PM CDT - 03/07/2025 11:59 PM CDT Hospital Encounter [facility] [address] [place] [address] A, [address] [place] [address] Tone Singh MD Chronic left shoulder pain (Primary Dx) Discharge Disposition: Discharge to home or self care 02/21/2025 Telephone [facility] Bld[facility] A, [address] [place] [address] Tone Singh MD 01/24/2025 Orders Only [facility] [address] [place] [id number] Sukhjinder Kaufman PA Primary osteoarthritis of right shoulder (Primary Dx); Primary osteoarthritis of left shoulder; Osteoarthritis of bilateral glenohumeral joints; Osteoarthritis of AC (acromioclavicular) joints, bilateral from Last 3 Months Surgical History Surgery Date Site/Laterality Comments CARDIAC SURGERY CORONARY ARTERY BYPASS GRAFT 2014 3 vessels JOINT REPLACEMENT Left TKA KNEE SURGERY 05/11/2017 left knee CARDIAC STENT PLACEMENT 3 stents Medical History Medical History Date Comments Hiatal hernia GERD (gastroesophageal reflux disease) Hypertension Hypercholesteremia Diabetes mellitus Type 2 diabetes mellitus Sleep apnea Family History Medical History Relation Name Comments Gout Other Heart disease Other Hypertension Other Relation Name Status Comments Other Social History Tobacco Use Types Packs/Day Years Used Date Smoking Tobacco: Former Cigarettes Q uit: 1967 Smokeless Tobacco: Never Tobacco Cessation:Counseling Given: Not Answered Alcohol Use Standard Drinks/Week Comments Yes 0 (1 standard drink = 0.6 oz pur e alcohol) OCCASIONAL [facility] Utilities Answer Date Recorded In the past 12 months has [employer], gas, oil, or water [employer] threatened to shut off services in your home? No 01/13/2024 Social Connection and Isolation Panel Answer Date Recorded In a typical week, how many times do you talk on the phone with family, friends, or neighbors? More than three times a week 01/13/2024 How often do you get togethe r with friends or relatives? More than three times a week 01/13/2024 How often do you attend chur ch or congregational services? More than 4 times per year 01/13/2024 Do you belong to any clubs o r organizations such as sabianism groups, unions, fraternal or athletic groups, or [...] and heating? Not hard at all 01/13/2024 PHQ-2 Answer Date Recorded PHQ-2 Total Score (If total score is 3 or more points, staff should administer the PHQ-9) 0 03/07/2025 Hunger Vital Sign Answer Date Recorded Within [...] things needed for daily living? No 01/13/2024 PHQ-9 Answer Date Recorded PHQ-9 Total Score 4 03/07/2025 Housing Stability Vital Sign Answer Martin e Recorded In the last 12 months, was t here a time when you were not able to pay the mortgage or rent on time? No 01/13/2024 In the past 12 months, how m any times have you moved where you were living? 0 01/13/2024 At any time in the past 12 m [facility], were you homeless or living in a [facility] (including now)? No 01/13/2024 Personal Safety Answer Date Recorded Have you ever been in or are you currently in a harmful physical or emotional relationship or is someone making you feel afraid or unsafe? Denies 01/11/2024 Sex and Gender Information Value Date Recorded Sex Assigned at Not on file Legal Sex Male 4:37 PM PRACTICE MANAGEMENT CONSULTANT Gender Identity Not on file Sexual Orientation Straight 04/21/2021 7: 57 AM PRACTICE MANAGEMENT CONSULTANT Last Filed Vital Signs Vital Sign Reading Time Taken Comments Blood Pressure 158/91 03/07/2025 2:53 PM CDT Pulse 60 03/07/2025 2:53 PM CDT Temperature 36.9 C (98.5 F) 01/14/2024 11:24 AM CDT Respiratory Rate 16 03/07/2025 2:53 PM CDT Oxygen Saturation 95% 03/07/2025 2:53 PM CDT Inhaled Oxygen Concentration - - Weight 91.5 kg (201 lb 11.2 oz) 025 10:46 AM CDT Height 175.3 cm (5' 9) 12/19/2024 10:4 6 AM CDT Body Mass Index 29.79 12/19/2024 10:46 AM CDT Plan of Treatment Health Maintenance Due Date Last Done Comments Hepatitis C Screening 1955 Hepatitis B Screening 1972 Well Visit 65+ 08/18/2019 Zoster Vaccine (2 of 3) 04/14/2021 02/17/2021, 03/20 Pneumococcal vaccine 65+ (2 of 2 - PCV) 02/17/2022 02/17/2021, 02/11/2011 Dilated Eye Exam 06/23/2024 06/23/2023 Lipid Panel 01/11/2025 01/12/2024, 11/23, 07/05/2015, Additional history exists Fall Risk Assessment 01/13/2025 01/14/2024 Covid-19 Vaccine (2 - 2024-2 6 season) 2025 12/04/2020 Influenza Vaccine (#1) 2025 3, 02/23/2012, 02/11/2011 Foot Exam 03/14/2025 03/14/2024 Albumin Creatinine Ratio, Urine 05/09/2025 4, 12/22/2023 eGFR 05/09/2025 05/09/2024, 12/23, 01/13/2024, Additional history exists Hemoglobin A1C 06/21/2025 12/19/2024, 04/2 01/2025, 06/20/2024, Additional history exists DTaP/Tdap/Td Vaccine (2 - Td or Tdap) 10/14/2025 10/15/2015, 10/22/2005 Depression Screening 03/07/2026 03/07/2025, 03/07/20 25 Colon Cancer Screening-Colonoscopy 09/25/2032 09/25/2022 Abdominal Aortic Aneurysm (A AA) Screen Completed 08/29/2019, 04/05/2014 Colon Cancer Screening-CT Colonography Discontinued 09/25/2022 Colon Cancer Screening-DNA Stool Discontinued 09/26/19 23 Colon Cancer Screening-FIT Discontinued 09/25/2022 Colon Cancer Screening-Sigmoidoscopy Discontinued 09/25/2022 Medical Devices Implanted Type Area Picking Table Worker Device Identifier Shelf Expiration Date Model / Serial / Lot Cement Bone Smartset Gentamicin 40 Gm High Viscosity - [id number] Implanted:Qty: 1 on 05/11/2017 by Kenyon Ayon MD at [facility] Left: Knee [employer] 09/20/2018 [id number] / / [id number] Cement Bone Smartset Gentamicin 40 Gm High Viscosity - [id number] Implanted:Qty: 1 on 05/11/2017 by Kenyon Ayon MD at [facility] Left: Knee [employer] 10/21/2018 [id number] / / [id number] Stem Femoral Attune L50 Mm Od14 Mm Knee Cemented Revision Sterile - [id number] Implanted:Qty: 1 on 05/11/2017 by Kenyon Ayon MD at [facility] Left: Knee [employer] 03/23/2027 [id number] / / [id number] Bsplt Tibial Attune 7 Rev Cmnt Fix Brng Strl Knee System - [id number] Implanted:Qty: 1 on 05/11/2017 by Kenyon Ayon MD at [facility] Left: Knee [employer] 11/20/2026 [id number] / / [id number] Component Femoral Attune 7 Knee Left Cemented Posterior Stabilize Sterile - [id number] Implanted:Qty: 1 on 05/11/2017 by Kenyon Ayon MD at [facility] Left: Knee [employer] 01/21/2027 [id number] / / [id number] Dome Patellar Attune Aox H41 Mm Knee Cemented Medialize Sterile - [id number] Implanted:Qty: 1 on 05/11/2017 by Kenyon Ayon MD at [facility] Left: Knee [employer] 01/21/2022 [id number] / / [id number] Insert Tibial Attune Aox 7 H6 Mm Knee Posterior Stabilize Fix Bearing Sterile - [id number] Implanted:Qty: 1 on 05/11/2017 by Kenyon Ayon MD at [facility] Left: Knee [employer] 01/21/2022 [id number] / / [id number] [employer] Attune Fb Tib Base Sz 7 Por [id number] - [id number] Implanted:Qty: 1 on 08/10/2023 by Kenyon Ayon MD at [facility] Right: Knee [employer] [id number] 06/23/2033 [id number] / / [id number] [employer] Attune Cruciate Retain Cementless Knee Right 7 Component Femoral [id number] - [id number] Implanted:Qty: 1 on 08/10/2023 by Kenyon Ayon MD at [facility] Right: Knee [employer] [id number] 06/23/2033 [id number] / / [id number] [employer] Insert Tibial Knee Fixed Rm Posterior Stabilized Attune 6mm Size 7 Polyethylene [id number] - [id number] Implanted:Qty: 1 on 08/10/2023 by Kenyon Ayon MD at [facility] Right: Knee [employer] [id number] 12/21/2030 [id number] / / [id number] Medtronic Card Vasc Surgery 2.50 X 15mm [place] Rx Coronary Stent [id number] - [id number] Implanted:Qty: 1 on 01/13/2024 by Liam Mack MD at [facility] Med[employer]onic Card Vasc Surgery 10/07/2026 [id number] / / [id number] Procedures Procedure Name Priority Date/Time Associated Diagnosis Comments POCT HEMOGLOBIN A1C Routine 12/19/2024 1 1:09 AM CDT Type 2 diabetes mellitus with other specified complication, without long-term current use of insulin (HCC) EGFR Routine 05/09/2024 10:40 AM PRACTICE MANAGEMENT CONSULTANT ALBUMIN CREATININE RATIO, URINE Routine 05/09/2024 10:40 AM PRACTICE MANAGEMENT CONSULTANT LIPID PANEL Routine 01/12/2024 4:48 AM CDT DIABETIC EYE EXAM Routine 06/23/2023 COLONOSCOPY 09/25/2022 8:[address] CHEST ABDOMEN PELVIS W CONTRAST ED 08/29/2019 5:21 PM CDT from Last 3 Months or Most Recently Relevant to Health Maintenance Results * (ABNORMAL) POCT hemoglobin A1c (12/19/2024 11:09 AM CDT) Hemoglobin A1C, POC 6.6(A) 4.0 - 5.6 % Blood 12/19/2024 11:0 9 AM CDT Oren Peguero DO POINT OF CARE TEST ORDERABL ES Final Result * (ABNORMAL) eGFR (05/09/2024 10:40 AM PRACTICE MANAGEMENT CONSULTANT) eGFR 53(L) >=60 mL/min/1. 73 m2 Comment: [...] reviewed 2021. Blood 05/09/2024 10:4 0 AM PRACTICE MANAGEMENT CONSULTANT 05/09/2024 9:03 PM PRACTICE MANAGEMENT CONSULTANT us Antwan Monroy MD LAB BLOOD ORDERABLES Final Resu lt Performing Organization Address [facility] de Phone Number STAN [address] [address] [employer] [place] [address] * (ABNORMAL) Albumin Creatinine Ratio, Urine (05/09/2024 10:40 AM PRACTICE MANAGEMENT CONSULTANT) Albumin Ur 130.3 mg/L Comment: Interpretive Data No reference range established. Current interpretive data was last revised 2018. Creatinine Ur 108.3 mg/dL STAN Comment: Interpretive Data No reference range established. Current interpretive data was last revised 2018. Albumin Creatinine Ratio, Ur 120(H) 1 - 29 mg/g STAN Urine 05/09/2024 10:4 0 AM PRACTICE MANAGEMENT CONSULTANT 05/09/2024 8:58 PM PRACTICE MANAGEMENT CONSULTANT us Antwan Monroy MD LAB URINE ORDERABLES Final Resu lt Performing Organization Address [facility] de Phone Number STAN [address] [address] [place] [address] * (ABNORMAL) Lipid panel (01/12/2024 4:48 AM [...] last revised on 2018. Chol/HDL ratio 4 CERMARCELA Blood 01/12/2024 4:48 AM CDT 01/12/2024 6:53 AM CDT Elliott Helton MD LAB BLOOD ORDERABLES F inal Result STAN [address] [facility] Department [place] [address] * Diabetic Eye Exam (06/23/2023) us Historical Provider HEALTH MAINTENANCE Final Result * COLONOSCOPY (09/25/2022 8:52 AM CDT) Anatomical Region Laterality Modality Other Narrative Procedure Note Deep Dawson MD - 09/25/2022 8:52 AM CDT [facility] Patient Name: Henrique Murray Procedure Date: 09/25/2022 8:52 AM Date of : 1955 Admit Type: Outpatient Age: 67 Gender: Male Attending MD: Deep Dawson M.D. Room: [facility] ENDOSCOPY ROOM 2 Note Status: Finalized Patient [...] scope was passed under direct vision. TheColonoscope [id number] was introduced through the anus and advanced [...] malignant neoplasm of colon CPT copyright 2020 [employer]. All rights reserved. The codes documented in this report are preliminary and upon senior java programmer reviewmay be revised to meet current compliance requirements. Recognized by the [employer] for promoting quality in endoscopy Deep Dawson MD ENDOSCOPY PROCEDURES Final Re sult * CT Chest Abdomen Pelvis W Contrast (08/29/2019 5:21 PM CDT) Anatomical Region Laterality Modality Body N/A Computed Tomogra phy 08/29/2019 5:04 PM CDT Narrative 08/29/2019 6:23 PM CDT [facility] Imaging Result Name: HENRIQUE MURRAY Ordering Phys: CALEB EPSTEIN Age: 64 Date of : 1955 Accession Number: [id number] Date of Service: 08/29/2019 Gender: M EXAM [...] These findings were discussed with Dr. Caleb Epstein by Dr. Abreu At 6:16 pm central standard time on 08/29/2019. THIS IS AN ELECTRONICALLY VERIFIED FINAL REPORT 08/29/2019 6:19 PM - Electronically signed by Shane Abreu : Report ID: [id number] Reading Location: [id number] Procedure Note Shane Abreu MD - 08/29/2019 [facility] Imaging Result Name: HENRIQUE MURRAY Ordering Phys: CALEB EPSTEIN Age: 64 Date of : 1955 Accession Number: [id number] Date of Service: 08/29/2019 Gender: M EXAM [...] MUSCULOSKELETAL CHEST: Acute minimally displaced fracture posterior [id number] rib. Acute nondisplaced fracture posterior right 12th [...] These findings were discussed with Dr. Caleb Epstein by Dr. Abreu At6:16 pm central standard time on 08/29/2019. THIS IS AN ELECTRONICALLY VERIFIED FINAL REPORT 08/29/2019 6:19 PM - Electronically signed by Shane Abreu : Report ID: [id number] Reading Location: [id number] Caleb Epstein MD IMG CT PROCEDURES Final Result from Last 3 Months or Most Recently Relevant to Health Maintenance Insurance [id number] [place] [address] [facility] Member Subscriber Plan / Payer (Ef fective 2022-Present) Name:Henrique Murray Relation to Subscriber:Self Name:Henrique Murray Payer ID:[id number] (NAIC) Type:MEDICARE RISK OTHER Address: [address] [facility] Advance Directives For more information, please contact: [phone] * Full Code (Latest Code Status on [...] 5:03 PM 05/13/2017 8:01 PM Care Teams Changeover Operator Relationship Specialty Start Date End Date Dimitri Keith MD PCP - General Family Practice 04/28/21 Caleb Mazariegos NP [address] [place] [address] [address] [place] [id number] Nurse Practitioner Orthopedic Surgery 08/11/23 Antwan Monroy MD [address] [facility] [address] [place] [address] Consulting Physician Cardiology 01/14/24
--- OUTSIDE RECORDS SUMMARY | 2025-04-04 10:26 | XMS_ITS | Clinical Summary ---
Author Organization [facility] [employer] Address [address] [place] [address] Care Team Providers Care Summer Intern Name Role Phone Abdullahi Wilson MD Primary Care Provider [phone] Source Comments [facility] [employer],non-owned Affiliates and Associated Physician Practices is amultiple site organization consisting of ambulatory clinics and hospital sitesin [place], [place], [place] and [place]. This disclosure is being madepursuant to the Care Everywhere program and may not contain all information available regarding this patient. Last updated 18.[facility] [employer] Allergies No known active allergies Medications * [...] on file Legal Sex Male 6:03 AM SKIP LOCATOR Gender Identity Not on file Sexual Orientation Not on file Last Filed Vital Signs Vital Sign Reading Time Taken Comments Blood Pressure 134/76 05/25/2017 3:25 PM SKIP LOCATOR Pulse 75 05/25/2017 3:25 PM SKIP LOCATOR Temperature 36.5 C (97.7 F) 05/25/2017 3:25 PM SKIP LOCATOR Respiratory Rate 24 07/24/2016 11:36 AM SKIP LOCATOR Oxygen Saturation 96% 05/25/2017 3:25 PM SKIP LOCATOR Inhaled Oxygen Concentration - - Weight 99.2 kg (218 lb 9.6 oz) 05/25/2017 3:25 P M SKIP LOCATOR Height 175.3 cm (5' 9) 05/03/2017 1:17 PM SKIP LOCATOR Body Mass Index 32.28 05/03/2017 1:17 PM SKIP LOCATOR Plan of Treatment Health Maintenance Due Date [...] 08/23/2017 07/22/2016, 02/2016, 10/15/2015, Additional history exists DEPRESSION SCREENING 05/24/2024 DIABETES - URINE PROTEIN SCREENING 05/24/2024 11/02/2013 COVID-19 VACCINE ( season) 2025 INFLUENZA VACCINE (#1) 2025 02/21/2013, 2011 Respiratory Syncytial Virus (RSV) Vaccine Pt: or [...] PANEL (CALCIUM TOTAL) Routine 07/24/2016 6:19 AM SKIP LOCATOR HEMOGLOBIN A1C Routine 07/22/2016 8:54 PM SKIP LOCATOR MICROALB/CREAT RATIO URINE RANDOM PANEL Timed 11/02/2013 8:17 AM CDT HEPATITIS SCREEN ACUTE Routine 09/15/2011 7:54 AM CDT from Last 3 Months or Most Recently Relevant to Health Maintenance Results * (ABNORMAL) BASIC METABOLIC PANEL (CALCIUM TOTAL) (07/24/2016 6:19 AM SKIP LOCATOR) BUN 15 7 - 26 mg/dL [facility] Creatinine 1.1 0.6 - 1.2 mg/dL [facility] Sodium 139 136 - 145 mmol/L [facility] Potassium 4.5 3.5 - 4.5 mmol/L [facility] Chloride 98 98 - 107 mmol/L [facility] CO2 28 22 - 29 mmol/L [facility] Glucose 141(H) 70 - 115 mg/dL [facility] Calcium 9.2 8.4 - 10.2 mg/dL [facility] Anion Gap 18 8 - 18 [facility] BUN/Creatinine Ratio 14 7 - 23 [facility] Osmolality Calculated 291 270 - 300 mOsm/kg [facility] eGFR >60 >60 mL/min/1.7 3 m2 [facility] Blood specimen (specimen) BLOOD SPECIMEN / Unknown 07/24/2016 6:19 AM SKIP LOCATOR 07/24/2016 6:46 AM SKIP LOCATOR us Historical Provider LAB - CHEMISTRY ORDERABLE S Final Result Performing Organization Address City/State/[facility] Co de Phone Number [address] [phone] * (ABNORMAL) HEMOGLOBIN A1C (07/22/2016 8:54 PM SKIP LOCATOR) Hemoglobin A1c 7.0(H) 4.4 - 6.3 % [facility] Estimated Average Glucose 154 mg/dL [facility] Comment: HbA1c Interpretation: Treatment target values recommended by ADA and other clinical organizations should be used to evaluate metabolic control in patients. Treatment Target Values: Normal : < 5.7% Pre-diabetes: 5.7-6.4% Diabetes: Equal to or greater than 6.5% Reference: [place] [employer] Standards of Care in Diabetes -2014 In patients 70 years and older consider HbA1c target range of 7.0-7.5% Reference: Diabetes Mellitus in Older People: Position Statement on behalf of the International Association of Gerontology and Geriatrics (IAGG), the Diabetes Working Democrat for Older People (EDWPOP), and the International Task Force of Experts in Diabetes. Juan Ness et al. J [place] [employer]. 2012 Test results diagnostic [...] BLOOD SPECIMEN / Unknown 07/22/2016 8:54 PM SKIP LOCATOR 07/22/2016 8:59 PM SKIP LOCATOR Radha Parkinson MD LAB - CHEMISTRY ORDERABLE S Final Result [address] [phone] * MICROALB/CREAT RATIO URINE RANDOM PANEL (11/02/2013 8:17 AM CDT) Pathologist [facility] Albumin Random Urine 22.0 Not Established mcg/mL [facility] Creatinine Urine 167 Not Established mg/dL [facility] Urine Albumin/Creati nine Ratio 13 <30 mg/g [facility] Urine specimen (specimen) URINE / Unknown 11/02/2013 8:17 AM CDT 11/02/2013 9:46 AM CDT Abdullahi Wilson MD LAB - URINE CHEMISTRY ORDERA BLES Final Result Performing Organization Address City/[facility] Co de Phone Number [address] [phone] * HEPATITIS SCREEN ACUTE (09/15/2011 7:54 AM CDT) Pathologist [facility] Hepatitis A Virus Antibody IgM NEGATIVE NEGATIVE [facility] Hepatitis C Antibody NEGATIVE NEGATIVE [facility] Comment: Anti-HCV screen indicates no serologic evidence of past or current infection with Hepatitis C Virus. Patients with unexplained liver disease who are immunocompromised or suspected of having acute Hepatitis C infection may benefit from Nucleic Acid Test (EDGARD) for Hepatitis C Viral RNA to confirm Hepatitis C status. Hepatitis B Virus Surface Antigen NONREACTIVE NONREACTIVE [facility] Hepatitis B Core Virus Antibody IgM NEGATIVE NEGATIVE [facility] 09/15/2011 7:54 AM CDT 09/15/2011 9:24 AM CDT us Historical Provider LAB - CHEMISTRY ORDERABLE S Final Result [facility] [address] [place] [address] from Last 3 Months or Most Recently Relevant to Health Maintenance Insurance [employer] Care Teams Summer Intern Relationship Specialty Start Date End Date Abdullahi Wilson MD PCP - General 10/25/17
--- NOTE | 2025-04-30 18:27 | WPDSLEEPSTUD ---
Sleep Study Date of Study: 04/04/25 Ordering Provider: CLEMENTINE Storm Interpreting Physician: Pearl Lucero MD Sleep Study Type: CPAP Titration Height: 1.75 m Weight: 91.172 kg Body Mass Index: 29.7 Neck Circumference (inches): 16 [place]: 3 Reason for Sleep Study The patient has lost over 100 lb since his last sleep study, went to [facility] for gastric sleeve surgery. He is now being re-titrated. Sleep History Henrique Murray is a 69-year-old man with known obstructive sleep apnea, had a gastric bypass with 100 lb weight loss 12 years ago. He is having more problems with sleep, and is having a repeat titration. He developed insomnia over the last 5+ years and his legs are causing more problems with his sleep. He has had difficulty falling asleep and staying asleep for 25 years and is getting worse. He has arthritis, several knee replacements, screws and plate in the right ankle and finch 1976. Hypertension, coronary artery disease with history of CABG and 8 stents, diabetes mellitus, acid reflux. He never awakens from sleep feeling short of breath. He never wakes at night with heartburn, belching or coughing.??He never snores, never snores loudly enough that others complain. He frequently has trouble sleeping when he has a cold. He never wakes up gasping for breath during the night. He rarely has breathing problems at night observed by others. He never sweats excessively at night. He rarely notices his heart pounding or beating irregularly during the night. He rarely falls asleep during the day. He falls asleep involuntarily, never falls asleep while driving. He never experiences loss of muscle tone with strong emotion. He never has daytime difficulty at work due to excessive sleepiness. He never feels paralyzed on waking or falling asleep. He never experiences vivid dreams upon waking or falling asleep. He never feels afraid of going to sleep. He never has nightmares. He occasionally recalls his dreams. He constantly has thoughts racing through his mind. He never feels sad or depressed. He never feels anxiety. He constantly notices parts of his body jerk. He constantly kicks during the night. He constantly feels crawling or aching feelings in his legs. He rarely feels leg pain at night. He never has morning jaw pain, occasionally grinds his teeth at night. He constantly feels bothered by pain during the day, occasionally is awakened by pain during the night. He occasionally wakes up feeling stiff in the morning, and he occasionally wakes feeling sore or achy. He occasionally awakens with pain in his neck, spine, or joints. Normal bedtime is 10:00 p.m., falling asleep within 1-6 hours, waking between 4 and 5 times at night, staying awake for 30 minutes but sometimes may stay awake for several hours before waking for the day. He often wakes at 3:00 a.m.. He may try changing position during the night to return to sleep. He maintains the same schedule on weekends. He estimates getting between 4 and 7 hours of sleep. He does not generally take naps in a short nap lasting 10-15 minutes is not refreshing. He is usually drowsy for 2 hours after waking. He feels better in the afternoon compared to other times of day. Habits:??Tobacco: None Caffeine: 1 coffee, 1 soda daily Alcohol: 2 beers daily Recreational substances: none PMFSH Past Medical History Medical History (Updated 05/01/25 @ 13:39 by Pearl Lucero MD) GERD (gastroesophageal reflux disease) Controlled type 2 diabetes mellitus without complication Hypogonadism Essential hypertension Chronic insomnia CAD (coronary artery disease) Obstructive sleep apnea syndrome in adult Surgical History Surgical History S/P triple vessel bypass History of knee replacement Family History Family History Father Family history of cardiovascular disease Mother Family history of cardiovascular disease Social History Social History Social History: former smoker Smoking packs per day: 1 Smoking cigarettes per day: 20.0 Years smoked: 10 Smoking pack-years: 10.00 Smoking status: Former smoker Tobacco type: cigarettes Second hand tobacco smoke exposure: No Smoking end date: 05/24/83 Alcohol intake: current Drinks per week: 5 Lack of Transportation: No Lack of Food: Never True Current Housing: I Have Housing Concerned About Future Housing: No Difficulty Paying Gas/Electric Bills: No Difficulty Paying for Meds: No Currently Unemployed: No Education: Associate Degree Difficulty w/ Childcare or Family Care: No Living arrangements: with family Medications Home Medications ?Medication ?Instructions ?Recorded ?Confirmed ?Type atorvastatin 80 mg tablet 80 mg PO DAILY #90 tabs 09/08/22 04/10/25 Rx carvedilol 12.5 mg tablet 12.5 mg PO QHS #90 tabs 09/11/22 04/10/25 Rx isosorbide mononitrate 30 mg See Rx Instructions .Route 02/01/24 04/10/25 Rx tablet,extended release 24 hr .COMPLEX #90 tabs bupropion HCl 150 mg tablet,12 hr See Rx Instructions .Route 02/02/24 04/10/25 Rx sustained-release .COMPLEX #90 tabs doxepin 10 mg/mL oral concentrate See Rx Instructions .Route 06/19/24 04/10/25 Rx .COMPLEX #120 mL diclofenac sodium 75 mg See Rx Instructions .Route 07/10/24 04/10/25 Rx tablet,delayed release .COMPLEX #60 tabs losartan 50 mg tablet See Rx Instructions .Route 07/25/24 04/10/25 Rx .COMPLEX #180 tabs citalopram 40 mg tablet 40 mg PO DAILY #90 tabs 08/09/24 04/10/25 Rx testosterone 20.25 mg topical DAILY #75 grams 08/14/24 04/10/25 Rx semaglutide 0.25 mg or 0.5 mg (2 0.25 mg subcut WEEKLY 09/20/24 04/10/25 History mg/3 mL) subcutaneous pen injector ([employer]) eszopiclone 3 mg tablet 3 mg PO QHS PRN insomnia #90 tabs 01/29/25 04/10/25 Rx aspirin 81 mg tablet,delayed See Rx Instructions .Route 02/20/25 04/10/25 Rx release .COMPLEX #90 tabs donepezil 10 mg tablet See Rx Instructions .Route 02/26/25 04/10/25 Rx .COMPLEX #90 tabs ropinirole 1 mg tablet See Rx Instructions .Route 03/19/25 04/10/25 Rx .COMPLEX #90 tabs memantine 10 mg tablet (Namenda) 10 mg PO BID #180 tabs 04/24/25 Rx omeprazole 20 mg capsule,delayed See Rx Instructions .Route 04/24/25 Rx release .COMPLEX #90 caps Sleep Procedure A full CPAP polysomnogram using the [employer] multi-channel system recorded the standard physiologic parameters including EEG, EOG, submentalis EMG, anterior tibialis EMG, EKG, body position, nasal and oral airflow using nasal pressure sensor and thermistor. Respiratory parameters of chest and abdominal movements were recorded with Respiratory Inductance Plethysmography belts. Oxygen saturation was recorded by pulse oximetry. Video monitoring was also performed. Sleep stages, periodic limb movements, and EEG arousals were scored in 30 second epochs according to the criteria of the AASM Scoring Manual. The Apnea-Hypopnea Index was calculated using [facility] guidelines for definition of hypopnea while scoring respiratory events. The patient requested bedtime of midnight but the tech told him this was not possible due to the need to get started with the study. Took a Lunesta 2 mg at the beginning of the study. The patient was started on CPAP using a medium ResMed AirFit N 30 I nasal mask and heated humidity with initial pressure CPAP 5 cm, titrated in increments of 1-2 cm up to a maximum of CPAP 14 cm. At CPAP 10 cm, he spent 56.5 minutes in bed, 6 minutes awake, 50.5 minutes in non-REM, no time in REM, sleep efficiency 89.4% and a residual apnea-hypopnea index 1.2. The lowest saturation was 92%. He had REM at pressures below CPAP 10. At higher pressures he had increasing central apneas with increasing AHI so pressures above 10 cm are not acceptable. He had excessive limb movements throughout the entire night. Sleep Architecture The total recording time was 530.1 minutes. The total sleep time was 489.0 minutes. Sleep latency was 8.2 minutes. REM latency was 250.0 minutes. Sleep efficiency was 92.2%. The patient had 35 awakenings for an awakening index of 4.3. Wake after Sleep Onset time was 32.5 minutes. The patient spent 42.0 minutes, 8.6% of total sleep time in Stage N1. The patient spent 331.0 minutes, 67.7% in Stage N2. The patient spent no time in Stage N3. The patient spent 116.0 minutes, 23.7% in Stage REM. Respiratory Analysis The patient had 17 hypopneas, no obstructive apneas, 1 mixed apnea, and 21 central apneas for an overall Apnea Hypopnea Index of 4.8 events per hour. The REM Apnea Hypopnea Index was 8.3. The NREM Apnea Hypopnea Index was 3.7. The patient had a Central Apnea Hypopnea Index of 2.6 due to excessive pressure at the end of the night. There were no Respiratory Effort Related Arousals. The Respiratory Disturbance Index is 8.1 events per hour. There was minimal Holger-Royal Respirations at the end of the titration when he was on CPAP 14 cm with treatment-emergent central apneas.. Arousals There were 201 total arousals for an arousal index of 24.7. There were 56 spontaneous arousals for an index of 6.9. There were 7 arousals due to respiratory events for an index of 0.9. There were 120 arousals due to periodic limb movements for an index of 14.7. There were 23 arousals due to isolated limb movements for an index of 2.8. Periodic Limb Movements The patient had 47 isolated limb movements with an index of 5.8. The patient had 880 periodic limb movements with index of 108.0. Patient had a total of 927 limb movements with a total limb movement index of 113.7. Oximetry Data The patient had an average oxygen saturation of 92.4% in sleep with a minimum oxygen saturation of 87% and a maximum oxygen saturation of 98%. The patient had 34 oxygen desaturations that were 4% or greater resulting in an Oxygen Desaturation Index of 4.2. The patient spent 0.8 minutes, 0.1% of total sleep time with an oxygen saturation below 88%. Snoring Profile During titration, snoring was mild, eliminated at pressures at 8 cm water pressure and above. Cardiac Profile The EKG showed normal sinus rhythm. The patient had an average pulse rate of 63 bpm with a minimum pulse rate of 50 bpm and a maximum pulse rate of 85 bpm. No arrhythmias noted. EEG Profile Unremarkable, no evidence of seizures. Assessment and Plan Assessment and Plan (1) Obstructive sleep apnea syndrome in adult: Code(s): G47.33 - Obstructive sleep apnea (adult) (pediatric) Status: Acute Assessment and Plan: This full night CPAP titration on 04/04/2025 shows an optimal pressure of CPAP 10 cm. At CPAP 10 cm, he spent 56.5 minutes in bed, 6 minutes awake, 50.5 minutes in non-REM, no time in REM, sleep efficiency 89.4% and a residual apnea-hypopnea index 1.2. The lowest saturation was 92%. He had REM at pressures below CPAP 10, including supine REM. At higher pressures above 10 cm, he had treatment emergent central apneas. At the end of the study on CPAP 14 he had Holger-Royal respiration. This was due to over treatment with treatment emergent central apneas. The patient should be prescribed this ResMed equipment as well as tubing, filters and reservoir. This should be used with all episodes of sleep. Compliance should be reviewed within 31-90 days of starting therapy for usage greater than 4 hours per night greater than 70% of the nights. The patient should be asked about symptoms such as excessive daytime sleepiness, quality of sleep, decreased nocturia, increased mental functioning such as memory, mood, and concentration. He had some brief episodes of bruxism, and these were identified on several epochs including Epoch 486, 487, and 687. 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 Treating sleep apnea can reduce bruxism however he has been on treatment and has been compliant with treatment. If he has clinical evidence of enamel damage, he may benefit from additional therapy such as a mouth guard. (2) PLMD (periodic limb movement disorder): Code(s): G47.61 - Periodic limb movement disorder Status: Acute Assessment and Plan: He has a new diagnosis of periodic limb movement disorder. He had excessive limb movements throughout the entire night and meets criteria for periodic limb movement disorder he does have clinical complaints with uncomfortable feelings in his legs at night and constant kicking at night.. His total limb movement index for the night was 113.7. His periodic limb movement arousal index is 14.7, elevated. His ferritin level is 61.5 on Mar 14, 2025. He is close to an ideal ferritin level of 75 ng/mL or greater. There are nonpharmacologic methods to treat limb movements including daily exercise, stretching calf muscles before bed, avoiding excessive amounts of caffeine and alcohol, vitamin B supplementation, magnesium lotion massaged into legs before bed, and use of a weighted blanket. Pharmacologic therapy is very effective for restless legs syndrome and limb movements during sleep and may include [id number] voltage-gated calcium channel ligands such as gabapentin which is preferable to dopaminergic agents which can have augmentation. Data The data obtained during this sleep study is adequate for interpretation. Certification This sleep study has been reviewed by a board certified sleep medicine physician.
[2025-05-01 13:58] VITALS: BMI 29.7
== END 2025-04-05 07:44 | disposition home or self-care (01) ==
PROVIDERS: PCP Nurse Practitioner Adult Health; Visit Provider Physician Assistant
DX: G47.33 Obstructive sleep apnea (adult) (pediatric) (principal); G47.00 Insomnia, unspecified; G47.61 Periodic limb movement disorder; I10 Essential (primary) hypertension; I25.9 Chronic ischemic heart disease, unspecified
CPT/HCPCS: 95811

== ENCOUNTER 2025-04-10 09:46 | Outpatient (CLI) | payer OTHER, SELFPAY ==
--- OUTSIDE RECORDS SUMMARY | 2025-04-10 17:22 | XMS_ITS | Encounter Summary ---
Author Organization [facility] Healthcare Address [address] [place] [address] Care Team Providers Care Language Tutor Name Role Phone Dimitri Keith MD Primary Care Provider [phone] Caleb Mazariegos NP Unavailable [phone] Antwan Monroy MD Unavailable [phone] Encounter Details Date Type Department Care Team (Late st Contact Info) Description 04/09/2025 Telephone [facility] [address] [place] [address] A, Vincent. [address] [place] [address] Octavia Gee RN Social History Tobacco Use Types Packs/Day Years Used Date Smoking Tobacco: Former Cigarettes Q uit: 1968 Smokeless Tobacco: Never Alcohol Use Standard Drinks/Week Comments Yes 0 (1 standard drink = 0.6 oz pur e alcohol) OCCASIONAL [facility] Utilities Answer Date Recorded In the past 12 months has [employer], gas, oil, or water [employer] threatened to shut off services in your [...] week 01/13/2024 How often do you attend [facility] or alevism services? More than 4 times per year 01/13/2024 Do you belong to any clubs o r organizations such as taoism groups, unions, fraternal or athletic groups, or [...] any time in the past 12 m [facility], were you homeless or living in a half-way (including now)? No 01/13/2024 Personal Safety Answer Date Recorded Have you ever been in or are you currently in a harmful physical or emotional relationship or is someone making you feel afraid or unsafe? Denies 01/11/2024 Sex and Gender Information Value Date Recorded Sex Assigned at Not on file Legal Sex Male 4:37 PM HEALTH SERVICES MANAGER Gender Identity Not on file Sexual Orientation Straight 04/21/2021 7: 57 AM HEALTH SERVICES MANAGER documented as of this encounter Miscellaneous Notes * Telephone Encounter - Octavia Gee RN - 04/09/2025 10:09 AM HEALTH SERVICES MANAGER POST-PROCEDURE TELEPHONE ENCOUNTER Procedure: left shoulder block Medication used: 0.5% bupivacaine PRE PROCEDURE PAIN SCORE: 5 POST PROCEDURE PAIN SCORE: 1 What activities did you do to test your pain during the 2-3 hours following the block that would normally cause your pain? Use of arm/raising and lifting Percentage improvement in pain after the diagnostic medial branch block: 100% Patient reports: significant improvement in pain and level of function after the injection PLAN Proceed with radiofrequency ablation Information reinforced Caller agreeable to plan of care? Yes TH SERVICES MANAGER documented in this encounter Plan of Treatment Not on file documented as of this encounter Visit Diagnoses Not on filedocumented in this encounter Care Teams Language Tutor Relationship Specialty Start Date End Date Dimitri Keith MD PCP - General Family Practice 04/28/21 Caleb Mazariegos NP [address] [place] [address] [place] [address] Nurse Practitioner Orthopedic Surgery 08/11/23 Antwan Monroy MD [address] [place] [address] [place] [address] Consulting Physician Cardiology 01/14/24 documented as of this encounter
--- OUTSIDE RECORDS SUMMARY | 2025-04-10 17:22 | XMS_ITS | Clinical Summary ---
Author Organization [facility] [employer] Address [address] [facility] [place] [address] Care Team Providers Care [employer] Operations [employer] Training Name Role Phone Abdullahi Wilson MD Primary Care Provider [phone] Source Comments [facility] [employer],non-owned Affiliates and Associated Physician Practices is amultiple site organization consisting of ambulatory clinics and hospital sitesin [place], [place], [place] and [place]. This disclosure is being madepursuant to the Care Everywhere program and may not contain all information available regarding this patient. Last updated 18.[employer] Allergies No known active allergies Medications * [...] on file Legal Sex Male 6:03 AM FIELD MARKETING ASSOCIATE Gender Identity Not on file Sexual Orientation Not on file Last Filed Vital Signs Vital Sign Reading Time Taken Comments Blood Pressure 134/76 05/25/2017 3:25 PM FIELD MARKETING ASSOCIATE Pulse 75 05/25/2017 3:25 PM FIELD MARKETING ASSOCIATE Temperature 36.5 C (97.7 F) 05/25/2017 3:25 PM FIELD MARKETING ASSOCIATE Respiratory Rate 24 07/24/2016 11:36 AM FIELD MARKETING ASSOCIATE Oxygen Saturation 96% 05/25/2017 3:25 PM FIELD MARKETING ASSOCIATE Inhaled Oxygen Concentration - - Weight 99.2 kg (218 lb 9.6 oz) 05/25/2017 3:25 P M FIELD MARKETING ASSOCIATE Height 175.3 cm (5' 9) 05/03/2017 1:17 PM FIELD MARKETING ASSOCIATE Body Mass Index 32.28 05/03/2017 1:17 PM FIELD MARKETING ASSOCIATE Plan of Treatment Health Maintenance Due Date [...] PROTEIN SCREENING 05/24/2024 11/02/2013 COVID-19 VACCINE ( - season) 2025 INFLUENZA VACCINE (#1) 2025 02/21/2013, [...] PANEL (CALCIUM TOTAL) Routine 07/24/2016 6:19 AM FIELD MARKETING ASSOCIATE HEMOGLOBIN A1C Routine 07/22/2016 8:54 PM FIELD MARKETING ASSOCIATE MICROALB/CREAT RATIO URINE RANDOM PANEL Timed 11/02/2013 8:17 AM CDT HEPATITIS SCREEN ACUTE Routine 09/15/2011 7:54 AM CDT from Last 3 Months or Most Recently Relevant to Health Maintenance Results * (ABNORMAL) BASIC METABOLIC PANEL (CALCIUM TOTAL) (07/24/2016 6:19 AM FIELD MARKETING ASSOCIATE) BUN 15 7 - 26 mg/dL [facility] Creatinine 1.1 0.6 - 1.2 mg/dL [facility] Sodium 139 136 - 145 mmol/L [facility] Potassium 4.5 3.5 - 4.5 mmol/L [facility] Chloride 98 98 - 107 mmol/L [facility] CO2 28 22 - 29 mmol/L [facility] Glucose 141(H) 70 - 115 mg/dL [facility] Calcium 9.2 8.4 - 10.2 mg/dL [facility] Anion Gap 18 8 - 18 [facility] BUN/Creatinine Ratio 14 7 - 23 [facility] Osmolality Calculated 291 270 - 300 mOsm/kg [facility] eGFR >60 >60 mL/min/1.7 3 m2 [facility] Blood specimen (specimen) BLOOD SPECIMEN / Unknown 07/24/2016 6:19 AM FIELD MARKETING ASSOCIATE 07/24/2016 6:46 AM FIELD MARKETING ASSOCIATE us Historical Provider LAB - CHEMISTRY ORDERABLE S Final Result Performing Organization Address City/State/[facility] Co de Phone Number [address] [phone] * (ABNORMAL) HEMOGLOBIN A1C (07/22/2016 8:54 PM FIELD MARKETING ASSOCIATE) Hemoglobin A1c 7.0(H) 4.4 - 6.3 % [facility] Estimated Average Glucose 154 mg/dL [facility] Comment: HbA1c Interpretation: Treatment target values recommended by ADA and other clinical organizations should be used to evaluate metabolic control in patients. Treatment Target Values: Normal : < 5.7% Pre-diabetes: 5.7-6.4% Diabetes: Equal to or greater than 6.5% Reference: [place] [employer] Standards of Care in Diabetes -2014 In patients 70 years and older consider HbA1c target range of 7.0-7.5% Reference: Diabetes Mellitus in Older People: Position Statement on behalf of the International Association of Gerontology and Geriatrics (IAGG), the Diabetes Working Republican for Older People (EDWPOP), and the International Task Force of Experts in Diabetes. Juan Ness et al. J [place] [employer]. 2012 Test results diagnostic [...] BLOOD SPECIMEN / Unknown 07/22/2016 8:54 PM FIELD MARKETING ASSOCIATE 07/22/2016 8:59 PM FIELD MARKETING ASSOCIATE Radha Parkinson MD LAB - CHEMISTRY ORDERABLE S Final Result [address] [phone] * MICROALB/CREAT RATIO URINE RANDOM PANEL (11/02/2013 8:17 AM CDT) Pathologist [facility] Albumin Random Urine 22.0 Not Established mcg/mL [facility] Creatinine Urine 167 Not Established mg/dL [facility] Urine Albumin/Creati nine Ratio 13 <30 mg/g [facility] Urine specimen (specimen) URINE / Unknown 11/02/2013 8:17 AM CDT 11/02/2013 9:46 AM CDT Abdullahi Wilson MD LAB - URINE CHEMISTRY ORDERA BLES Final Result Performing Organization Address City/[facility] Co de Phone Number [address] [phone] * HEPATITIS SCREEN ACUTE (09/15/2011 7:54 AM CDT) Pathologist [facility] Hepatitis A Virus Antibody IgM NEGATIVE NEGATIVE [facility] Hepatitis C Antibody NEGATIVE NEGATIVE [facility] Comment: Anti-HCV screen indicates no serologic evidence of past or current infection with Hepatitis C Virus. Patients with unexplained liver disease who are immunocompromised or suspected of having acute Hepatitis C infection may benefit from Nucleic Acid Test (EDGARD) for Hepatitis C Viral RNA to confirm Hepatitis C status. Hepatitis B Virus Surface Antigen NONREACTIVE NONREACTIVE [facility] Hepatitis B Core Virus Antibody IgM NEGATIVE NEGATIVE [facility] 09/15/2011 7:54 AM CDT 09/15/2011 9:24 AM CDT us Historical Provider LAB - CHEMISTRY ORDERABLE S Final Result [facility] [address] [place] [address] from Last 3 Months or Most Recently Relevant to Health Maintenance Insurance ANTHEM Care Teams Chemical Operations And Training Relationship Specialty Start Date End Date Abdullahi Wilson MD PCP - General 10/25/17
[2025-04-10 18:47] LABS: Alanine Aminotransferase 20 U/L (6-50); Albumin Level 4.4 g/dL (3.5-5.1); Alkaline Phosphatase 100 U/L (38-126); Anion Gap 6 mmol/L (4-12); Aspartate Amino Transferase 64 U/L (17-59); Bilirubin,Total 0.9 mg/dL (0.2-1.3); Blood Urea Nitrogen 23 mg/dL (9-20); Calcium 9.5 mg/dL (8.4-10.2); Carbon Dioxide 31 mmol/L (22-30); Chloride 101 mmol/L (98-107); Cholesterol 245 mg/dL (0-200); Estimated Glomerular Filt Rate 58; Glucose 117 mg/dL (65-110); HDL Direct 51 mg/dL; Potassium 5.0 mmol/L (3.4-5.0); Sodium 138 mmol/L (137-145); Total Protein 7.5 g/dL (6.3-8.2); Triglycerides 186 mg/dL (<150)
[2025-04-10 18:54] LABS: Hematocrit 48.3 % (42.0-52.0); Hemoglobin 15.6 g/dL (14.0-18.0); Mean Corpuscular HGB Conc 32.3 g/dl (32-36); Mean Corpuscular Hemoglobin 30.9 pg (26-34); Mean Corpuscular Volume 95.6 fl (80-100); Platelet Count Result 188 k/mm3 (150-375); Red Blood Count 5.05 M/mm3 (4.6-6.20); White Blood Count 3.8 K/mm3 (4.5-10.0)
[2025-04-10 18:55] LABS: MALB Creatinine Ratio 36.6 mg/g (0-30)
[2025-04-10 18:59] LABS: Hemoglobin A1C 5.7 % (<5.7)
[2025-04-10 19:41] LABS: Vitamin B12 912.0 pg/mL (239-931)
[2025-04-13 20:08] LABS: Free Testosterone (Direct) 2.7 pg/mL (6.6-18.1)
== END 2025-04-10 09:47 | disposition home or self-care (01) ==
LOC: ANHBWCLAB 09:47
PROVIDERS: PCP Nurse Practitioner Adult Health; Visit Provider Nurse Practitioner Adult Health
DX: D64.9 Anemia, unspecified (principal); I10 Essential (primary) hypertension; E11.9 Type 2 diabetes mellitus without complications; I25.10 Atherosclerotic heart disease of native coronary artery without angina pectoris; E29.1 Testicular hypofunction
CPT/HCPCS: 36415; 80053; 80061; 82043; 82565; 82607; 83036; 84402; 84403; 85027